=== PATIENT | female | born 1930 | race Caucasian/White ===

== ENCOUNTER 2017-11-05 11:20 | Inpatient (IN) | payer MEDICARE ==
[~2017-11-05] VITALS: Ht 160 cm; Wt 43.5 kg
[~2017-11-05 11:20] MED LIST: AMBIEN5 MG PO; AMOXICILLIN 50500 M1 PO; ANTIVERT25 MG PO; CEPHALEXIN500 MG PO; ETODOLAC 400 M400 MG; LEVAQUIN 500 M500 M4 PO; OMEPRAZOLE; PREDNISONE 10 M10 MG PO; PRILOSEC2.5 MG PO; SUDAFED30 MG PO; TOPROL XL25 MG PO; TRAMADOL 50 MG50 MG PO
[2017-11-05 11:46] VITALS: BP 142/80
[2017-11-05] MEDS ORDERED: HYDROCODONE-AP1 EAC6 PO (11:49)
[2017-11-05] MEDS ORDERED: XANAX 0.5 MG0.5 MG PO (11:49)
[2017-11-05 12:40] LABS: URINE BILIRUBIN NEGATIVE (Negative); URINE BLOOD NEGATIVE (Negative); URINE CLARITY CLEAR; URINE COLOR YELLOW; URINE GLUCOSE-RANDOM NEGATIVE (Negative); URINE KETONES NEGATIVE (Negative); URINE LEUKOCYTES-REFLEX 1+ (Negative); URINE NITRITE-REFLEX NEGATIVE (Negative); URINE PROTEIN NEGATIVE (Negative); URINE UROBILINOGEN 0.2 E.U./dl (0.2-1.0)
[2017-11-05 13:03] LABS: ABSOLUTE BASOPHILS 0.1 thou/uL (0.0-0.2); ABSOLUTE EOSINOPHILS 0.1 thou/uL (0.0-0.7); ABSOLUTE LYMPHOCYTES 1.7 thou/uL (0.8-5.3); ABSOLUTE MONOCYTES 0.7 thou/uL (0.0-1.2); ABSOLUTE NEUTROPHILS 6.2 thou/uL (1.6-8.1); BASOPHILS 0.6 %; EOSINOPHILS 0.8 %; HEMOGLOBIN 12.5 gm/dL (12.0-15.0); LYMPHOCYTES 19.4 %; MCH 30.4 pg (26.0-34.0); MCHC 32.8 g/dL (28.0-37.0); MCV 92.6 fL (80.0-100.0); MONOCYTES 8.4 %; MPV 7.2 fl. (7.2-11.1); NUCLEATED RBCS 0 /100WBC; PLATELET COUNT* 260 thou/uL (150-400); POLYS 70.8 %; RDW-CV 14.5 % (10.5-14.5); WBC 8.7 thou/uL (4.0-11.0)
[2017-11-05 13:19] LABS: ANION GAP 5 mmol/L (7-16); BUN 13 mg/dL (7-18); CHLORIDE 103 mmol/L (98-107); CO2 32 mmol/L (21-32); CREATININE 0.9 mg/dL (0.6-1.3); GLUCOSE 102 mg/dL (70-99); POTASSIUM 4.1 mmol/L (3.5-5.1); SODIUM 140 mmol/L (136-145)
[2017-11-05 13:24] LABS: ALBUMIN 3.3 g/dL (3.4-5.0); ALKALINE PHOSPHATASE 75 U/L (46-116); LIPASE 122 U/L (73-393); SGOT 18 U/L (15-37); SGPT 17 U/L (30-65); TOTAL BILIRUBIN 0.4 mg/dL (<0.1-1.0); TOTAL PROTEIN 7.2 g/dL (6.4-8.2); TROPONIN-I LEVEL <0.06 ng/mL (<0.06)
--- NOTE | 2017-11-05 15:06 | EKG ---
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: : 1930 Requested By: Sneha Menendez Order Number: [id number] MD: Dima Veras Measurements Intervals [place] Rate: 78 P: 32 IA: 198 QRS: 36 QRSD: 93 T: 47 QT: 401 QTc: 457 Interpretive Statements Sinus rhythm Consider left ventricular hypertrophy Compared to ECG 08/08/2017 10:30:29 No significant changes Electronically Signed On 11-05-2017 15:06:32 PAVER by Dima Veras [email or web address] <ELECTRONICALLY SIGNED> By: Dima Veras MD, [facility] 11/05/17 1506 1346 1346 Dima Veras MD, [facility] /EPI
[2017-11-05 15:24] VITALS: BP 180/64
[2017-11-05 15:30] VITALS: BP 176/62
[2017-11-05 20:00] VITALS: BP 166/72
[2017-11-06] VITALS: BP 124/70
[2017-11-06 04:45] LABS: HEMATOCRIT 33.8 % (37.0-47.0); HEMOGLOBIN 10.8 gm/dL (12.0-15.0); MCH 29.7 pg (26.0-34.0); MCHC 32.1 g/dL (28.0-37.0); MCV 92.5 fL (80.0-100.0); RBC 3.65 mil/uL (4.20-5.00); RDW-CV 14.4 % (10.5-14.5)
[2017-11-06 05:04] LABS: CALCIUM 8.3 mg/dL (8.5-10.1); CREATININE 0.7 mg/dL (0.6-1.3); MAGNESIUM 1.7 mg/dL (1.8-2.4); POTASSIUM 3.6 mmol/L (3.5-5.1)
[2017-11-06 08:00] VITALS: BP 151/75
--- NOTE | 2017-11-06 13:38 | 2DMMODE ---
[place] [address] 2 D/M-MODE ECHOCARDIOGRAM Name: MADIHA CAMERON Room: [address] IN [facility]#: [id number] Admission: 11/05/17 Attend Phys: Rey Andrews Discharge: Date of : 34 Date of Service: 11/06/17 1338 Report #: [id number] THIS REPORT FOR: //name// APPROVED REPORT Study performed: 11/06/2017 10:32:07 EXAM: Comprehensive 2D, Doppler, and color-flow Echocardiogram Patient Location: In-Patient Room #: [facility] Status: routine BSA: 1.41 HR: 67 bpm BP: 124/70 mmHg Rhythm: NSR Other Information Study Quality: Good Indications COPD ?e 2D Dimensions LVEF(%): 75.30 (>50%) IVSd: 13.02 (7-11mm) LVOT Diam: 19.60 (18-24mm) LVDd: 37.08 mm PWd: 10.12 (7-11mm) Ascending Ao: 33.75 (22-36mm) LVDs: 21.02 (25-40mm) Aortic Root: 28.96 mm Villarreal's LVEF: 75.30 % Volumes Left Atrial Volume (Systole) LA ESV Index: 43.00 mL/m2 Aortic Valve AoV Peak Foster.: 1.30 m/s AO Peak Gr.: 6.71 mmHg LVOT Max P.87 mmHg AO Mean Gr.: 3.39 mmHg LVOT Mean P.81 mmHg LVOT Max V: 1.31 m/s AO V2 VTI: 30.32 cm LVOT Mean V: 0.75 m/s LIZBETH (VTI): 2.89 cm2 LVOT V1 VTI: 29.02 cm AI Cecil: 2.21 m/s2 AI PHT: 467.56 [place] [address] 2 D/M-MODE ECHOCARDIOGRAM Name: MADIHA CAMERON Room: [address] IN M.R.#: [id number] Admission: 11/05/17 Attend Phys: Rey Andrews Discharge: Date of : 34 Date of Service: 11/06/17 1338 Report #: [id number] Mitral Valve E/A Ratio: 1.04 MV Decel. Time: 231.47 ms MV E Max Foster.: 0.89 m/s MV PHT: 67.13 ms MVA (PHT): 3.28 cm2 TDI E/Lateral E': 11.13 E/Medial E': 14.83 Medial E' Foster.: 0.06 m/s Lateral E' Foster.: 0.08 m/s Pulmonary Valve PV Peak Foster.: 0.78 m/s PV Peak Gr.: 2.45 mmHg Left Ventricle The left ventricle is normal size. There is normal LV segmental wall motion. There is normal left ventricular wall thickness. Left ventricular systolic function is normal. The left ventricular ejection fraction is within the normal range. LVEF is 55-60%. The left ventricular diastolic function is normal. Right Ventricle The right ventricle is normal size. The right ventricular systolic function is normal. Atria Left atrium is moderately dilated. The right atrium size is normal. Aortic Valve The aortic valve is normal in structure. Mild aortic regurgitation. There is no aortic valvular stenosis. Mitral Valve The mitral valve is normal in structure. Mild mitral regurgitation. No evidence of mitral valve stenosis. Tricuspid Valve The tricuspid valve is normal in structure. Unable to assess PA pressure. Trace tricuspid regurgitation. Pulmonic Valve The pulmonary valve is normal in structure. [place] [address] 2 D/M-MODE ECHOCARDIOGRAM Name: KRZYSZTOFZAYMADIHA Carter Room: [address] IN .R.#: [id number] Admission: 11/05/17 Attend Phys: Rey Andrews Discharge: Date of : 34 Date of Service: 11/06/17 1338 Report #: [id number] Great Vessels The aortic root is normal in size. IVC is normal in size and collapses with >50% inspiration Pericardium There is no pericardial effusion. <Conclusion> LVEF is 55-60%. Left atrium is moderately dilated. Mild aortic regurgitation. Mild mitral regurgitation. <ELECTRONICALLY SIGNED> By: Dima Veras MD, FACC 11/06/17 1338 1338 1338 Dima Veras MD, FACC /INF
[2017-11-06 16:02] VITALS: BP 144/80
[2017-11-06 21:00] VITALS: BP 134/50
[2017-11-07 03:56] LABS: CALCIUM 8.4 mg/dL (8.5-10.1); CREATININE 0.7 mg/dL (0.6-1.3); MAGNESIUM 1.7 mg/dL (1.8-2.4); POTASSIUM 3.6 mmol/L (3.5-5.1)
[2017-11-07 04:22] VITALS: BP 148/62
[2017-11-07 08:00] VITALS: BP 139/59
[2017-11-07 15:47] VITALS: BP 139/74
[2017-11-07 21:00] VITALS: BP 164/55
[2017-11-08 05:16] LABS: HEMATOCRIT 36.5 % (37.0-47.0); HEMOGLOBIN 11.9 gm/dL (12.0-15.0); MCH 30.1 pg (26.0-34.0); MCHC 32.6 g/dL (28.0-37.0); MCV 92.3 fL (80.0-100.0); MPV 7.9 fl. (7.2-11.1); RBC 3.95 mil/uL (4.20-5.00); RDW-CV 14.8 % (10.5-14.5); WBC 7.8 thou/uL (4.0-11.0)
[2017-11-08 05:37] LABS: ALBUMIN 3.3 g/dL (3.4-5.0); CALCIUM 9.1 mg/dL (8.5-10.1); CREATININE 0.7 mg/dL (0.6-1.3); MAGNESIUM 2.1 mg/dL (1.8-2.4); POTASSIUM 3.5 mmol/L (3.5-5.1); TOTAL BILIRUBIN 0.4 mg/dL (<0.1-1.0); TOTAL PROTEIN 6.5 g/dL (6.4-8.2)
[2017-11-08 08:25] VITALS: BP 160/78
[2017-11-08 08:27] VITALS: BP 160/78
[2017-11-08 16:16] VITALS: BP 153/72
[2017-11-09 04:00] VITALS: BP 136/68
[2017-11-09 04:44] LABS: HEMATOCRIT 35.9 % (37.0-47.0); HEMOGLOBIN 11.8 gm/dL (12.0-15.0); MCHC 32.9 g/dL (28.0-37.0); MCV 91.3 fL (80.0-100.0); MPV 7.7 fl. (7.2-11.1); RBC 3.93 mil/uL (4.20-5.00); RDW-CV 14.5 % (10.5-14.5); WBC 7.8 thou/uL (4.0-11.0)
[2017-11-09 05:20] LABS: ALBUMIN 3.2 g/dL (3.4-5.0); CALCIUM 8.9 mg/dL (8.5-10.1); CREATININE 0.7 mg/dL (0.6-1.3); MAGNESIUM 1.8 mg/dL (1.8-2.4); TOTAL BILIRUBIN 0.4 mg/dL (<0.1-1.0); TOTAL PROTEIN 6.8 g/dL (6.4-8.2)
[2017-11-09 07:52] VITALS: BP 157/79
[2017-11-09 09:08] VITALS: BP 157/79
[2017-11-09] MEDS ORDERED: NORVASC5 MG PO (14:01)
[2017-11-09] MEDS ORDERED: BACID CAPLET1 EACH PO (14:02)
[2017-11-09] MEDS ORDERED: METAMUCIL1 EAC1 PO (14:02)
[2018-03-29] MEDS ORDERED: TYLENOL325 MG PO (00:50)
[2018-03-29] MEDS ORDERED: AMLODIPINE BESYL5 M1 PO (09:18)
[2018-03-29] MEDS ORDERED: PROTONIX 20 MG20 M1 PO (09:18)
[2018-03-29] MEDS ORDERED: METOPROLOL SUCC25 M1 PO (09:18)
[2018-03-29] MEDS ORDERED: MIRALAX17 GM PO (10:54)
[2018-04-13] MEDS ORDERED: KEFLEX250 MG (19:12)
== END 2017-11-09 15:26 | disposition home or self-care (01) | DRG 389 ==
LOC: M.ERS 11:20 → M.ORTHSURG 14:46 → M.TBA-ER 14:46 → M.ORTHSURG 15:29
PROVIDERS: Family Medicine; Internal Medicine; Nurse Practitioner Family; ADMIT Internal Medicine
DX: K56.600 Partial intestinal obstruction, unspecified as to cause (principal); E44.0 Moderate protein-calorie malnutrition; Z68.1 Body mass index [BMI] 19.9 or less, adult; J98.11 Atelectasis; K59.00 Constipation, unspecified; Z96.642 Presence of left artificial hip joint; J44.9 Chronic obstructive pulmonary disease, unspecified; I11.9 Hypertensive heart disease without heart failure; F41.9 Anxiety disorder, unspecified; E87.8 Other disorders of electrolyte and fluid balance, not elsewhere classified

== ENCOUNTER 2018-02-05 01:24 | Inpatient (IN) | payer MEDICARE ==
[~2018-02-05] VITALS: Ht 160 cm; Wt 49.0 kg
[~2018-02-05 01:24] MED LIST changes: +BACID CAPLET1 EACH PO; +HYDROCODONE-AP1 EAC6 PO; +METAMUCIL1 EAC1 PO; +NORVASC5 MG PO; +XANAX 0.5 MG0.5 MG PO
[2018-02-05 01:25] VITALS: BP 228/69
[2018-02-05 02:04] LABS: HEMATOCRIT 39.1 % (37.0-47.0); HEMOGLOBIN 12.5 gm/dL (12.0-15.0); MCH 29.8 pg (26.0-34.0); MCHC 31.9 g/dL (28.0-37.0); MCV 93.5 fL (80.0-100.0); MPV 7.3 fl. (7.2-11.1); NUCLEATED RBCS 0 /100WBC; PLATELET COUNT* 320 thou/uL (150-400); RBC 4.19 mil/uL (4.20-5.00); WBC 12.9 thou/uL (4.0-11.0)
[2018-02-05 02:21] LABS: URINE CLARITY CLEAR; URINE COLOR YELLOW
[2018-02-05 02:22] LABS: URINE BILIRUBIN NEGATIVE (Negative); URINE BLOOD NEGATIVE (Negative); URINE GLUCOSE-RANDOM TRACE (Negative); URINE KETONES NEGATIVE (Negative); URINE LEUKOCYTES-REFLEX 1+ (Negative); URINE NITRITE-REFLEX NEGATIVE (Negative); URINE PROTEIN NEGATIVE (Negative); URINE UROBILINOGEN 0.2 E.U./dl (0.2-1.0)
[2018-02-05 02:37] LABS: SQUAMOUS 0-3 Few /LPF (0-3); WBC CLUMPS Few (None Seen)
[2018-02-05 02:38] LABS: BACTERIA-REFLEX >30 Many /HPF (None Seen); CASTS None Seen /LPF (None Seen); CRYSTALS None Seen /LPF (None Seen); MUCUS 0-3 Light strn/LPF (None Seen); URINE RBC 0-2 Rare /HPF (0-2)
[2018-02-05 02:51] LABS: ANION GAP 10 mmol/L (7-16); BUN 11 mg/dL (7-18); CALCIUM 8.8 mg/dL (8.5-10.1); CHLORIDE 101 mmol/L (98-107); CO2 30 mmol/L (21-32); CREATININE 0.9 mg/dL (0.6-1.3); GLUCOSE 112 mg/dL (70-99); POTASSIUM 3.4 mmol/L (3.5-5.1); SODIUM 141 mmol/L (136-145)
[2018-02-05 02:59] LABS: ALBUMIN 3.6 g/dL (3.4-5.0); ALKALINE PHOSPHATASE 69 U/L (46-116); LIPASE 123 U/L (73-393); MAGNESIUM 1.8 mg/dL (1.8-2.4); SGOT 19 U/L (15-37); SGPT 18 U/L (30-65); TOTAL BILIRUBIN 0.6 mg/dL (<0.1-1.0); TROPONIN-I LEVEL <0.06 ng/mL (<0.06)
[2018-02-05 03:00] LABS: NT-PRO BRAIN NAT PEPTIDE 755 pg/mL (<300)
[2018-02-05 03:55] VITALS: BP 138/72
[2018-02-05 05:07] LABS: ABSOLUTE LYMPHOCYTES 0.5 thou/uL (0.8-5.3); ABSOLUTE MONOCYTES 0.6 thou/uL (0.0-1.2); ABSOLUTE NEUTROPHILS 11.7 thou/uL (1.6-8.1); ANISOCYTOSIS Occasional
[2018-02-05 05:08] LABS: CLUMPED PLTS OCCASIONAL; PLATELET ESTIMATE ADEQUATE
[2018-02-05 08:39] VITALS: BP 133/51
--- NOTE | 2018-02-05 11:03 | EKG ---
[place] [address] ELECTROCARDIOGRAM REPORT Name: MADIHA CAMERON Room: [address] IN [facility]#: [id number] Admission: 02/05/18 Attend Phys: Mary Powell Discharge: Date of : 32 Report #: [id number] THIS REPORT FOR: //name// [facility] ED Test Date: 2018-02-05 Test Time: 01:38:39 Pat Name: MADIHA CAMERON Department: Room: Gender: Javascript Engineer: ARUNA Machado : 1930 Requested By: Paco Orantes Order Number: [id number] MD: Dima Veras Measurements Intervals [place] Rate: 98 P: 85 TN: 211 QRS: 35 QRSD: 85 T: 44 QT: 386 QTc: 493 Interpretive Statements Sinus rhythm Borderline prolonged TN interval Consider left ventricular hypertrophy ST elevation, consider early repolarization Borderline prolonged QT interval Compared to ECG 11/05/2017 13:46:46 no change Electronically Signed On 02-05-2018 11:02:44 CDT by Dima Veras [email or web address] <ELECTRONICALLY SIGNED> By: Dima Veras MD, [facility] 02/05/18 1102 0138 0138 Dima Veras MD, [facility] /EPI
[2018-02-05 13:02] VITALS: BP 126/42
[2018-02-05 16:08] VITALS: BP 128/62
[2018-02-05 19:40] VITALS: BP 136/72
[2018-02-06] VITALS: BP 140/58
[2018-02-06 04:00] VITALS: BP 123/56
[2018-02-06 04:37] LABS: HEMATOCRIT 37.1 % (37.0-47.0); HEMOGLOBIN 11.6 gm/dL (12.0-15.0); MCH 29.8 pg (26.0-34.0); MCHC 31.2 g/dL (28.0-37.0); MCV 95.5 fL (80.0-100.0); MPV 7.8 fl. (7.2-11.1); RBC 3.89 mil/uL (4.20-5.00); RDW-CV 15.3 % (10.5-14.5); WBC 22.7 thou/uL (4.0-11.0)
[2018-02-06 04:45] LABS: CALCIUM 8.5 mg/dL (8.5-10.1); CREATININE 0.7 mg/dL (0.6-1.3); MAGNESIUM 1.9 mg/dL (1.8-2.4); POTASSIUM 4.8 mmol/L (3.5-5.1)
[2018-02-06 07:35] VITALS: BP 147/69
[2018-02-06 12:00] VITALS: BP 127/61
[2018-02-06 16:00] VITALS: BP 137/62
[2018-02-06 20:00] VITALS: BP 143/67
[2018-02-07] VITALS (7 sets, daily range): BP systolic 131–152; BP diastolic 51–69
[2018-02-07 04:47] LABS: HEMATOCRIT 33.7 % (37.0-47.0); HEMOGLOBIN 10.9 gm/dL (12.0-15.0); MCH 29.9 pg (26.0-34.0); MCHC 32.4 g/dL (28.0-37.0); MCV 92.2 fL (80.0-100.0); MPV 8.1 fl. (7.2-11.1); RBC 3.66 mil/uL (4.20-5.00); WBC 17.1 thou/uL (4.0-11.0)
[2018-02-07 05:01] LABS: CALCIUM 8.8 mg/dL (8.5-10.1); CREATININE 0.8 mg/dL (0.6-1.3); MAGNESIUM 1.9 mg/dL (1.8-2.4)
[2018-02-07 05:10] LABS: POTASSIUM 3.7 mmol/L (3.5-5.1)
[2018-02-08 04:18] VITALS: BP 141/71
--- NOTE | 2018-02-08 07:49 | CON ---
[facility] [address] [place] [address] CONSULTATION Name: MADIHA CAMERON Room: [address] IN M.R.#: [id number] Admission: 02/05/18 Attend Phys: Mary Powell Discharge: Date of : 32 Report #: [id number] THIS REPORT FOR: //name// CC: Jameel Torres REQUESTING PHYSICIAN: Dr. Mckenzie Rodrigez. REASON FOR CONSULTATION: Chest pain and respiratory failure. DISCUSSION: The patient is an 87-year-old woman who has a history of underlying bronchiectasis and COPD. She is a lifelong nonsmoker. She has not been steroid or O2 dependent. She is followed in my office with her last visit in September of 2017. She presented to the Emergency Department this morning. Unfortunately, she is not a very good historian. Does tend to ramble at times. Complaints of right-sided chest pain is actually what triggered her visit. It is not clear exactly how long she has been having this. The timing tends to vary at different times we talked about it. Currently, is pain free at the time I am seeing her. Because of her bronchiectasis, she has typically had a chronic cough and sputum production. However, she notes overall she has been coughing less and having less sputum than normal, which she has been bringing up. It is just slightly discolored recently. Denies any hemoptysis. She has not checked her temperature, but has had spells where she has felt hot and cold and wondered if she was not running a fever. At home, she uses a nebulizer with albuterol, which she typically does 3 times a day. We have tried other medications and inhalers in the past or at least have recommended them though she has never been willing to follow through with that. She is not on any oxygen. Her O2 saturations have always been in the 90s when seen in the office. When seen in the Emergency Department today, it does not appear that she was in hot distress. Did have a temperature of 38 degrees. Her white blood cell count was 12,900 with a mild left shift. X-ray suggested a right lower lobe infiltrate. She was given azithromycin and Rocephin in the ED and has been admitted. At the time I am seeing her, she is feeling fairly comfortable. In fact, she is asking when she can go home. States she has a lot of yard work to do. She has had the Pneumovax and the Prevnar. I believe she had the flu vaccine for this Influenza season as well. She has the bronchiectasis as noted. She had a left lower lobectomy done in 1952 [place] [address] CONSULTATION Name: MADIHA CAMERON Room: [address] IN .R.#: [id number] Admission: 02/05/18 Attend Phys: Mary Powell Discharge: Date of : 32 Report #: [id number] PAST MEDICAL HISTORY: Remarkable for the COPD and bronchiectasis as noted. She has not been steroid or O2 dependent. She has had some arrhythmias in the past, type unknown. Has previously seen Dr. Rice, but no longer has to follow up with Cardiology. Prior echocardiograms done here at [place] have not shown a decrease in her ejection fraction. She has had issues with dysphagia. Had recent EGD and colonoscopy done (December 2017). Had a colon polyp removed. She also had a mild Schatzki's ring, which was dilated. Small hiatal hernia. Did have nonbleeding erosive gastropathy noted. Had recommended that she use Prilosec 40 mg daily and was to have followup within the GI office (Dr. Howard). She also has history of prior cholecystectomy, hysterectomy with BSO, hip replacement, left shoulder surgery, hypertension, GERD. HOME MEDICATIONS: Albuterol via nebulizer. Appears her other medications may be p.r.n. hydrocodone, , metoprolol, Prilosec, acidophilus, Norvasc and Metamucil. REVIEW OF SYSTEMS: ROS was done. Question reliability of some of her responses. She denies any recent problems with dysphagia since she was dilated. No nausea or vomiting. She does tend towards constipation. She has not noted any blood in her stools. She has chronic lower extremity edema. She does not believe that is changed. Denies recent falls. The falls have been an issue in the past. Appetite has been fair. She does not believe she has had any recent weight loss. FAMILY HISTORY: Positive for cancer, heart disease. PHYSICAL EXAMINATION: GENERAL APPEARANCE: A very thin woman. She is sitting up in her chair. She is alert, cooperative and is quite pleasant. HEENT: Head is normocephalic. Sclerae are nonicteric. Mucous membranes a little dry, but no thrush is seen. NECK: Negative for any adenopathy. Neck muscles are quite developed. No supraclavicular adenopathy. HEART: Regular. She has a grade 1/6 systolic murmur. LUNGS: She has a well-healed left thoracotomy scar. She has few crackles heard in the right base. Decreased breath sounds in the left base. Otherwise, no wheezing is heard. ABDOMEN: Soft, without appreciable hepatosplenomegaly. LOWER EXTREMITIES: She does have trace edema. Does have some venous stasis changes. SKIN: Warm and dry. NEUROLOGIC: Alert and oriented. LABORATORY AND X-RAY FINDINGS: BUN is 11, creatinine 0.9, potassium is 3.4. ProBNP 755. White blood cell count 12,900, hemoglobin 12.5, hematocrit of 39.1, platelets are normal. Prior alpha 1 antitrypsin [place] [address] CONSULTATION Name: MADIHA CAMERON Room: [address] IN [facility].#: [id number] Admission: 02/05/18 Attend Phys: Mary Powell Discharge: Date of : 32 Report #: [id number] cultures have been sent. Urine is pending. IMPRESSION: 1. Chest pain has resolved, exact etiology not clear. It is possible she may have had some pleuritic pain, perhaps related to pneumonia. She does have crackles heard in the right base. There are some changes on her x-ray. Given the amount of scarring that she has related to the bronchiectasis, it is difficult to know what is new versus what is old. 2. Recent EGD revealing nonbleeding erosive gastropathy. PLAN: 1. Check sputum if able. 2. CT scan of her chest. We will get a CTA of her chest, which will also allow us to rule out a PE as a cause of her pain. Can also visualize the lung santamaria. 3. I would continue with antibiotics. 4. Neb treatments with the DuoNeb every 4 hours. 5. O2 as needed and wean. 6. Discussed resuscitative status with her. She apparently does not have paperwork filled out. However, she does wish aggressive medical care, she would not want to go through cardiopulmonary resuscitation nor be intubated. <ELECTRONICALLY SIGNED> By: Amanda Carrasquillo MD 02/08/18 0749 1023 1932Amanda Carrasquillo MD /nt
[2018-02-08 08:00] VITALS: BP 168/60
[2018-02-08 11:30] VITALS: BP 173/53
[2018-02-08 16:00] VITALS: BP 137/60
[2018-02-08 20:00] VITALS: BP 114/55
[2018-02-09 04:38] VITALS: BP 142/62
[2018-02-09 08:00] VITALS: BP 158/82
[2018-02-09 15:28] VITALS: BP 137/71
[2018-02-09 22:00] VITALS: BP 151/63
[2018-02-10 08:00] VITALS: BP 172/88
[2018-02-10] MEDS ORDERED: HYDROCODONE-AP1 EAC6 PO (09:02)
[2018-02-10] MEDS ORDERED: XANAX 0.5 MG0.5 MG PO (09:02)
[2018-02-10] MEDS ORDERED: PREDNISONE 20 M20 MG PO (09:02)
[2018-02-10] MEDS ORDERED: TRAMADOL 50 MG50 MG PO (09:02)
[2018-02-10] MEDS ORDERED: DUONEB 2.5-0.5 M3 ML INH (09:02)
[2018-02-10] MEDS ORDERED: AMBIEN5 MG PO (09:02)
[2018-02-10] MEDS ORDERED: LEVAQUIN 500 M500 M2 PO (09:02)
[2018-02-10 11:18] VITALS: BP 172/88
[2018-03-29] MEDS ORDERED: TYLENOL325 MG PO (00:50)
[2018-03-29] MEDS ORDERED: PROTONIX 20 MG20 M1 PO (09:18)
[2018-03-29] MEDS ORDERED: METOPROLOL SUCC25 M1 PO (09:18)
[2018-03-29] MEDS ORDERED: AMLODIPINE BESYL5 M1 PO (09:18)
[2018-03-29] MEDS ORDERED: MIRALAX17 GM PO (10:54)
[2018-04-13] MEDS ORDERED: KEFLEX250 MG (19:12)
== END 2018-02-10 13:10 | DRG 871 ==
LOC: M.ERS 01:24 → M.TBA-ER 03:18 → M.2W 03:18 → M.3W 02-09 17:54
PROVIDERS: Emergency Medicine Emergency Medical Services; Internal Medicine; ADMIT Internal Medicine
PROC: 5A09357 Assistance with Respiratory Ventilation, Less than 24 Consecutive Hours, Continuous Positive Airway Pressure (ICD-10-PCS; principal; 2018-02-05)
DX: A41.9 Sepsis, unspecified organism (principal); J15.6 Pneumonia due to other Gram-negative bacteria; J15.4 Pneumonia due to other streptococci; J96.21 Acute and chronic respiratory failure with hypoxia; J44.0 Chronic obstructive pulmonary disease with (acute) lower respiratory infection; I10 Essential (primary) hypertension; K21.9 Gastro-esophageal reflux disease without esophagitis; Z96.642 Presence of left artificial hip joint; Z90.2 Acquired absence of lung [part of]; Z79.899 Other long term (current) drug therapy; Z90.49 Acquired absence of other specified parts of digestive tract; Z90.710 Acquired absence of both cervix and uterus; Z90.79 Acquired absence of other genital organ(s); Z90.722 Acquired absence of ovaries, bilateral; Z80.8 Family history of malignant neoplasm of other organs or systems; Z82.49 Family history of ischemic heart disease and other diseases of the circulatory system

== ENCOUNTER 2018-02-27 19:06 | Inpatient (IN) | payer MEDICARE ==
[~2018-02-27] VITALS: Ht 160 cm; Wt 38.6 kg
[~2018-02-27 19:06] MED LIST changes: +DUONEB 2.5-0.5 M3 ML INH; +LEVAQUIN 500 M500 M2 PO; +PREDNISONE 20 M20 MG PO
[2018-02-27 19:12] VITALS: BP 146/72
[2018-02-27 19:31] LABS: HEMATOCRIT 40.5 % (37.0-47.0); MCH 30.1 pg (26.0-34.0); MCHC 32.1 g/dL (28.0-37.0); MCV 93.8 fL (80.0-100.0); MPV 7.4 fl. (7.2-11.1); NUCLEATED RBCS 0 /100WBC; PLATELET COUNT* 223 thou/uL (150-400); RBC 4.32 mil/uL (4.20-5.00); RDW-CV 14.9 % (10.5-14.5); WBC 13.1 thou/uL (4.0-11.0)
[2018-02-27 19:40] LABS: CALCIUM 8.8 mg/dL (8.5-10.1); CREATININE 0.9 mg/dL (0.6-1.3); POTASSIUM 4.1 mmol/L (3.5-5.1); PROTIME 9.4 Seconds (9.20-11.50)
[2018-02-27 19:45] LABS: ALBUMIN 3.5 g/dL (3.4-5.0); TOTAL BILIRUBIN 0.6 mg/dL (<0.1-1.0); TOTAL PROTEIN 6.7 g/dL (6.4-8.2)
[2018-02-27 19:57] LABS: ABSOLUTE EOSINOPHILS 0.1 thou/uL (0.0-0.7); ABSOLUTE LYMPHOCYTES 2.4 thou/uL (0.8-5.3); ABSOLUTE MONOCYTES 0.5 thou/uL (0.0-1.2); ABSOLUTE NEUTROPHILS 10.1 thou/uL (1.6-8.1); ATYPICAL LYMPHS 4 %; PLATELET ESTIMATE ADEQUATE
[2018-02-27 23:51] VITALS: BP 164/72
[2018-02-28] VITALS: BP 165/69
[2018-02-28 02:14] LABS: URINE BILIRUBIN NEGATIVE (Negative); URINE BLOOD NEGATIVE (Negative); URINE CLARITY CLEAR; URINE COLOR YELLOW; URINE GLUCOSE-RANDOM NEGATIVE (Negative); URINE KETONES 2+ (Negative); URINE LEUKOCYTES-REFLEX NEGATIVE (Negative); URINE NITRITE-REFLEX NEGATIVE (Negative); URINE PROTEIN NEGATIVE (Negative); URINE SPECIFIC GRAVITY 1.025 (1.005-1.030); URINE UROBILINOGEN 0.2 E.U./dl (0.2-1.0)
[2018-02-28 03:05] VITALS: BP 128/55
[2018-02-28 03:57] LABS: HEMATOCRIT 36.4 % (37.0-47.0); HEMOGLOBIN 11.7 gm/dL (12.0-15.0); MCH 29.9 pg (26.0-34.0); MCHC 32.3 g/dL (28.0-37.0); MCV 92.7 fL (80.0-100.0); RBC 3.92 mil/uL (4.20-5.00); RDW-CV 15.1 % (10.5-14.5); WBC 12.4 thou/uL (4.0-11.0)
[2018-02-28 04:14] LABS: ALBUMIN 2.7 g/dL (3.4-5.0); CREATININE 0.7 mg/dL (0.6-1.3); POTASSIUM 4.5 mmol/L (3.5-5.1); TOTAL BILIRUBIN 0.7 mg/dL (<0.1-1.0); TOTAL PROTEIN 5.2 g/dL (6.4-8.2)
--- NOTE | 2018-02-28 05:35 | NUR ---
PT ADMITTED TO UNIT. PT ORIENTED TO ROOM, WENT OVER FALL AGREEMENT WENT OVER, CALL LIGHT SHOWN. PT STATED UNDERSTANDING. IV PATENT, FLUIDS INFUSING. NG TUBE PLACEMENT CONFIRMED BY X-RAY AND HOOKED UP TO SUCTION. CARLISLE THAT WAS PLACED IN ER HAD NOT DRAINED ANYTHING, PT BLADDER SCANNED, READ OVER 300ML. NEW CARLISLE PLACED AND DRAINED BLADDER, UA SENT TO LAB. PT REMAINED NPO. WILL CONTINUE WITH PLAN OF CARE.
--- NOTE | 2018-02-28 06:42 | NUR ---
PTS HOME MEDICATION LIST IS NOT UP TO DATE. PT STATES SHE DOES NOT REMEMBER HER HOME MEDICATIONS. PT INSTRUCTED TO HAVE SON BRING MED LIST UP TO HOSPITAL TODAY.
[2018-02-28 09:00] VITALS: BP 143/59
--- NOTE | 2018-02-28 13:35 | NUR ---
ASSUMED CARES OF PT AT 0700. PT IN BED, BED IN LOW LOCKED POSITION. FALL PRECAUTIONS IN PLACE. CALL BUTTON AND PERSONAL ITEMS IN PT REACH. PT A&O X4, VSS ON RA, HRRR PER AUSCULTATION, LUNGS CLEAR TO DIMINISHED BILATERALLY. ABD ACTIVE 4 QUAD. LAST BM YESTERDAY, THURSDAY, FEBRUARY 27, 2018. CARLISLE CATH PATENT WITH CLEAR YELLOW URINE, FOR URINE RETENTION. LEFT LOWER LOBE AUSCULTATED SOME COARSENESS EXPIRATORY. PT USES NEBULIZER AT HOME FOR BREATHING TREATMENTS, HX OF LEFT LUNG LOBE REMOVAL. SKIN INTACT, SCATTERED BRUISING AND SCARS. PT PLEASANT AND COOPERATIVE. NPO AT THIS TIME PER SURGERY R/T SBO. PT DENIES PAIN AND NAUSEA AT THIS TIME. HOURLY ROUNDING CONTINUES. WILL CONTINUE TO MONITOR PT STATUS AND PROGRESS. PT UP ONE ASSIST WITH WALKER/CANE.
--- NOTE | 2018-02-28 15:56 | EKG ---
[place] [address] ELECTROCARDIOGRAM REPORT Name: MADIHA CAMERON Room: [address] ADM IN M.R.#: [id number] Admission: 02/27/18 Attend Phys: Carroll Garnica, Discharge: Date of : 32 Report #: [id number] THIS REPORT FOR: //name// [facility] ED Test Date: 2018-02-27 Test Time: 19:32:21 Pat Name: MADIHA CAMERON Department: Room: [address] Gender: F Circus Performer: BD : 1930 Requested By: Naida Sanchez Order Number: [id number] Michele MD: Sudarshan Root Measurements Intervals [place] Rate: 85 P: 93 CT: 155 QRS: 37 QRSD: 82 T: 71 QT: 431 QTc: 513 Interpretive Statements Sinus rhythm Possible left atrial enlargement Abnormal R-wave progression, early transition Probable left ventricular hypertrophy Prolonged QT interval Compared to ECG 02/05/2018 01:38:39 ST (T wave) deviation still present Electronically Signed On 02-28-2018 15:56:37 CDT by Sudarshan Root [email or web address] <ELECTRONICALLY SIGNED> By: Sudarshan Root MD, FACC 02/28/18 1556 31 31 Sudarshan Root MD, FAC /EPI
--- NOTE | 2018-02-28 15:57 | EKG ---
[place] [address] ELECTROCARDIOGRAM REPORT Name: MADIHA CAMERON Room: [address] IN [facility].#: [id number] Admission: 02/27/18 Attend Phys: Carroll Garnica, Discharge: Date of : 32 Report #: [id number] THIS REPORT FOR: //name// [facility] ED Test Date: 2018-02-27 Test Time: 20:15:02 Pat Name: MADIHA CAMERON Department: Room: Gender: F Continuity Coordinator: RAJENDRA : 1930 Requested By: Naida Sanchez Order Number: [id number] MD: Sudarshan Root Measurements Intervals [place] Rate: 80 P: 67 KS: 153 QRS: 19 QRSD: 80 T: 40 QT: 419 QTc: 484 Interpretive Statements Sinus rhythm Atrial premature complex Abnormal R-wave progression, early transition Probable left ventricular hypertrophy Borderline prolonged QT interval Compared to ECG 02/05/2018 01:38:39 Atrial premature complex(es) now present ST (T wave) deviation no longer present Electronically Signed On 02-28-2018 15:57:30 CDT by Sudarshan Root [email or web address] <ELECTRONICALLY SIGNED> By: Sudarshan Root MD, FACC 02/28/18 1557 14 14 Sudarshan Root MD, FACC /EPI
[2018-02-28 17:03] VITALS: BP 173/63
[2018-02-28 20:10] VITALS: BP 175/69
--- NOTE | 2018-02-28 21:43 | NUR ---
REPORT TO FREIGHT FORWARDER FOR CONTINUED CARES. PT REMAINS STABLE. PT C/O STOMACH PAIN, DULL ACHE, PT STATES IT FEELS LIKE STOMACH IS BEING SUCKED INTO HER BACK. IV ZOFRAN AND FENTANYL ADMINISTERED, MINIMAL EFFECTIVENESS. PT HELPED TO REPOSITION WITH ALL OF TUBING. PT STATED LAYING FLAY OR LOW ON HER BACK HELPED WHILE SHE STRETCHED OUT. HOURLY ROUNDING COMPLETED.
[2018-02-28 23:43] VITALS: BP 136/64
[2018-03-01 04:03] VITALS: BP 158/59
[2018-03-01 04:45] LABS: ALBUMIN 2.5 g/dL (3.4-5.0); CALCIUM 7.8 mg/dL (8.5-10.1); CREATININE 0.6 mg/dL (0.6-1.3); TOTAL BILIRUBIN 0.5 mg/dL (<0.1-1.0); TOTAL PROTEIN 5.4 g/dL (6.4-8.2)
[2018-03-01 04:54] LABS: HEMATOCRIT 36.7 % (37.0-47.0); HEMOGLOBIN 12.1 gm/dL (12.0-15.0); MCH 30.3 pg (26.0-34.0); MCHC 32.9 g/dL (28.0-37.0); MPV 8.9 fl. (7.2-11.1); RBC 3.99 mil/uL (4.20-5.00); RDW-CV 14.6 % (10.5-14.5)
[2018-03-01 05:03] LABS: POTASSIUM 3.5 mmol/L (3.5-5.1)
--- NOTE | 2018-03-01 06:00 | NUR ---
PT SLEPT MOST OF SHIFT. ASSESSMENT DOCUMENTED. MEDS GIVEN PER E-MAR. IV PATENT, FLUIDS INFUSING. NG TUBE IN PLACE. CARLISLE DRAINING DEPENDENTLY. PAIN MEDS GIVEN PER E-MAR WITH RELEIF. WILL CONTINUE WITH PLAN OF CARE.
[2018-03-01 08:20] VITALS: BP 177/73
[2018-03-01 16:16] VITALS: BP 115/70
[2018-03-01 16:23] VITALS: BP 143/53
--- NOTE | 2018-03-01 18:56 | NUR ---
PATIENT RESTING IN BED. PATIENT DENIES ANY PAIN AT THIS TIME. PATIENT IS NPO WITH NG TUBE TO LOW INTERMITTENT SUCTION. OUTPUT IS GREEN. PATIENT HAS BEEN UP TO CHAIR X 1 TODAY. PATIENT HAS IVF'S INFUSING, MAGNESIUM AND POTASSIUM BEING REPLACED ORDERED. PATIENT DENIES ANY NEEDS AT THIS TIME. CALL LIGHT WITHIN REACH. WILL CONTINUE TO MONITOR.
[2018-03-01 22:00] VITALS: BP 134/54
[2018-03-02 04:15] LABS: HEMATOCRIT 37.2 % (37.0-47.0); MCHC 32.3 g/dL (28.0-37.0); MCV 92.9 fL (80.0-100.0); RBC 4.01 mil/uL (4.20-5.00); RDW-CV 14.7 % (10.5-14.5); WBC 11.5 thou/uL (4.0-11.0)
[2018-03-02 04:28] LABS: CREATININE 0.7 mg/dL (0.6-1.3); PHOSPHORUS* 2.2 mg/dL (2.5-4.9); POTASSIUM 3.4 mmol/L (3.5-5.1)
--- NOTE | 2018-03-02 05:24 | NUR ---
PT HAS SLEPT ON AND OFF OVERNIGHT. DENIES N/V OR NEED FOR PAIN MED. NGT TO LIS DRAINING GREEN LIQUID. CARLISLE PATENT YELLOW URINE. IVF INFUSING PER PUMP, MAG AND K GIVEN OVERNIGHT, AM LABS DRAWN. PT DENIES PASSING FLATUS, NO BM. PT TURNED AND ASSISTED TO REPOSITION Q2 HOURS AND PRN PT WOULD ALLOW. ABLE TO USE CALL LITE AND MAKE NEEDS KNOWN.
[2018-03-02 07:50] VITALS: BP 156/61
[2018-03-02 16:00] VITALS: BP 138/63
--- NOTE | 2018-03-02 16:24 | NUR ---
SW met with pt to complete initial assessment, introduce self, and SW role. Pt known to this SW from previous admission. Pt said that she had discharged home from [facility] and had HH services. Pt anticipates to be able to dc home alone with HH services and pt thinks she will remain here a couple of days. SW to continue to follow to assist with safe dc planning.
--- NOTE | 2018-03-02 16:39 | NUR ---
PATIENT A&OX4, ROOM AIR, IV LEFT AC FLUIDS INFUSSING. UP WITH ASSISTX1, STEADY GAIT. NG TO RIGHT NARE AT 60, CLAMPED AT 0800. ADVANCED TO CLEAR LIQUID DIET, TOLERATING WELL. CARLISLE CATH IN PLACE FOR RETENTION. NO C/O PAIN/N/V. NO OTHER CONCERNS AT THIS TIME. APPROPRAITE AND COOPORATIVE WITH CARE.
[2018-03-03 00:04] VITALS: BP 152/62
[2018-03-03 04:37] LABS: HEMATOCRIT 34.7 % (37.0-47.0); HEMOGLOBIN 11.5 gm/dL (12.0-15.0); MCH 30.5 pg (26.0-34.0); MCV 92.4 fL (80.0-100.0); MPV 8.2 fl. (7.2-11.1); RBC 3.76 mil/uL (4.20-5.00); RDW-CV 14.5 % (10.5-14.5); WBC 10.7 thou/uL (4.0-11.0)
[2018-03-03 05:00] LABS: CALCIUM 7.9 mg/dL (8.5-10.1); CREATININE 0.7 mg/dL (0.6-1.3); MAGNESIUM 2.2 mg/dL (1.8-2.4); PHOSPHORUS* 2.9 mg/dL (2.5-4.9); POTASSIUM 3.2 mmol/L (3.5-5.1)
--- NOTE | 2018-03-03 06:08 | NUR ---
ASSESSMENT COMPLETE. PT VOMITTING AND NAUSEOUS AT BEGINING OF SHIFT, ZOFRAN GIVEN WITHOUT RELIEF. NG STARTED TO LIS AT 2350 WITH 450ML OUTPUT. PT REPORTS RELIEF AND ABLE TO SLEEP ONCE NG HOOKED BACK UP. PT HAS IV FLUIDS INFUSING. PT DENIES PAIN. PT IS FALL RISK, BED ALARM ON. PT TURNS SELF IN BED. CARLISLE IN PLACE WITH ADEQAUE OUTPUT. SEE ASSESSMENT AND VITALS FOR OTHER DETAILS. CALL LIGHT WITHIN REACH, WILL CONTINUE PLAN OF CARE
[2018-03-03 08:00] VITALS: BP 134/59
[2018-03-03 16:19] VITALS: BP 131/58
--- NOTE | 2018-03-03 17:54 | NUR ---
PATIENT A&OX4, ROOM AIR, IV LEFT FOREARM, FLUIDS INFUSSING. UP WITH ASSISTX1, STEADY GAIT. NO C/O PAIN. EXPERIANCING N/V. NG TUBE CLAMPED AT 1000 FOR GI STUDY. STARTED LIS AT 1530 FOR 15MIN DUE TO NAUSEA AND VOMITING. RECIEVED 1500ML OUTPUT VIA NG TUBE. TUBE CLAMPED AT 1600, WAITING FOR FINIAL PICTURES OF GI STUDY AT 1800. AT 1745 PATIENT NG TUBE DISLODGED FROM NARE, PT STATES SHE WAS SNEEZING AND CAME OUT. NEW NG TUBE TO BE PLACED. FLUIDS CHANGED TO INCLUDE K+ DUE TO LOW LEVELS. NO OTHER CONCERNS AT THIS TIME. APPROPRAITE AND COOPORATIVE WITH CARE.
[2018-03-03 20:00] VITALS: BP 134/61
--- NOTE | 2018-03-04 05:33 | NUR ---
PT SLEPT ON AND OFF THIS SHIFT. ASSESSMENT DOCUMENTED. MEDS GIVEN PER E-DEC. IV PATENT, FLUIDS INFUSING. NO REPORTS OF PAIN, PT REPORTED FEELING UNCOMFORTABLE DUE TO DISTENDED ABDOMEN AND REPORTED NAUSEA. NG TUBE PLACEMENT WAS VERIFIED. RADIOLOGIST OKAYED FOR PATIENT TO BE HOOKED UP TO SUCTION FOR A LITTLE BIT, BUT THEN TO RECLAMP HER FOR ANOTHER X-RAY THIS MORNING. 1700ML WAS SUCTIONED THROUGH THE NG TUBE FOR THE 45 MINUTES SHE WAS HOOKED TO SUCTION. PT REPORTED FEELING BETTER. WILL CONTINUE WITH PLAN OF CARE.
[2018-03-04 08:00] VITALS: BP 138/64
--- NOTE | 2018-03-04 11:59 | NUR ---
SW continuing to follow. Pt not ready to dc; SW anticipating possibility of pt needing surgery? SW to continue to follow to assist with safe dc planning.
[2018-03-04 16:31] VITALS: BP 113/48
--- NOTE | 2018-03-04 18:49 | NUR ---
ASSUMED CARE THIS AM, A/O, DENIES PAIN, ASSESSMENT COMPLETE, SEE DOCUMENTATION FOR DETAILS. NG TO LEFT NARE, ALMOST 2 LITERS OF BILIOUS LIQUID SUCTIONED. NO BM THIS SHIFT, CARLISLE PATENT TO DARK YELLOW URINE. PATIENT SCHEDULED FOR EXP. LAP. TOMORROW AFTERNOON. VSS, CALL LIGHT IN REACH, CONT POC.
[2018-03-04 20:05] VITALS: BP 112/37
[2018-03-04 23:38] VITALS: BP 127/45
[2018-03-05 03:55] VITALS: BP 123/55
--- NOTE | 2018-03-05 05:57 | NUR ---
PT SLEPT MOST OF SHIFT. ASSESSMENT DOCUMENTED. MEDS GIVEN PER E-MAR. IV PATENT, FLUIDS INFUSING. PT HEARTRATE WAS VERY IRREGULAR AND TACHY, DR ZARCOFIED, PT PLACED ON TELE MONITOR. TELE MONITOR READING ST WITH PVC'S AND PAC'S. PT REQUESTED SOMETHING TO HELP HER SLEEP, NOTIFED, ORDERS RECIEVED. NO REPORTS OF PAIN OR NAUSEA. WILL CONTINUE WITH PLAN OF CARE.
[2018-03-05 08:00] VITALS: BP 123/55; BP 128/62
[2018-03-05 12:00] VITALS: BP 123/49
[2018-03-05 19:05] VITALS: BP 118/63
--- NOTE | 2018-03-05 19:06 | NUR ---
RESUMED CARE THIS AM. A/O, DENIES PAIN THIS SHIFT, 300 ML OUTPUT FROM NG TUBE, COMPLETE BATH GIVEN. RETURNED FROM OR AFTER EXP. LAPAROTOMY AND SB RESECTION, ALERT, FLAT AFFECT, VSS, MIDLINE ABD DSG IS C/D/I, ON CONT PULSE OX, 2L02NC, NG TO LIS, FAMILY AT BEDSIDE, REPORT GIVEN TO NIGHT NURSE.
[2018-03-05 20:30] VITALS: BP 107/49
[2018-03-06] VITALS: BP 131/74
[2018-03-06 03:50] VITALS: BP 124/45
--- NOTE | 2018-03-06 05:12 | NUR ---
PT SLEPT AT INTERVALS DURING THE NIGHT, IV FLUIDS INFUSED, REMAINS ON 02 AT 2L/NC, CARLISLE IN PLACE, MIDLINE INCISION DRSG C/D/I, PT REPOSITIONED PER REQUEST AND COMFORT, NG TO LIS, SCD'S IN PLACE, CALL LIGHT IN REACH, BED ALARM ON FOR SAFETY, WILL CONTINUE TO MONITOR
[2018-03-06 08:00] VITALS: BP 134/50
[2018-03-06 10:25] LABS: ABSOLUTE LYMPHOCYTES 0.7 thou/uL (0.8-5.3); ABSOLUTE MONOCYTES 0.8 thou/uL (0.0-1.2); ABSOLUTE NEUTROPHILS 7.6 thou/uL (1.6-8.1); BASOPHILS 0.2 %; EOSINOPHILS 0.1 %; HEMATOCRIT 36.8 % (37.0-47.0); HEMOGLOBIN 11.8 gm/dL (12.0-15.0); LYMPHOCYTES 8.1 %; MCH 29.7 pg (26.0-34.0); MCHC 31.9 g/dL (28.0-37.0); MCV 93.2 fL (80.0-100.0); MONOCYTES 8.6 %; MPV 7.7 fl. (7.2-11.1); NUCLEATED RBCS 0 /100WBC; PLATELET COUNT* 271 thou/uL (150-400); RBC 3.95 mil/uL (4.20-5.00); RDW-CV 14.5 % (10.5-14.5); WBC 9.2 thou/uL (4.0-11.0)
[2018-03-06 10:37] LABS: CALCIUM 8.6 mg/dL (8.5-10.1); CREATININE 0.8 mg/dL (0.6-1.3); MAGNESIUM 1.8 mg/dL (1.8-2.4); POTASSIUM 4.4 mmol/L (3.5-5.1)
[2018-03-06 12:16] VITALS: BP 138/38
[2018-03-06 16:01] VITALS: BP 128/55
--- NOTE | 2018-03-06 16:44 | NUR ---
PT UP TO CHAIR MOST OF AFTERNOON. PT STATES WELL CONTROLLED WITH FENTANYL. NG CLAMPED THIS AFTERNOON. NO N/V OR INCREASED PAIN. NO BM OR FLATUS TODAY. PT TOLERATING SMALL SIPS OF CLEAR LIQUIDS. PT GIVEN IS AND INSTRUCTED ON USE. CARLISLE CATH DRAINING CLEAR YELLOW URINE. FAMILY AT BS AND UPDATED ON POC
[2018-03-06 20:05] VITALS: BP 119/71
[2018-03-07] VITALS (7 sets, daily range): BP systolic 122–138; BP diastolic 47–68
[2018-03-07 04:35] LABS: ABSOLUTE EOSINOPHILS 0.1 thou/uL (0.0-0.7); ABSOLUTE LYMPHOCYTES 1.1 thou/uL (0.8-5.3); ABSOLUTE MONOCYTES 1.2 thou/uL (0.0-1.2); ABSOLUTE NEUTROPHILS 7.1 thou/uL (1.6-8.1); BASOPHILS 0.1 %; EOSINOPHILS 1.3 %; HEMATOCRIT 35.5 % (37.0-47.0); HEMOGLOBIN 11.5 gm/dL (12.0-15.0); LYMPHOCYTES 11.7 %; MCH 29.8 pg (26.0-34.0); MCHC 32.3 g/dL (28.0-37.0); MCV 92.2 fL (80.0-100.0); MONOCYTES 12.7 %; MPV 8.1 fl. (7.2-11.1); NUCLEATED RBCS 0 /100WBC; PLATELET COUNT* 272 thou/uL (150-400); POLYS 74.2 %; RBC 3.84 mil/uL (4.20-5.00); RDW-CV 14.3 % (10.5-14.5); WBC 9.5 thou/uL (4.0-11.0)
[2018-03-07 05:05] LABS: CALCIUM 8.4 mg/dL (8.5-10.1); CREATININE 0.6 mg/dL (0.6-1.3); MAGNESIUM 1.8 mg/dL (1.8-2.4); PHOSPHORUS* 2.5 mg/dL (2.5-4.9); POTASSIUM 4.1 mmol/L (3.5-5.1)
--- NOTE | 2018-03-07 05:09 | NUR ---
PT SLEPT AT INTERVALS DURING THE NIGHT, PLEASANT, UP IN CHAIR AT HS FOR AWHILE, THEN ASSISTED BACK IN BED, PT TOLERATED TRANSFER WELL NEEDING LITTLE ASSIST FROM STAFF, SCD'S ON WHILE IN BED, IV FLUIDS INFUSED, PRN PAIN MED ONE TIME, DRSG C/D/I TO MIDLINE INCISION, NG CLAMPED, DENIED NAUSEA TONIGHT, CALL LIGHT IN REACH, BED ALARM ON FOR SAFETY, WILL CONTINUE TO MONITOR
--- NOTE | 2018-03-07 17:08 | NUR ---
PATIENT A&OX4, ROOM AIR, NEW IV RIGHT WRIST 18G FLUIDS INFUSSING. UP WITH ASSISTX1 STAND BY, STEADY GIAT. NG TUBE TO RIGHT NARE DISCONTINUED, PT TOLERATED FINE. CARLISLE CATHETER DISCONTINUED, ADEQUATE OUTPUT. ABLE TO CALL FOR ASSISTANCE AND AMBULATE. C/O ABD DISCOMFORT, DENEIS N/V. MIDLINE ABD INCISION C/D/I. PILLOW AT BEDSIDE FOR SPLINTING. ENCOURAGED TO CONT TO TAKE DEEP BREATHES. STARTED MIRALAX, NO RESULTS AT THIS TIME. ACTIVE BOWEL SOUNDS. NO OTHER CONCERNS AT THIS TIME. APPROPRIATE AND COOPORATIVE WITH CARE.
[2018-03-08 04:00] LABS: HEMATOCRIT 34.9 % (37.0-47.0); HEMOGLOBIN 11.3 gm/dL (12.0-15.0); MCH 29.8 pg (26.0-34.0); MCHC 32.3 g/dL (28.0-37.0); MCV 92.3 fL (80.0-100.0); MPV 7.8 fl. (7.2-11.1); RBC 3.79 mil/uL (4.20-5.00); RDW-CV 14.1 % (10.5-14.5); WBC 9.6 thou/uL (4.0-11.0)
[2018-03-08 04:25] LABS: CALCIUM 8.7 mg/dL (8.5-10.1); CREATININE 0.7 mg/dL (0.6-1.3)
[2018-03-08 05:52] VITALS: BP 134/65
--- NOTE | 2018-03-08 06:03 | NUR ---
PT SLEPT ON AND OFF THIS SHIFT. ASSESSMENT DOCUMENTED. MEDS GIVEN PER E-DEC. PT REPORTED DISCOMFORT, BUT NO PAIN, PT DID NOT WANT ANYTHING FOR PAIN STATING SHE WOULD INFORM NURSE IF SHE CHANGED HER MIND. DRESSING ON ABD C/D/I. TELE MONITOR IN PLACE. WILL CONTINUE WITH PLAN OF CARE.
[2018-03-08 08:00] VITALS: BP 129/65
--- NOTE | 2018-03-08 11:34 | NUR ---
SW called and spoke with Siena at [facility] re: possibility of SNF for pt at dc if needed. Siena explained that pt only used 6 days at SNF and then left AMA. Siena said that they would consider pt but that Pham would visit with pt prior to accepting to SNF to make sure of pt and V expectations. SW to continue to follow to assist with safe dc planning.
[2018-03-08 12:00] VITALS: BP 134/62
[2018-03-08 16:00] VITALS: BP 132/72
--- NOTE | 2018-03-08 18:53 | NUR ---
RESUMED CARE THIS AM. A/O, REPORTS DROWSINESS FROM XANAX, NOW SCHEDULED. SMALL BOWEL MOVEMENT THIS AM, CONT WITH MIRALAX AND DOCUSATE. KEVEN MEDS AND CARES PER CARE PLAN, SLOWLY PROGRESSING TOWARD DISCHARGE GOALS. ABD DSG C/D/I, BED/CHAIR ALARMS ON, CALL LIGHT IN REACH, CONT POC.
[2018-03-08 20:00] VITALS: BP 116/50
[2018-03-09 00:15] VITALS: BP 121/59
[2018-03-09 03:49] VITALS: BP 135/57
[2018-03-09 05:49] LABS: HEMATOCRIT 37.9 % (37.0-47.0); HEMOGLOBIN 12.3 gm/dL (12.0-15.0); MCH 29.7 pg (26.0-34.0); MCHC 32.4 g/dL (28.0-37.0); MCV 91.5 fL (80.0-100.0); MPV 7.6 fl. (7.2-11.1); RBC 4.14 mil/uL (4.20-5.00); RDW-CV 14.1 % (10.5-14.5); WBC 8.6 thou/uL (4.0-11.0)
[2018-03-09 06:12] LABS: CALCIUM 8.5 mg/dL (8.5-10.1); CREATININE 0.8 mg/dL (0.6-1.3); POTASSIUM 4.1 mmol/L (3.5-5.1)
--- NOTE | 2018-03-09 06:15 | NUR ---
PT SLEPT ON AND OFF THIS SHIFT. ASSESSMENT DOCUMENTED. MEDS GIVEN PER E-DEC. NO REPORTS OF PAIN OR NAUSEA. PT HAD SMALL BM THIS SHIFT AND HAS BEEN PASSING FLATULENCE. PT REQUSTING TO WALK AROUND IN [place] TODAY. NEW IV STARTED. WILL CONTINUE WITH PLAN OF CARE.
[2018-03-09 09:36] VITALS: BP 119/58
--- NOTE | 2018-03-09 15:24 | NUR ---
SW faxed referral and dc orders and med list to attn: admissions at [facility]. Pt agreeable to SNF at dc. SW to continue to follow to assist with finalizing safe dc plan.
[2018-03-09 16:00] VITALS: BP 120/62
--- NOTE | 2018-03-09 17:52 | NUR ---
PATIENT HAS BEEN ALERT AND ORIENTED TODAY, VERY PLEASANT. NO COMPLAINTS OF ANY PAIN TODAY. UP WITH STAND BY TO THE BATHROOM OR BEDSIDE COMMODE. VITAL SIGNS HAVE BEEN STABLE ON ROOM AIR. CALL LIGHT IS IN REACH, WILL CONTINUE TO MONITOR.
[2018-03-09 21:12] VITALS: BP 115/71
--- NOTE | 2018-03-09 21:25 | NUR ---
THIS NURSE ASSUMES CARE OF PT AT 1930, ASSESSMENT COMPLETE, PT DENIES PAIN/DISCOMFORT, ASSISTED TO REPOSITION IN BED, PT TAKES HS MEDS WITHOUT DIFFICULTY, REQUEST SLEEP AID TO BE GIVEN LATER IN SHIFT, MIDLINE INCISION DRESSING DRY AND INTACT
[2018-03-10 00:42] VITALS: BP 101/33
[2018-03-10 04:01] VITALS: BP 115/58
[2018-03-10 08:25] VITALS: BP 123/78
[2018-03-10] MEDS ORDERED: DUONEB 2.5-0.5 M3 ML INH (12:28)
[2018-03-10] MEDS ORDERED: BISACODYL SUPP10 MG RECTAL (12:34)
[2018-03-10] MEDS ORDERED: COLACE100 MG PO (12:35)
[2018-03-10] MEDS ORDERED: MIRALAX17 GM PO (12:35)
[2018-03-10 12:45] VITALS: BP 123/78
--- NOTE | 2018-03-10 12:50 | NUR ---
JOSH followed up with Siena in admissions at [facility] who approved for pt to go to [facility] SNF today and scheduled transportation for 1:00 pm. [facility] received final orders and med list by fax from JOSH yesterday. No other dc needs.
--- NOTE | 2018-03-10 13:05 | NUR ---
PATIENT DISCHARGED TO [facility]. REPORT ATTEMPTED X 2 WITH NO ANSWER. COPY OF DISCHARGE PAPERS AND CHART GIVEN TO TRANSPORTER. SON PACKED BELONGINGS. NO IV. PATIENT DENIES ANY NEEDS AT THIS TIME. PATIENT TAKEN BY WHEELCHAIR VAN AT THIS TIME.
--- NOTE | 2018-03-10 13:51 | NUR ---
PT. DISCHARGE TO [facility] PRIOR TO O.T. EVAL. PLEASE ORDER FURTHER O.T. SERVICES IF NEEDED.
--- NOTE | 2018-03-10 17:15 | PATH ---
[address] [address] PATHOLOGY RPT PROCEDURE Name: MADIHA SANDOVAL Room: [address] IN M.R.#: [id number] Admission: 02/27/18 Date of : 34 Discharge: 03/10/18 Report #: [id number] Path Case #: [id number] L[facility] Accession Number: [id number] . 01 Material submitted: . SMALL BOWEL . 01 Clinical history: . Pre-op diagnosis: Small bowel obstruction Post-op diagnosis: Strangulated femoral hernia . 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 (SAHARA:ashley; 03/09/2018) LBQ/03/10/2018 . 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 (SAHARA:pit; 03/10/2018) . 02 Electronically signed: . Geovanny Ramirez MD, Pathologist NPI- [id number] . 01 Gross description: . The specimen is received in formalin, labeled "Madiha Sandoval, small bowel". Received is an unoriented segment of small bowel measuring 7.1 cm in length and ranging in diameter from 1.0 to 2.8 cm. Both margins are stapled closed. The serosal surface is dusky hilario-rivera in appearance. There is a minimal amount of attached mesenteric fat. The specimen is opened along the antimesenteric line to reveal light rivera mucosa with normal mucosal folds. No distinct nodules or lesions are noted grossly. The specimen is submitted representatively as follows: . A1 both margins A2-A3 maintenance representative cross-sections of mucosa. (CAA; 03/08/2018) QAC/QAC . 02 CPT . 380655 Performed at: [address] [id number] [place] [address] PATHOLOGY RPT PROCEDURE Name: MADIHA SANDOVAL Room: [address] IN M.R.#: [id number] Admission: 02/27/18 Date of : 32 Discharge: 03/10/18 Report #: [id number] Path Case #: [id number] MD Mauro Lebron MD Phone: [phone] Performed at: 02 [facility] [address] YAJAIRA Madrigal [id number] MD Geovanny Ramirez MD Phone: [phone]
--- NOTE | 2018-03-20 21:30 | OP ---
[address] [address] OPERATIVE REPORT Name: MADIHA CAMERON Room: [address] IN M.R.#: [id number] Admission: 02/27/18 Attend Phys: Carroll Garnica, Discharge: 03/10/18 Date of : 32 Report #: [id number] THIS REPORT FOR: //name// CC: Jameel Garnica DATE OF SERVICE: 03/05/2018 PREOPERATIVE DIAGNOSIS: Small-bowel obstruction. POSTOPERATIVE DIAGNOSES: 1. Small-bowel obstruction. 2. Strangulated femoral hernia. PROCEDURES: 1. Exploratory laparotomy. 2. Release of strangulated femoral hernia with primary repair of femoral hernia on the right. 3. Small bowel resection with anastomosis. SURGEON: Joseline Mujica MD. SENIOR PENSIONS ADMINISTRATOR: 1. Terrell Jenkins DO. 2. Marco Green DO. ESTIMATED BLOOD LOSS: 10 mL. COMPLICATIONS: None. FINDINGS: Strangulated small bowel within a femoral hernia on the right. ANESTHESIA: GET. DESCRIPTION OF PROCEDURE: Fully informed consent obtained preoperatively after full discussion of risks, benefits, alternatives with family, the patient understood risk of bleeding, infection, reoperation, anastomotic leak, temporary or permanent stoma, injury to surrounding structures, catastrophic events up to and including cardiopulmonary failure and . The patient and her family, son and daughter understood and wished to proceed. The patient was taken to the operating room, prepped and draped in standard sterile fashion. Timeout was performed with all in agreement. We began with midline laparotomy, ran the small bowel from the ligament of Treitz all the way to the cecum. In the distal small bowel, there was noted to be a clear transition point going into an incarcerated femoral hernia. I was unable to reduce from [place] [address] OPERATIVE REPORT Name: MADIHA CAMERON Room: [address] IN [facility].#: [id number] Admission: 02/27/18 Attend Phys: Carroll Garnica, Discharge: 03/10/18 Date of : 32 Report #: [id number] an incision above the mass in the right groin, dissected down, identified inferior to the inguinal ligament through the femoral canal, a femoral hernia and a piece of small bowel. I then pulled skin up and made an incision for the external oblique aponeurosis with very slight partial division of the inguinal ligament. I was able to reduce the small bowel into the abdomen. Small bowel itself appeared strangulated at this point, approximately 4 or 5 cm portion of small bowel. Therefore, I chose to proceed with primary repair of the inguinal hernia. Maxwell repair performed. I used 0 Ethibond to suture the inguinal ligament down to the Terrence's ligament with multiple interrupted stitches. This comfortably coapted that space. External oblique aponeurosis was brought together with 0 Ethibond. A counter incision was made on the rectus to take tension off this area. A 3-0 Vicryl used to close Jacinta's and deep dermis, 4-0 Monocryl to close the skin. Dermabond applied. Next, we turned our attention to the small bowel. Mesentery was taken with clamps and 0 silk ties. I fired blue load RUSSELL staplers across to transect the bowel. Small bowel was sent to pathology. It was lined up with 0 3-0 silk at either end. A small enterotomy was made between both sides, mild spillage immediately suctioned. I fired a blue load RUSSELL stapler to create a common channel. A 3-0 Vicryl was used to close the common channel and 3-0 silk used to oversew this. Prior to placing 3-0 silk, I milked contents past the anastomosis from proximal to distal with excellent distention at the anastomosis and no evidence of any spillage. Color appeared good and viable at this time, clearly different from the devascularized bowel that was removed. It was replaced in the abdomen. We irrigated copiously with saline. Fascia closed with #1 PDS. Finger sweep was performed to make sure there were no entrapped contents. I irrigated the wound more and placed murphy and then dressing. Sponge, needle, instrument counts were correct. The patient tolerated it well. <ELECTRONICALLY SIGNED> By: Joseline Mujica MD 03/20/18 2130 1717 1744Dclement Mujica MD /nt
[2018-03-29] MEDS ORDERED: TYLENOL325 MG PO (00:50)
[2018-03-29] MEDS ORDERED: AMLODIPINE BESYL5 M1 PO (09:18)
[2018-03-29] MEDS ORDERED: PROTONIX 20 MG20 M1 PO (09:18)
[2018-03-29] MEDS ORDERED: METOPROLOL SUCC25 M1 PO (09:18)
[2018-03-29] MEDS ORDERED: MIRALAX17 GM PO (10:54)
[2018-04-13] MEDS ORDERED: KEFLEX250 MG (19:12)
== END 2018-03-10 13:05 | DRG 329 ==
LOC: M.ERS 19:06 → M.3W 23:19 → M.TBA-ER 23:19 → M.3W 23:57
PROVIDERS: Emergency Medicine; Surgery; ADMIT Family Medicine
PROC: 0DT80ZZ Resection of Small Intestine, Open Approach (ICD-10-PCS; principal; 2018-03-05)
PROC: 0YQ70ZZ Repair Right Femoral Region, Open Approach (ICD-10-PCS; principal; 2018-03-05)
DX: K56.600 Partial intestinal obstruction, unspecified as to cause (principal); K41.40 Unilateral femoral hernia, with gangrene, not specified as recurrent; E43 Unspecified severe protein-calorie malnutrition; Z68.1 Body mass index [BMI] 19.9 or less, adult; R65.10 Systemic inflammatory response syndrome (SIRS) of non-infectious origin without acute organ dysfunction; I10 Essential (primary) hypertension; J44.9 Chronic obstructive pulmonary disease, unspecified; K21.9 Gastro-esophageal reflux disease without esophagitis; F41.9 Anxiety disorder, unspecified; M19.90 Unspecified osteoarthritis, unspecified site; E86.0 Dehydration; Z96.643 Presence of artificial hip joint, bilateral; Z90.710 Acquired absence of both cervix and uterus; Z98.890 Other specified postprocedural states; Z79.2 Long term (current) use of antibiotics; Z79.899 Other long term (current) drug therapy

== ENCOUNTER 2018-03-13 10:40 | Inpatient (IN) | payer MEDICARE ==
[~2018-03-13] VITALS: Ht 160 cm; Wt 44.9 kg
[~2018-03-13 10:40] MED LIST changes: +BISACODYL SUPP10 MG RECTAL; +COLACE100 MG PO; +MIRALAX17 GM PO
[2018-03-13 10:41] VITALS: BP 114/50
[2018-03-13] MEDS ORDERED: DUONEB 2.5-0.5 M3 ML INH (10:48)
[2018-03-13] MEDS ORDERED: XANAX 0.5 MG0.5 M1 PO (10:49)
[2018-03-13 11:00] LABS: NUCLEATED RBCS 0 /100WBC
[2018-03-13 11:02] LABS: HEMATOCRIT 35.4 % (37.0-47.0); HEMOGLOBIN 11.3 gm/dL (12.0-15.0); MCH 29.6 pg (26.0-34.0); MCV 92.4 fL (80.0-100.0); MPV 7.4 fl. (7.2-11.1); PLATELET COUNT* 523 thou/uL (150-400); RBC 3.83 mil/uL (4.20-5.00); RDW-CV 14.6 % (10.5-14.5); WBC 28.9 thou/uL (4.0-11.0)
[2018-03-13 11:09] LABS: ANION GAP 7 mmol/L (7-16); BUN 47 mg/dL (7-18); CALCIUM 8.5 mg/dL (8.5-10.1); CHLORIDE 101 mmol/L (98-107); CO2 28 mmol/L (21-32); CREATININE 0.9 mg/dL (0.6-1.3); GLUCOSE 131 mg/dL (70-99); POTASSIUM 4.7 mmol/L (3.5-5.1); SODIUM 136 mmol/L (136-145)
[2018-03-13 11:16] LABS: ALBUMIN 2.3 g/dL (3.4-5.0); ALKALINE PHOSPHATASE 63 U/L (46-116); LIPASE 71 U/L (73-393); SGOT 20 U/L (15-37); SGPT 16 U/L (30-65); TOTAL BILIRUBIN 0.4 mg/dL (<0.1-1.0); TROPONIN-I LEVEL <0.06 ng/mL (<0.06)
[2018-03-13 11:37] LABS: URINE BLOOD NEGATIVE (Negative); URINE CLARITY CLEAR; URINE COLOR YELLOW; URINE GLUCOSE-RANDOM NEGATIVE (Negative); URINE KETONES TRACE (Negative); URINE LEUKOCYTES-REFLEX NEGATIVE (Negative); URINE NITRITE-REFLEX NEGATIVE (Negative); URINE PROTEIN TRACE (Negative); URINE SPECIFIC GRAVITY >= 1.030 (1.005-1.030); URINE UROBILINOGEN 0.2 E.U./dl (0.2-1.0)
[2018-03-13 11:38] LABS: ABSOLUTE MONOCYTES 0.6 thou/uL (0.0-1.2); ABSOLUTE NEUTROPHILS 26.3 thou/uL (1.6-8.1)
[2018-03-13 11:39] LABS: PLATELET ESTIMATE INCREASED
[2018-03-13 11:45] LABS: ICTOTEST (BILI CONFIRMATORY) Negative (Negative); URINE BILIRUBIN 2+ (Negative)
[2018-03-13 11:48] LABS: HYALINE CASTS 0-3 Few /LPF (None Seen); MUCUS 0-3 Light strn/LPF (None Seen); SQUAMOUS 0-3 Few /LPF (0-3)
[2018-03-13 11:49] LABS: AMORPHOUS URATES Few /LPF (None Seen); BACTERIA-REFLEX None Seen /HPF (None Seen); URINE RBC 0-2 Rare /HPF (0-2); URINE WBC-REFLEX 0-5 Rare /HPF (0-5)
[2018-03-13 14:00] VITALS: BP 141/48
[2018-03-13 15:27] VITALS: BP 134/55
[2018-03-13 20:00] VITALS: BP 113/44
[2018-03-14] VITALS: BP 100/46
[2018-03-14 04:00] VITALS: BP 101/54
[2018-03-14 05:04] LABS: ABSOLUTE EOSINOPHILS 0.1 thou/uL (0.0-0.7); ABSOLUTE LYMPHOCYTES 1.2 thou/uL (0.8-5.3); ABSOLUTE MONOCYTES 1.2 thou/uL (0.0-1.2); ABSOLUTE NEUTROPHILS 18.2 thou/uL (1.6-8.1); BASOPHILS 0.1 %; EOSINOPHILS 0.5 %; HEMATOCRIT 30.9 % (37.0-47.0); HEMOGLOBIN 9.8 gm/dL (12.0-15.0); MCH 29.9 pg (26.0-34.0); MCHC 31.8 g/dL (28.0-37.0); MCV 93.8 fL (80.0-100.0); MONOCYTES 5.6 %; MPV 7.6 fl. (7.2-11.1); NUCLEATED RBCS 0 /100WBC; POLYS 87.8 %; RBC 3.29 mil/uL (4.20-5.00); RDW-CV 14.6 % (10.5-14.5); WBC 20.7 thou/uL (4.0-11.0)
[2018-03-14 05:13] LABS: PLATELET COUNT* 444 thou/uL (150-400)
[2018-03-14 05:21] LABS: CALCIUM 7.7 mg/dL (8.5-10.1); CREATININE 0.6 mg/dL (0.6-1.3); MAGNESIUM 1.9 mg/dL (1.8-2.4); PHOSPHORUS* 2.3 mg/dL (2.5-4.9); POTASSIUM 3.9 mmol/L (3.5-5.1)
[2018-03-14 08:00] VITALS: BP 121/48
[2018-03-14 12:45] VITALS: BP 122/50
--- NOTE | 2018-03-14 14:29 | EKG ---
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: Carter DENNEY : 1930 Requested By: Xochilt James Order Number: [id number] MD: Sudarshan Root Measurements Intervals [place] Rate: 94 P: 48 [place]: 143 QRS: 27 QRSD: 86 T: 78 QT: 367 QTc: 459 Interpretive Statements Sinus rhythm Atrial premature complexes Left atrial enlargement Nonspecific T abnormalities, lateral leads Compared to ECG 02/27/2018 20:15:02 T-wave abnormality now present Electronically Signed On 03-14-2018 14:28:48 CDT by Sudarshan Root [email or web address] <ELECTRONICALLY SIGNED> By: Sudarshan Root MD, FAC 03/14/18 1428 1102 1102 Sudarshan Root MD, [facility] /EPI
--- NOTE | 2018-03-14 14:33 | EKG ---
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 <ELECTRONICALLY SIGNED> By: Sudarshan Root MD, FACC 03/14/18 1433 0837 0837 Sudarshan Root MD, FAC /EPI
[2018-03-14 16:00] VITALS: BP 106/44
[2018-03-15 00:21] VITALS: BP 129/45
[2018-03-15 04:43] VITALS: BP 141/56
[2018-03-15 05:26] LABS: ABSOLUTE EOSINOPHILS 0.1 thou/uL (0.0-0.7); BASOPHILS 0.2 %; EOSINOPHILS 0.7 %; HEMOGLOBIN 9.9 gm/dL (12.0-15.0); LYMPHOCYTES 6.4 %; MCH 30.1 pg (26.0-34.0); MCHC 31.9 g/dL (28.0-37.0); MCV 94.3 fL (80.0-100.0); MONOCYTES 6.2 %; MPV 7.4 fl. (7.2-11.1); NUCLEATED RBCS 0 /100WBC; PLATELET COUNT* 427 thou/uL (150-400); POLYS 86.5 %; RBC 3.29 mil/uL (4.20-5.00); RDW-CV 14.7 % (10.5-14.5); WBC 16.1 thou/uL (4.0-11.0)
[2018-03-15 05:30] LABS: CALCIUM 8.1 mg/dL (8.5-10.1); CREATININE 0.5 mg/dL (0.6-1.3); PHOSPHORUS* 2.2 mg/dL (2.5-4.9); POTASSIUM 3.7 mmol/L (3.5-5.1)
[2018-03-15 08:30] VITALS: BP 139/61
[2018-03-15 12:34] VITALS: BP 121/46
[2018-03-15 15:56] VITALS: BP 135/47
[2018-03-15 20:00] VITALS: BP 128/59
[2018-03-16] VITALS: BP 143/58
[2018-03-16 04:38] VITALS: BP 156/57
[2018-03-16 08:00] VITALS: BP 133/52
[2018-03-16 12:20] VITALS: BP 138/48
[2018-03-16 15:48] VITALS: BP 143/67
[2018-03-16 20:00] VITALS: BP 136/62
[2018-03-17] VITALS: BP 136/65
[2018-03-17 03:57] VITALS: BP 127/63
[2018-03-17 05:11] LABS: HEMOGLOBIN 10.8 gm/dL (12.0-15.0); MCH 29.7 pg (26.0-34.0); MCHC 31.8 g/dL (28.0-37.0); MCV 93.5 fL (80.0-100.0); MPV 7.5 fl. (7.2-11.1); RBC 3.63 mil/uL (4.20-5.00); RDW-CV 14.3 % (10.5-14.5); WBC 14.4 thou/uL (4.0-11.0)
[2018-03-17 05:35] LABS: CALCIUM 8.2 mg/dL (8.5-10.1); CREATININE 0.4 mg/dL (0.6-1.3); POTASSIUM 3.1 mmol/L (3.5-5.1)
[2018-03-17 07:30] VITALS: BP 131/54
--- NOTE | 2018-03-17 10:39 | EKG ---
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: ELDA : 1930 Requested By: Francisco Torres Order Number: [id number] Michele MD: Dima Veras Measurements Intervals [place] Rate: 125 P: 66 [place]: 134 QRS: 41 QRSD: 87 T: 71 QT: 341 QTc: 492 Interpretive Statements Sinus tachycardia frequent and consecutive pac's Abnormal R-wave progression, early transition Compared to ECG 03/14/2018 08:37:42 frequent and consecutive pac's now present Prolonged QT interval no longer present Electronically Signed On 03-17-2018 10:39:16 CDT by Dima Veras [email or web address] <ELECTRONICALLY SIGNED> By: Dima Veras MD, [facility] 03/17/18 1039 2213 2213 Dima Veras MD, [facility] /EPI
[2018-03-17 12:00] VITALS: BP 124/74
--- NOTE | 2018-03-17 12:51 | CON ---
[address] [address] CONSULTATION Name: MADIHA CAMERON Room: [address] IN M.R.#: [id number] Admission: 03/13/18 Attend Phys: Carroll Garnica, Discharge: Date of : 32 Report #: [id number] THIS REPORT FOR: //name// CC: Jameel Garnica DATE OF SERVICE: 03/17/2018 TYPE OF REPORT: Cardiology consultation. HISTORY OF PRESENT ILLNESS: The patient is an 88-year-old single white female who I was asked to see in the hospital today after she was noted to have an irregular heartbeat. The history is obtained from the patient as well as some old records. There are no family members available. She has had several hospitalizations here at [facility] in the past. She was actually here in November with partial small-bowel obstruction, treated conservatively. However, she presented to the Emergency Room last week with abdominal discomfort. She was found to have evidence of a small-bowel obstruction. She was found to have a strangulated hernia. She was taken to the Operating Room and underwent surgery. She tolerated the procedure well. She is now recovering. Last night on the monitor, she was noted to have frequent PACs. The nurse felt it was consistent with atrial fibrillation. She called the attending physician who recommended Cardiology consultation. Without seeing the patient, the patient was actually started on IV diltiazem. I was asked to see her today for further evaluation and treatment. She states that several years ago, she was having flutter in her chest and was given metoprolol by her mathematical engineering technician over at [facility]. She has never required cardioversion or been anticoagulated. She does have occasional skipped heartbeat but no prolonged palpitations, lightheadedness or syncope. She denies a history of chest pain or shortness of breath. She does have occasional edema. PAST MEDICAL HISTORY: Significant for partial lobectomy of her lung when she was in her 20s. She has had a previous tonsillectomy, hysterectomy, 2 hip surgeries, cholecystectomy and hypertension. No history of diabetes or hyperlipidemia. MEDICATIONS: Include Xanax, amlodipine, nebulizer, metoprolol and omeprazole. ALLERGIES: She has no known drug allergies. MEDICATIONS: Currently, not on any oral medications. FAMILY HISTORY: Negative for heart disease. SOCIAL HISTORY: She has been twice, [place] [address] CONSULTATION Name: MADIHA CAMERON Room: [address]#: [id number] Admission: 03/13/18 Attend Phys: Carroll Garnica, Discharge: Date of : 32 Report #: [id number] She stays active working in the yard. No smoking or alcohol abuse. REVIEW OF SYSTEMS: She has had no history of stroke. She has asthma. No history of peptic ulcer disease, liver disease, kidney disease, cancer, psychiatric illness or chronic skin condition. PHYSICAL EXAMINATION: GENERAL: Revealed elderly, frail-appearing female who appeared in no distress. VITAL SIGNS: Showed a blood pressure of 130/60 and pulse is 100. She was afebrile. HEENT: She was anicteric. Conjunctivae are dry. NECK: Veins do not appear distended. CHEST: Revealed crackles in the bases. CARDIOVASCULAR: Regular rate and rhythm. Occasional prematurity, grade 2 systolic ejection murmur. ABDOMEN: Had a dressing. It is soft. EXTREMITIES: Had no pitting edema. Dorsalis pedis pulse 1+ bilaterally. SKIN: Cool and dry. NEUROLOGICAL: Nonfocal. RADIOLOGICAL DATA: ECG on admission last week showed a sinus rhythm, frequent PACs. There are nonspecific T-wave changes. On the monitor, she appears to have frequent PACs and occasional PVC. She did have short runs of atrial tachycardia, lasting up to 4 beats. Some were aberrantly conducted. She has an early transition noted on her EKG. Her workup, she actually had an echocardiogram done in November this year that showed ejection fraction 60%, left atrial enlargement, mild aortic and mitral regurgitation. Her x-rays include a portable chest x-ray that was done February 27 that showed her NG tube, elevated left hemidiaphragm and left lower lobe atelectasis. LABORATORY DATA: Her lab work, sodium 142, potassium 3.1, creatinine 0.4. Remaining liver function studies appeared normal. Albumin 2.3. Troponin 0.06. BNP 755. White blood cell count 14.4 and hematocrit 34.0. IMPRESSION AND RECOMMENDATIONS: 1. Frequent premature atrial contractions. Normal ejection fraction. I would check thyroid function studies. At this time, I would resume her beta micheline. 2. Hypertension. At this time, I would resume her calcium micheline. 3. Status post laparotomy for small bowel obstruction. 4. Previous lobectomy for lung disease when she was in her 20s. <ELECTRONICALLY SIGNED> By: Dima Veras MD, [facility] 03/17/18 1251 0907 1156Daeulalia Veras MD, FACC /nt
[2018-03-17 15:38] LABS: CALCIUM 8.1 mg/dL (8.5-10.1); CREATININE 0.5 mg/dL (0.6-1.3); MAGNESIUM 1.7 mg/dL (1.8-2.4); POTASSIUM 3.2 mmol/L (3.5-5.1)
[2018-03-17 16:00] VITALS: BP 134/59
[2018-03-17 20:00] VITALS: BP 131/83
[2018-03-18] VITALS: BP 123/55
[2018-03-18 04:00] VITALS: BP 126/59
[2018-03-18 07:30] VITALS: BP 135/40
[2018-03-18 11:00] VITALS: BP 106/59
--- NOTE | 2018-03-18 14:05 | EKG ---
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: : 1930 Requested By: Dima Veras Order Number: [id number] Reading MD: Sudarshan Root Measurements Intervals [place] Rate: 92 P: 43 [place]: 142 QRS: 37 QRSD: 93 T: 52 QT: 371 QTc: 459 Interpretive Statements Sinus tachycardia Atrial premature complexes Abnormal R-wave progression, early transition Consider left ventricular hypertrophy Compared to ECG 03/16/2018 22:13:57 Atrial premature complex(es) now present Electronically Signed On 03-18-2018 14:04:59 CDT by Sudarshan Root [email or web address] <ELECTRONICALLY SIGNED> By: Sudarshan Root MD, FACC 03/18/18 1404 0844 0844 Sudarshan Root MD, [facility] /EPI
[2018-03-18 15:49] VITALS: BP 121/50
[2018-03-18 20:00] VITALS: BP 113/51
[2018-03-19] VITALS: BP 146/74
[2018-03-19 04:00] VITALS: BP 127/67
[2018-03-19 08:05] VITALS: BP 128/52
[2018-03-19] MEDS ORDERED: AUGMENTIN 875-1 EACH PO (11:10)
[2018-03-19] MEDS ORDERED: HYDROCODONE-AP1 EAC6 PO (11:12)
[2018-03-19] MEDS ORDERED: PROTONIX 20 MG20 M1 PO (11:14)
[2018-03-19 11:18] VITALS: BP 128/52
[2018-03-19 11:51] VITALS: BP 107/48
[2018-03-29] MEDS ORDERED: TYLENOL325 MG PO (00:50)
[2018-03-29] MEDS ORDERED: AMLODIPINE BESYL5 M1 PO (09:18)
[2018-03-29] MEDS ORDERED: METOPROLOL SUCC25 M1 PO (09:18)
[2018-03-29] MEDS ORDERED: PROTONIX 20 MG20 M1 PO (09:18)
[2018-03-29] MEDS ORDERED: MIRALAX17 GM PO (10:54)
[2018-04-13] MEDS ORDERED: KEFLEX250 MG (19:12)
== END 2018-03-19 16:00 | DRG 862 ==
LOC: M.ERS 10:40 → M.2W 12:42 → M.TBA-ER 12:42 → M.2W 14:32
PROVIDERS: Internal Medicine; Physician Assistant; Surgery; ADMIT Family Medicine
DX: T81.4XXA Infection following a procedure, initial encounter (principal); A41.9 Sepsis, unspecified organism; N17.0 Acute kidney failure with tubular necrosis; E43 Unspecified severe protein-calorie malnutrition; N39.0 Urinary tract infection, site not specified; K56.7 Ileus, unspecified; J98.11 Atelectasis; Z68.1 Body mass index [BMI] 19.9 or less, adult; I10 Essential (primary) hypertension; E86.0 Dehydration; D64.9 Anemia, unspecified; E87.6 Hypokalemia; K21.9 Gastro-esophageal reflux disease without esophagitis; F41.9 Anxiety disorder, unspecified; M19.90 Unspecified osteoarthritis, unspecified site; E83.42 Hypomagnesemia; T81.89XA Other complications of procedures, not elsewhere classified, initial encounter; Z96.643 Presence of artificial hip joint, bilateral; Y83.8 Other surgical procedures as the cause of abnormal reaction of the patient, or of later complication, without mention of misadventure at the time of the procedure; Z90.710 Acquired absence of both cervix and uterus; Z98.890 Other specified postprocedural states; Z90.49 Acquired absence of other specified parts of digestive tract; Y92.89 Other specified places as the place of occurrence of the external cause

== ENCOUNTER 2018-04-13 18:43 | Inpatient (IN) | payer MEDICARE ==
[~2018-04-13] VITALS: Ht 160 cm; Wt 44.0 kg
[~2018-04-13 18:43] MED LIST changes: +AMLODIPINE BESYL5 M1 PO; +AUGMENTIN 875-1 EACH PO; +METOPROLOL SUCC25 M1 PO; +PROTONIX 20 MG20 M1 PO; +TYLENOL325 MG PO; +XANAX 0.5 MG0.5 M1 PO
[2018-04-13 19:07] VITALS: BP 131/59
[2018-04-13] MEDS ORDERED: KEFLEX250 MG ×2 (19:12)
[2018-04-13 19:46] LABS: ABSOLUTE EOSINOPHILS 0.2 thou/uL (0.0-0.7); ABSOLUTE MONOCYTES 0.9 thou/uL (0.0-1.2); ABSOLUTE NEUTROPHILS 3.9 thou/uL (1.6-8.1); BASOPHILS 0.6 %; EOSINOPHILS 3.1 %; HEMATOCRIT 33.6 % (37.0-47.0); HEMOGLOBIN 10.8 gm/dL (12.0-15.0); MCH 29.8 pg (26.0-34.0); MCHC 32.3 g/dL (28.0-37.0); MCV 92.5 fL (80.0-100.0); MONOCYTES 12.8 %; MPV 7.6 fl. (7.2-11.1); NUCLEATED RBCS 0 /100WBC; PLATELET COUNT* 332 thou/uL (150-400); POLYS 55.5 %; RBC 3.63 mil/uL (4.20-5.00); RDW-CV 15.3 % (10.5-14.5)
[2018-04-13 19:55] LABS: CALCIUM 9.4 mg/dL (8.5-10.1); CREATININE 0.9 mg/dL (0.6-1.3); POTASSIUM 4.1 mmol/L (3.5-5.1)
[2018-04-13 19:59] LABS: ALBUMIN 3.2 g/dL (3.4-5.0); TOTAL BILIRUBIN 0.3 mg/dL (<0.1-1.0); TOTAL PROTEIN 7.5 g/dL (6.4-8.2)
[2018-04-13 21:00] VITALS: BP 154/73
[2018-04-13 21:17] VITALS: BP 119/53
[2018-04-14 06:16] LABS: HEMATOCRIT 32.9 % (37.0-47.0); HEMOGLOBIN 10.6 gm/dL (12.0-15.0); MCH 29.9 pg (26.0-34.0); MCHC 32.1 g/dL (28.0-37.0); MCV 93.1 fL (80.0-100.0); MPV 7.5 fl. (7.2-11.1); RBC 3.54 mil/uL (4.20-5.00); RDW-CV 15.3 % (10.5-14.5); WBC 6.3 thou/uL (4.0-11.0)
[2018-04-14 06:36] LABS: ALBUMIN 2.8 g/dL (3.4-5.0); CALCIUM 9.2 mg/dL (8.5-10.1); CREATININE 0.8 mg/dL (0.6-1.3); POTASSIUM 4.3 mmol/L (3.5-5.1); TOTAL BILIRUBIN 0.3 mg/dL (<0.1-1.0); TOTAL PROTEIN 6.1 g/dL (6.4-8.2)
[2018-04-14 08:25] VITALS: BP 146/47
--- NOTE | 2018-04-14 15:11 | NUR ---
PT.RESTING QUIETLY IN BED. IS ALERT AND ORIENTED. SHE SAID SHE LIVES ALONE. DAUGHTER IS SUPPORTIVE BUT WORKS.SON,, HELPS HER THE MOST. SHE SAID SHE WAS DISCHARED FROM OUR REHAB UNIT LAST PART OF MARCH. SHE IS CURRENTLY ON SERVICE WITH [facility]. CM SPOKE WITH [facility] [phone]. SHE SAID THEY WOULD RESUME HH WHEN PT.DISCHARGED FROM HOSPITAL. PT.USES A CANE AT TIMES. SHE IS INEPENDENT. SHE STILL DRIVES SHORT DISTANCES. COOKS, BATHES,ETC. [facility] WILL FOLLOW FOR DISCHARGE.
[2018-04-14] MEDS ORDERED: ALBUTEROL2.5 MG/31 INH (16:25)
[2018-04-14 17:41] VITALS: BP 140/77
--- NOTE | 2018-04-14 17:44 | NUR ---
PATIENT RESTING IN BED. PATIEN TIS UP AD LORENZO IN ROOM. PATIENT WAS UP IN CHAIR THIS AFTERNOON WITH LEGS ELEVATED. PATIENT HAS COMPLAINTS OF PAIN WITH TOUCH TO LLE, TYLENOL GIVEN WITH ADEQUATE RELIEF. PATIENT REQUESTING BREATHIN G TREATMENTS, DR NOTIFIED AND ORDERS RECEIVED. TUBIGRIP TO LLE PER DR SKELTON. PATIENT HAS EXCELLENT APPETITE. PATIENT DENIES ANY NEEDS AT THIS TIME. CALL LIGHT WITHIN REACH. WILL CONTINUE TO MONITOR.
[2018-04-15] VITALS: BP 126/50
[2018-04-15 03:58] LABS: ABSOLUTE EOSINOPHILS 0.2 thou/uL (0.0-0.7); ABSOLUTE LYMPHOCYTES 2.3 thou/uL (0.8-5.3); ABSOLUTE MONOCYTES 0.7 thou/uL (0.0-1.2); ABSOLUTE NEUTROPHILS 3.5 thou/uL (1.6-8.1); BASOPHILS 0.6 %; EOSINOPHILS 3.1 %; HEMATOCRIT 31.2 % (37.0-47.0); HEMOGLOBIN 10.1 gm/dL (12.0-15.0); MCH 29.8 pg (26.0-34.0); MCHC 32.2 g/dL (28.0-37.0); MCV 92.6 fL (80.0-100.0); MONOCYTES 10.1 %; MPV 7.1 fl. (7.2-11.1); NUCLEATED RBCS 0 /100WBC; PLATELET COUNT* 311 thou/uL (150-400); POLYS 52.2 %; RBC 3.37 mil/uL (4.20-5.00); RDW-CV 15.3 % (10.5-14.5); WBC 6.8 thou/uL (4.0-11.0)
[2018-04-15 04:25] LABS: CALCIUM 8.7 mg/dL (8.5-10.1); CREATININE 0.8 mg/dL (0.6-1.3); POTASSIUM 3.8 mmol/L (3.5-5.1)
--- NOTE | 2018-04-15 06:17 | NUR ---
PATIENT SLEPT WELL DURING THIS SHIFT. PT UP AD LORENZO IN ROOM. PT WITH ANTIBIOTICS INFUSING PER DR ORDER THEN SALINE LOCKED. PT DENIES PAIN. PT WITH TUBIGRIP ON RT LOWER EXTREMITY. EDEMA IN RLE AT 1+, NO PITTING NOTED NOTED ON ADMISSION. FREQUENTLY USED ITEMS AND CALL LIGHT WITHIN REACH. WILL CONTINUE TO MONITOR.
[2018-04-15 08:20] VITALS: BP 113/41
[2018-04-15 11:19] VITALS: BP 113/41
--- NOTE | 2018-04-15 12:29 | CON ---
[address] [address] CONSULTATION Name: MADIHA CAMERON Room: [address] IN .R.#: [id number] Admission: 04/13/18 Attend Phys: Mary Powell Discharge: Date of : 32 Report #: [id number] THIS REPORT FOR: //name// CC: Jameel Torres DATE OF SERVICE: 04/14/2018 INFECTIOUS DISEASE CONSULTATION ATTENDING PHYSICIAN: Jerzy Romero M.D. REASON FOR EVALUATION: Right lower extremity inflammatory eruption, likely a component of cellulitis. HISTORY OF PRESENT ILLNESS: Chart reviewed, the patient examined. This is an 88-year-old who has actually had extended hospitalization recently secondary to a complicated infection. She had been discharged home a couple of weeks. She sustained injury as a result of striking her right prado on a paving stone outside in her yard. This happened roughly 6 days prior to admission, did develop laceration; however, did not bleed. It is notable she has underlying venous stasis insufficiency due to increasing inflammation. She was reevaluated and subsequently admitted. Plain films did not show any bony abnormalities. Blood cultures are sterile thus far. She is empirically dosed with vancomycin and ceftriaxone. ALLERGIES: None known. MEDICATIONS: Include enoxaparin, ipratropium and albuterol inhaler, vancomycin, amlodipine, metoprolol, pantoprazole, ondansetron. PAST MEDICAL HISTORY: Previous left lung lobectomy, previous history of bowel obstruction, hysterectomy, left hip replacement and right hip replacement. SOCIAL HISTORY: Nonsmoker, no ethanol. FAMILY HISTORY: Noncontributory. REVIEW OF SYSTEMS: Denies any significant pulmonary or gastrointestinal related complaints. She has not had fevers. PHYSICAL EXAMINATION: GENERAL: She appears chronically ill, undernourished. She is pleasant, cooperative. She is not overtly toxic. She is in mild distress. VITAL SIGNS: Temperature 97.6, pulse 70, respirations 16, blood pressure 146/47. [place] [address] CONSULTATION Name: MATYELADIOMADIHA J Room: [address]#: [id number] Admission: 04/13/18 Attend Phys: Mary Powell Discharge: Date of : 32 Report #: [id number] SKIN: Warm, dry. HEENT: Unremarkable. NECK: Supple. LUNGS: Generally clear. HEART: Regular. I do not appreciate a murmur. ABDOMEN: Soft, nontender, nondistended. EXTREMITIES: On the right lower extremity mid pretibial site, there is an area of skin necrosis. She has generalized dermopathy consistent with chronic venous stasis insufficiency. She does have decent peripheral pulses. GENITOURINARY: Deferred. RECTAL: Deferred. LABORATORY DATA: Blood cultures sterile thus far. Electrolytes: Sodium 143, potassium 4.3, chloride 110, bicarbonate is 33, anion gap of 0, BUN and creatinine 17 and 0.8. LFTs unremarkable. Albumin of 2.8. Total protein 6.1, estimated GFR of 68. CBC: White count of 6.3, H and H 10.6 and 32.9 and platelets of 299. Sed rate 42, CRP of 19.4. Lactic acid 0.9. ASSESSMENT: Right lower extremity skin and soft tissue infection. Component of infection, I think she has underlying venous stasis insufficiency as well. We will continue the vancomycin presuming a Staph or Strep etiology. We will encourage elevation, add single layer Tubigrip as well. We will see how she does over the next 24-48 hours, suspect we can get her out of the hospital in a reasonable period of time. <ELECTRONICALLY SIGNED> By: Feroz Loja MD 04/15/18 1229 1738 2218Joyoli Loja MD /nt
[2018-04-15] MEDS ORDERED: MINOCIN100 MG PO (14:19)
--- NOTE | 2018-04-15 14:28 | NUR ---
PT.TO DISCHARGE TODAY. NOTIFIED [facility]. FAXED OVER H&P,ORDERS AND MED LIST TO HER AT [phone]. INFORMATION PUT ON DISCHARGE INSTRUCTIONS.
--- NOTE | 2018-04-15 14:40 | NUR ---
PATIENT DISCHARGED TO HOME WITH HOME HEALTH. DISCHARGE PAPERS REVIEWED AND SIGNED. PRESCRIPTION AND INFORMATION SHEETS GIVEN. IV REMOVED. WOUND DRESSED AND PICTURE IN CHART. PATIENT DENIES ANY FURTHER NEEDS. PATIENT TAKEN BY WHEELCHAIR TO EXIT. LEFT WITH SON.
== END 2018-04-15 14:40 | disposition home health service (06) | DRG 603 ==
LOC: M.ERS 18:43 → M.ORTHSURG 20:23 → M.TBA-ER 20:23 → M.ORTHSURG 21:26
PROVIDERS: Emergency Medicine; Internal Medicine; ADMIT Internal Medicine
DX: L03.115 Cellulitis of right lower limb (principal); E44.1 Mild protein-calorie malnutrition; Z96.643 Presence of artificial hip joint, bilateral; E86.0 Dehydration; D64.9 Anemia, unspecified; Z79.899 Other long term (current) drug therapy; Z90.710 Acquired absence of both cervix and uterus

== ENCOUNTER → 2018-04-26 | Outpatient (CLI) | payer MEDICARE ==
[~2018-04-26] MED LIST changes: +ALBUTEROL2.5 MG/31 INH; +AMBIEN 5 MG TABL5 M1 PO; +CEFDINIR300 MG PO; +KEFLEX250 MG; +KEFLEX500 M1 PO; +LIDOCAINE PAIN1 EACH TOP; +LIDOPATCH1 EACH TOP; +METAMUCIL PACK3.4 GM PO; +MINOCIN100 MG PO; +NORCO 5-325 TA1 EAC1 PO; +REGLAN 10 MG TA10 MG PO
== END ==
LOC: M.RAD 13:30
DX: S32.9XXD Fracture of unspecified parts of lumbosacral spine and pelvis, subsequent encounter for fracture with routine healing (principal); M85.80 Other specified disorders of bone density and structure, unspecified site; X58.XXXD Exposure to other specified factors, subsequent encounter

== ENCOUNTER 2018-05-10 12:18 | Emergency (ER) | payer MEDICARE ==
[~2018-05-10] VITALS: Ht 157.5 cm; Wt 41.7 kg
[~2018-05-10 12:18] MED LIST changes: -AMBIEN 5 MG TABL5 M1 PO; -CEFDINIR300 MG PO; -KEFLEX500 M1 PO; -LIDOCAINE PAIN1 EACH TOP; -LIDOPATCH1 EACH TOP; -METAMUCIL PACK3.4 GM PO; -NORCO 5-325 TA1 EAC1 PO; -REGLAN 10 MG TA10 MG PO
[2018-05-10] MEDS ORDERED: NORCO 5-325 TA1 EAC1 PO (14:23)
[2018-05-10 14:35] VITALS: BP 152/70
== END 2018-05-10 14:36 | disposition home or self-care (01) ==
LOC: M.ERS 12:18
DX: S32.008A Other fracture of unspecified lumbar vertebra, initial encounter for closed fracture (principal); S32.89XA Fracture of other parts of pelvis, initial encounter for closed fracture; Z96.642 Presence of left artificial hip joint; Z96.641 Presence of right artificial hip joint; Z90.710 Acquired absence of both cervix and uterus; W18.39XA Other fall on same level, initial encounter; Y93.89 Activity, other specified; Y92.89 Other specified places as the place of occurrence of the external cause; Y99.8 Other external cause status

== ENCOUNTER 2018-05-12 08:40 | Inpatient (IN) | payer MEDICARE ==
[~2018-05-12] VITALS: Ht 160 cm; Wt 41.7 kg
[~2018-05-12 08:40] MED LIST changes: +NORCO 5-325 TA1 EAC1 PO
[2018-05-12 08:47] VITALS: BP 146/59
[2018-05-12 09:05] LABS: ABSOLUTE EOSINOPHILS 0.2 thou/uL (0.0-0.7); ABSOLUTE LYMPHOCYTES 1.7 thou/uL (0.8-5.3); ABSOLUTE MONOCYTES 0.7 thou/uL (0.0-1.2); ABSOLUTE NEUTROPHILS 8.1 thou/uL (1.6-8.1); BASOPHILS 0.4 %; EOSINOPHILS 2.3 %; HEMATOCRIT 36.1 % (37.0-47.0); HEMOGLOBIN 11.4 gm/dL (12.0-15.0); LYMPHOCYTES 15.6 %; MCH 28.7 pg (26.0-34.0); MCHC 31.5 g/dL (28.0-37.0); MCV 91.2 fL (80.0-100.0); MONOCYTES 6.2 %; MPV 6.9 fl. (7.2-11.1); NUCLEATED RBCS 0 /100WBC; PLATELET COUNT* 444 thou/uL (150-400); POLYS 75.5 %; RBC 3.96 mil/uL (4.20-5.00); RDW-CV 16.2 % (10.5-14.5); WBC 10.8 thou/uL (4.0-11.0)
[2018-05-12 09:15] LABS: APTT 24.7 Seconds (25.0-31.3); PROTIME 9.6 Seconds (9.20-11.50)
[2018-05-12 09:25] LABS: ANION GAP 1 mmol/L (7-16); BUN 20 mg/dL (7-18); CALCIUM 8.9 mg/dL (8.5-10.1); CHLORIDE 104 mmol/L (98-107); CO2 34 mmol/L (21-32); CREATININE 0.8 mg/dL (0.6-1.3); GLUCOSE 109 mg/dL (70-99); POTASSIUM 4.1 mmol/L (3.5-5.1); SODIUM 139 mmol/L (136-145)
[2018-05-12 09:33] LABS: ALBUMIN 3.2 g/dL (3.4-5.0); ALKALINE PHOSPHATASE 179 U/L (46-116); NT-PRO BRAIN NAT PEPTIDE 654 pg/mL (<300); SGOT 18 U/L (15-37); SGPT 16 U/L (30-65); TOTAL BILIRUBIN 0.3 mg/dL (<0.1-1.0); TOTAL PROTEIN 7.2 g/dL (6.4-8.2); TROPONIN-I LEVEL <0.06 ng/mL (<0.06)
[2018-05-12 10:22] VITALS: BP 138/55
[2018-05-12 10:37] VITALS: BP 151/56
--- NOTE | 2018-05-12 10:59 | NUR ---
PATIENT ADMITTED FROM ER TO ROOM 111. ALERT AND ORIENTED. DENIES PAIN AT REST. ADMISSION HISTORY AND ASSESSMENT CHARTED. VSS. SON AT BEDSIDE. PATIENT EDUCATED ON FALL PREVENTION. IVF INFUSING ORDERED. BED ALARM SET. CALL LIGHT WITHIN REACH. WILL CONTINUE TO MONITOR.
[2018-05-12] MEDS ORDERED: METAMUCIL1 EAC1 PO (11:49)
[2018-05-12] MEDS ORDERED: MIRALAX17 GM PO (11:49)
[2018-05-12] MEDS ORDERED: TOPROL XL25 MG PO (11:49)
[2018-05-12] MEDS ORDERED: ALBUTEROL2.5 MG/31 INH (12:28)
[2018-05-12 15:55] VITALS: BP 132/53
--- NOTE | 2018-05-12 16:13 | NUR ---
PATIENT REMAINS ALERT AND ORIENTED. RIGHT HIP PAIN CONTROLLED WITH HYDROCODONE. IVF INFUSING ORDERED. AMBULATES WITH WALKER AND STANDBY ASSIST. MIRILAX FOR BOWELS. TOLERATING MEALS. WAFFLE CUSHION ORDERED PER PATIENT REQUEST TO MAKE CHAIR MORE COMFORTABLE. BED ALARM SET. CALL LIGHT WITHIN REACH. WILL CONTINUE TO MONITOR.
--- NOTE | 2018-05-12 17:36 | EKG ---
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 : 1930 Requested By: Red Castorena Order Number: [id number] MD: Lamont Murdock Measurements Intervals [place] Rate: 71 P: 67 [place]: 156 QRS: 33 QRSD: 85 T: 64 QT: 411 QTc: 447 Interpretive Statements Sinus rhythm Atrial premature complex Probable left atrial enlargement Abnormal R-wave progression, early transition Probable left ventricular hypertrophy Compared to ECG 03/18/2018 08:44:40 Sinus tachycardia no longer present Electronically Signed On 05-12-2018 17:36:45 CDT by Lamont Murdock [email or web address] <ELECTRONICALLY SIGNED> By: Lamont Murdock MD, [facility] 05/12/18 1736 [id number] [id number] Lamont Murdock MD, [facility] /EPI
[2018-05-12 20:00] VITALS: BP 146/70
[2018-05-13 03:59] LABS: HEMOGLOBIN 10.5 gm/dL (12.0-15.0); MCH 28.8 pg (26.0-34.0); MCHC 31.8 g/dL (28.0-37.0); MCV 90.6 fL (80.0-100.0); MPV 7.1 fl. (7.2-11.1); RBC 3.64 mil/uL (4.20-5.00); RDW-CV 15.9 % (10.5-14.5); WBC 14.6 thou/uL (4.0-11.0)
[2018-05-13 04:09] LABS: ALBUMIN 2.8 g/dL (3.4-5.0); CALCIUM 8.5 mg/dL (8.5-10.1); CREATININE 0.6 mg/dL (0.6-1.3); POTASSIUM 4.2 mmol/L (3.5-5.1); TOTAL BILIRUBIN 0.4 mg/dL (<0.1-1.0)
--- NOTE | 2018-05-13 04:44 | NUR ---
PATIENT IS ALERT AND ORIENTED X4 BUT FORGETFUL AT TIMES. UP WITH STAND BY ASSIST, VOIDING ADEQUATELY. DENIES PAIN OR NAUSEA. IVF INFUSING ORDERED. VITALS STABLE. CONTINUE TO MONITOR.
[2018-05-13 08:10] VITALS: BP 136/72
--- NOTE | 2018-05-13 09:56 | NUR ---
Nutrition: RD familiar with pt. Pt usually weighs 90-100#, chronic underweight. H/o leg cellulitis, Lt lower lung lobe removal. Pt is forgetful. Tolerating meals. Ate 75% of BKFST this morning. Regular diet. No nausea. Current wt: 92#. No nutrition interventions at this time. Pt has had Ensure HP in the past - it is available if meal intake decreases to <50%. Underweight R/T body frame AEB usual wt of 90-100#, advanced age. Consider Mild risk.
--- NOTE | 2018-05-13 12:17 | NUR ---
PATIENT HAS USEED [facility] IN THE PAST FOR HH AND WOULD LIKE THEM AGAIN UPON DISCHARGE.
[2018-05-13 15:44] VITALS: BP 162/65
--- NOTE | 2018-05-13 16:06 | NUR ---
PT.UP IN RECLINER. SHE SAID SHE LIVES BY HERSELF. SHE IS FEELING MUCH BETTER THAN WHEN SHE CAME IN. SHE SAID HER SON,, HELPS HER ALOT. HE IS IN AND OUT ALL DAY. SHE CAN COOK. SHE SAID THEY EAT OUT ALOT. HER DAUGHTER AND SON HELP HER CLEAN,LAUNDRY,ETC. SHE IS CURRENTLY ON SERVICE WITH [facility]. LEDY CAME TO SEE HER THIS AM. SPOKE WITH CM AND WILL ACCEPT HER BACK AT DISCHARGE FOR . PT.HAS REHAB CONSULT. SHE IS REFUSING SNF. CM WILL FOLLOW.
--- NOTE | 2018-05-13 16:15 | NUR ---
PATIENT REMAINS ALERT AND ORIENTED. DENIES NEED FOR HYDROCODONE. LIDODERM PATCH PLACED OVER RIGHT HIP THIS AM. REPORTS MINIMAL PAIN. AMBULATING WITH STANDBY ASSIST AND WALKER. PARTICIPATED WITH PT/OT. UP TO CHAIR. TOLERATING MEALS. WANTS TO DISCHARGE WITH HOME HEALTH. DRESSING OVER SKIN TEAR TO LEFT LEG C/D/I. BED ALARM SET DUE TO RECENT FALL. CALL LIGHT WITHIN REACH. WILL CONTINUE TO MONITOR.
[2018-05-13 16:52] LABS: URINE BILIRUBIN NEGATIVE (Negative); URINE BLOOD NEGATIVE (Negative); URINE CLARITY CLEAR; URINE COLOR YELLOW; URINE GLUCOSE-RANDOM 1+ (Negative); URINE KETONES NEGATIVE (Negative); URINE LEUKOCYTES-REFLEX NEGATIVE (Negative); URINE NITRITE-REFLEX NEGATIVE (Negative); URINE PROTEIN NEGATIVE (Negative); URINE UROBILINOGEN 0.2 E.U./dl (0.2-1.0)
--- NOTE | 2018-05-13 17:33 | NUR ---
RECEIVED CONSULT FOR POSSIBLE REHAB ADMISSION. CONSULT HAS BEEN ACKNOWLEDGED BY MUSEUM OR ZOO DIRECTOR AND DR. HERNDON. PATIENT KNOWN TO THIS REHAB FROM RECENT STAY AFTER SBO AND EXTENSIVE SX. PATIENT NOW ADMITTED AFTER A FALL WITH PUBIC FX. PATIENT WAS EVALUATED BY PT/OT TODAY. SHE IS DEBILITATED AND WITH IMPAIRED MOBILITY AND SELF CARES DUE TO PAIN FROM FX AND FALL. WILL FOLLOW ALONG AND SEE HOW PATIENT PROGRESSES WITH THERAPIES TO DETERMINE IF PATIENT QUALIFIES FOR ACUTE REHAB. WOULD BENEFIT FROM SKILLED VS REHAB DEPENDING ON NEEDS AND DISCHARGE PLAN HOME PATIENT DOES LIVE ALONE BUT HAS SUPPORTIVE SON. THANK YOU FOR THIS REFERRAL.
[2018-05-13 20:00] VITALS: BP 155/67
--- NOTE | 2018-05-14 04:30 | NUR ---
PATIENT RESTING QUIETLY ON HOURLY ROUNDS. VITALS STABLE ON ROOM AIR. DENIES PAIN. UP WITH ASSIST X1 TO BSC, VOIDING ADEQUATELY. TOLERATING DIET. WILL CONTINUE TO MONITOR.
[2018-05-14 04:32] LABS: HEMATOCRIT 33.5 % (37.0-47.0); HEMOGLOBIN 10.6 gm/dL (12.0-15.0); MCH 28.6 pg (26.0-34.0); MCHC 31.5 g/dL (28.0-37.0); MCV 90.7 fL (80.0-100.0); MPV 7.5 fl. (7.2-11.1); RBC 3.7 mil/uL (4.20-5.00); RDW-CV 15.8 % (10.5-14.5); WBC 13.3 thou/uL (4.0-11.0)
[2018-05-14 04:47] LABS: CALCIUM 8.4 mg/dL (8.5-10.1); CREATININE 0.6 mg/dL (0.6-1.3); MAGNESIUM 1.9 mg/dL (1.8-2.4); POTASSIUM 3.8 mmol/L (3.5-5.1)
[2018-05-14] MEDS ORDERED: LIDOPATCH1 EACH TOP (07:58)
[2018-05-14] MEDS ORDERED: TRAMADOL 50 MG50 MG PO (07:58)
[2018-05-14 08:00] VITALS: BP 133/34
--- NOTE | 2018-05-14 14:00 | NUR ---
[facility] CALLED AND SAID THEY CAN ACCEPT PT.TO INPT.REHAB TODAY. NOTIFIED VIN PYLE AND PT. PT.AGREEABLE. SON CAME AND INFORMED HIM,ALSO. LATISHA/EDENILSON WILL DISCUSS TIME OF TRANSFER.
[2018-05-14 15:37] VITALS: BP 123/42
[2018-05-14 15:44] VITALS: BP 116/55
--- NOTE | 2018-05-14 16:40 | NUR ---
REPORT TO MYCHAL ON REHAB UNIT. PT AND SON INFORMED SHE IS GOING TO ROOM 324. PT AND BELONGINGS TO ROOM 324 VIA BED
== END 2018-05-14 16:53 | DRG 542 ==
LOC: M.ERS 08:40 → M.ORTHSURG 09:41 → M.TBA-ER 09:41 → M.ORTHSURG 10:06
PROVIDERS: Family Medicine; ADMIT Internal Medicine
DX: M80.052A Age-related osteoporosis with current pathological fracture, left femur, initial encounter for fracture (principal); J96.00 Acute respiratory failure, unspecified whether with hypoxia or hypercapnia; E44.1 Mild protein-calorie malnutrition; E86.0 Dehydration; J44.9 Chronic obstructive pulmonary disease, unspecified; Z96.643 Presence of artificial hip joint, bilateral; Z90.710 Acquired absence of both cervix and uterus; Z90.49 Acquired absence of other specified parts of digestive tract; W31.89XA Contact with other specified machinery, initial encounter; Y93.89 Activity, other specified; Y92.810 Car as the place of occurrence of the external cause; Y99.8 Other external cause status; Z79.899 Other long term (current) drug therapy

== ENCOUNTER 2018-05-14 14:20 | Inpatient (IN) | payer MEDICARE ==
[~2018-05-14] VITALS: Ht 160 cm; Wt 41.7 kg
[~2018-05-14 14:20] MED LIST changes: +LIDOPATCH1 EACH TOP
[2018-05-14 17:00] VITALS: BP 137/57
--- NOTE | 2018-05-14 18:42 | NUR ---
PT. ARRIVED PER W/C AT 1640 FROM [facility] TO ROOM 324 W ALERT ORIENTED PLEASANT COOPERATIVE. HX OF PELVIC FX WBAT, C/O MORE PAIN DOWN RT.LEG. APPETITE GOOD AT SUPPER FEEDS SELF. TRANSFERS WITH SBA G BELT WALKER FROM RECLINER AND W/C. ORIENTED TO ROOM REHAB ROUTINE. PT. HAS 2 ABRASION TYPE AREAS ON MID BUTTOCKS INTACT, SKIN TEAR LEFT LEG. ORDERS VERIFIED BY DR. CASEY DR. HERNDON WILL RETURN THURSDAY. ORIENTED TO USE CALL LIGHT FOR ASSISTANCE.
[2018-05-15 04:47] LABS: HEMATOCRIT 30.2 % (37.0-47.0); HEMOGLOBIN 9.8 gm/dL (12.0-15.0); MCH 28.8 pg (26.0-34.0); MCHC 32.3 g/dL (28.0-37.0); MPV 7.5 fl. (7.2-11.1); RBC 3.4 mil/uL (4.20-5.00); RDW-CV 16.1 % (10.5-14.5); WBC 12.9 thou/uL (4.0-11.0)
[2018-05-15 05:24] LABS: CREATININE 0.6 mg/dL (0.6-1.3); POTASSIUM 4.2 mmol/L (3.5-5.1)
--- NOTE | 2018-05-15 05:26 | NUR ---
ASSUMED CARE AT 1920. ALERT AND ORIENTED. PLEASANT. PELVIC FRACTURE. WBAT BLE. DENIED ANY NEED FOR PAIN MED. SAYS THAT FEELS CONSTIPATED. WAS FINALLY ABLE TO HAVE SMALL BM. MIN ASSIST WITH GAIT BELT AND WALKER. UP TO BATHROOM. DOES OWN CARES. COCCYX HAS SMALL ABRASION. BARRIER CREAM APPLIED. SKIN TEAR TO LEFT LEG WITH MEPILEX WAS CHANGED. SCABBED AREA TO RLE. PICTURES TAKEN. TAKES PILLS WHOLE WITHOUT ISSUES. SAYS HAS DIFFICULTY WITH SLEEP. REFUSED TO TAKE AMBIEN DUE TO SIDE EFFECT. SLEPT LITTLE. CALL LIGHT IN REACH. BED ALARM ON.
[2018-05-15 07:58] VITALS: BP 139/57
--- NOTE | 2018-05-15 17:45 | NUR ---
ASSUMED CARE AT 0730 PATIENT ALERT/ORIENTED, UP WITH ASSIST OF ONE WITH WALKER AND GAIT BELT, PAIN MEDS GIVEN X2 WITH GOOD RELIEF, HOURLY ROUNDING COMPLETED, BED/CHAIR ALARMS IN PLACE, CALL LIGHT IN REACH, PARTICIPATED IN ALL THERAPIES TODAY. TO DINING ROOM FOR MEALS.
[2018-05-15 19:30] VITALS: BP 127/70
--- NOTE | 2018-05-15 20:30 | NUR ---
SITTING UP IN RECLINER WITH LEGS ELEVATED. DENIES NEED FOR PAIN MEDICATION. AMBULATED TO THE BATHROOM WITH SBA, GAITBELT, WALKER. TOOK MEDICATIONS WHOLE WITH WATER.
--- NOTE | 2018-05-16 05:53 | NUR ---
UP TO THE BATHROOM X 3 THIS SHIFT TO VOID ONCE AT BEDTIME AND TWICE DURING THE NIGHT. VICODIN GIVEN AT 2227 WITH GOOD RELIEF. PATIENT STATES FEELS RESTED THIS MORNING. AMBULATES WITH SBA, GAITBELT, WALKER. HOURLY ROUNDING IN PROGRESS.
[2018-05-16 08:10] VITALS: BP 137/54
--- NOTE | 2018-05-16 18:23 | NUR ---
ASSUMED CARE AT 0730 PATIENT ALERT/ORIENTED, PAIN REPORTED BUT REFUSED PAIN MEDICAITON. DID PLACE LIDODERM PATCH TO RIGHT HIP. UP WITH STANDBY ASSIST AND WALKER/GAIT BELT, TO DINING ROOM FOR MEALS. HOURLY ROUNDING COMPLETED, BED/CHAIR ALARMS IN PLACE, CALL LIGHT IN REACH.
[2018-05-16 19:30] VITALS: BP 137/47
--- NOTE | 2018-05-16 21:25 | NUR ---
SITTING UP IN BED WATCHING TV. UPSET ABOUT HER BOWELS. STATES HASN'T HAD A BOWEL MOVEMENT IN 3 DAYS. REMINDED PATIENT THAT SHE HAS 2 BM'S TODAY AND A BM TODAY. PATIENT STATES THAT THIS IS NOT TRUE. PATIENT RECEIVED MOM AND A SUPPOSITORY ON DAY SHIFT. ACCORDING TO THE DAY RN PATIENT TOLD HER SHE HAD A BM BUT FLUSHED IT BEFORE IT COULD BE VIEWED. BOWEL SOUNDS ARE PRESENT AND ABDOMEN IS SOFT. PATIENT WAS HESITANT TO TAKE PRUNE JUICE BUT DID AGREE TO GIVE IT A TRY. PATIENT HAS A HISTORY OF TWO BOWEL OBSTRUCTIONS SO IS VERY CONCERNED ABOUT REGULAR BOWEL MOVEMENTS. GAVE PAIN MEDICATION FOR COMPLAINT OF PELVIC PAIN. PATIENT HAS A PELVIC FX. AMBULATES TO THE BATHROOM WITH SBA, GAITBELT, WALKER. DOES OWN HYGIENE AND CLOTHING ADJUSTMENTS. TOOK MEDICATIONS WHOLE WITH WATER.
--- NOTE | 2018-05-17 05:23 | NUR ---
UP X 3 DURING THE NIGHT TO THE BATHROOM. AMBULATES WITH SBA, GAITBELT, WALKER. HAS A MODERATE BM AT 0151. NO FURTHER COMPLAINT OF PAIN. HOURLY ROUNDING IN PROGRESS.
[2018-05-17 07:29] VITALS: BP 123/47
--- NOTE | 2018-05-17 11:07 | NUR ---
Nutrition: Albumin 2.8, prealb 12. Pt admitted to Rehab with pelvic FXs. Pt stated she has lost some wt when she fell. Per [employer], she has weighed 90-100# She is eating 100% of Regular diet. Wt: 93#. RD will order Ensure Enlive b.i.d. for added nutrition. Mild risk. Will follow weekly.
--- NOTE | 2018-05-17 14:00 | NUR ---
ASSUMED CARE AT 0730. ALERT ORIENTED PLEASANT COOPERATIVE. HX OF PELVIC FX WBAT. TRANSFERS WITH SBA G BELT WALKER AND AMBULATES TO BR TO VOID HAD A LARGE BM THIS A.M. ABLE TO DO HYGEINE AND CLOTHING ADJUSTMENTS. USES CALL LIGHT APPROPRIATELY FOR ASSIST. MEDICATED X 2 WITH HYDROCODONE FOR RT. LEG PAIN. UP IN RECLINER AT BEDSIDE WITH BLES ELEVATED. INSTRUCTED TO DO WEIGHT SHIFTS WHILE IN CHAIR HAS SMALL ABRASIONS ON BUTTOCKS. SON HERE VISITING AT LUNCH.
[2018-05-17 20:00] VITALS: BP 155/62
--- NOTE | 2018-05-18 05:27 | NUR ---
ASSUMED CARES AT 1920. ALERT AND ORIENTED. PLEASANT. NORCO GIVEN FOR RIGHT LEG PAIN. TAKES PILLS WHOLE WITHOUT ISSUES. SBA WITH GAIT BELT AND WALKER. UP TO BATHROOM. DOES OWN CARES. NO ISSUES OVERNIGHT. CALL LIGHT IN REACH. BED ALARM ON.
[2018-05-18 07:48] VITALS: BP 146/53
--- NOTE | 2018-05-18 15:07 | NUR ---
ASSUMED CARE AT 0730. ALERT ORIENTED PLEASANT COOPERATIVE. HX OF PELVIC FX WBAT. TRANSFERS WITH SBA G BELT WALKER AND AMBULATES TO TOILET ABLE TO DO HYGIENE AND CLOTHING ADJUSTMENTS. FEEDS SELF APPETITE GOOD TAKES MEDS WITHOUT DIFFICULTY. MEDICATED X 2 WITH PRN MED FOR RT. LEG AND THIGH PAIN WITH SOME RELIEF STATED. PARTICIPATING IN THERAPIES. PTS. SON HERE VISITING AT LUNCH TIME. PT. WANTING TO GO HOME TOMORROW. USING CALL LIGHT APPROPRIATELY FOR ASSIST. SITTING IN RECLINER WHEN NOT IN THERAPIES WITH BLES ELEVATED.
[2018-05-18 20:00] VITALS: BP 131/55
--- NOTE | 2018-05-19 05:20 | NUR ---
ASSUMED CARES AT 1920. ALERT AND ORIENTED. PLEASANT AND COOPERATIVE. C/O PAIN TO RIGHT LEG. PAIN MEDS GIVEN. SBA WITH GAIT BELT AND WALKER. UP TO BATHROOM FEW TIMES DURING THE NIGHT. DOES OWN CARES. SLEPT MOST OF THE NIGHT. NO ISSUES. CALL LIGHT IN REACH AND BED ALARM ON.
[2018-05-19 07:53] VITALS: BP 124/56
--- NOTE | 2018-05-19 15:20 | NUR ---
JOSH and Dr Torres met with the pt to review team conference summary and plan for pt to dc home on Thursday. Pt was reluctant and wanted to be able to dc home today but agreed to remain in therapies and try to progress to mod I prior to pt dc home alone. JOSH mentioned SW to order rolling walker and arranged HH services at time of dc. JOSH called pt son Nikita who did not answer and team discussed Nikita is out of town. JOSH called and spoke with pt dtr Myla and reviewed team conference summary and team's recommendations. Pt dtr in agreement with plan. SW to continue to follow to assist with safe dc planning.
--- NOTE | 2018-05-19 18:35 | NUR ---
ASSUMED CARE AT 0730 PATIENT ALERT/ORIENTED, UP WITH STANDBY ASSIST WITH GAIT BELT AND WALKER, PAIN MED GIVEN X1 TODAY FOR RIGHT HIP, LOW BACK PAIN, HOURLY ROUNDING COMPLETED, BED/CHAIR ALARMS IN PLACE, CALL LIGHT IN REACH, PARTICIPATED IN ALL THERAPIES TODAY, TO DINING ROOM FOR MEALS
[2018-05-19 19:30] VITALS: BP 140/52
--- NOTE | 2018-05-20 04:38 | NUR ---
ASSUMED CARE OF PT AT 1900 PT ALERT AND ORIENTED X4 VS AND ASSESSMENT AT BASELINE. PT AMBULTATED TO BR WITH WALKER AND GB WITH STANDY ASSIST AND WAS ABLE TO TOILIET WITHOUT ASSISTANCE. PT HAD PAIN MEDS ONCE THEN SLEPT THROUGH THE NIGHT. WILL CONTINUE PLAN OF CARE.
[2018-05-20 08:00] VITALS: BP 118/54
--- NOTE | 2018-05-20 19:22 | NUR ---
I ASSUMED CARE OF THE PATIENT AT 0700. SHE IS ALERT AND ORIENTED X4 AND IS UP WITH STAND BY ASSIST, WALKER, GAITBELT. BED IS IN THE LOW LOCKED POSITION AND CALL LIGHT IS IN REACH. SHE IS WEIGHT BEARING TOLERATED. SHE WAS MOVED TO THE APARTMENT TODAY. SHE HAD A FEW BOWEL MOVEMENTS WELL. HOURLY ROUNDING WAS COMPLETED AND PATIENT NEEDS ARE MET. PAIN IS MANAGED WITH PRN MEDS. SHE IS NOT MOD I BUT DOES ATTEMPT TO MOVE AROUND ON HER OWN. WILL CONTINUE TO MONITOR.
[2018-05-20 20:00] VITALS: BP 135/44
--- NOTE | 2018-05-21 05:33 | NUR ---
ASSUMED PT CARE AT 1930. PT ALERT AND ORIENTED X4, POLITE AND COOPERATIVE WITH CARES. UP TO BATHROOM WITH SBA, GAIT BELT AND WALKER TO VOID X3 OVERNIGHT. NO STOOL THIS SHIFT. PAIN MEDICATION AT HS. PT USING CALL LIGHT APPROPRIATELY. PT IS NOT MOD I. CALL LIGHT AND FREQUENTLY USED ITEMS WITHIN REACH. HOURLY ROUNDING IN PROGRESS, WILL CONTINUE TO MONITOR.
[2018-05-21 08:00] VITALS: BP 125/55
--- NOTE | 2018-05-21 16:23 | NUR ---
SW spoke with pt about safe dc planning. SW ordered RW for pt home use at dc through pt preference [facility]. Planning for pt to dc home on Thursday. SW to continue to follow to assist with safe dc plan.
--- NOTE | 2018-05-21 16:25 | NUR ---
ASSUMMED CARE OF PT AT 0730, PT ALERT AND ORIENTED, PT TRANSFERS WITH SBA, GB AND WALKER, AMBULATES TO DININGROOM FOR MEALS, MEPILEX TO LEFT ZELAYA INTACT, SCAB ON RIGHT ZELAYA, BM X 1 THIS SHIFT, LIDOCAINE PATCH TO LOW BACK, TAKING FOOD AND FLUIDS, VOIDS PER TOILET, HOURLY ROUNDING COMPLETED, PARTICIPATED IN ALL THERAPIES, ASSESSMENT COMPLETE, WILL CONTINUE TO MONITOR.
[2018-05-21 20:26] VITALS: BP 124/59
--- NOTE | 2018-05-22 04:55 | NUR ---
PATIENT SLEPT WELL DURING THIS SHIFT. PT USES CALL LIGHT APPROPRIATELY FOR ASSISTANCE TO BATHROOM. PT UP WITH GAIT BELT AND WALKER. PT AMBULATES WELL. PT WITH SKIN TEAR ON LT LEG; MEPILEX DSG INTACT. PT DENIES NEEDS AT THIS TIME. FREQUENTLY USED ITEMS AND CALL LIGHT WITHIN REACH. SIDERAILS UPX3 AND BED ALARM ON. WILL CONTINUE TO MONITOR.
[2018-05-22 07:58] VITALS: BP 118/45
--- NOTE | 2018-05-22 17:58 | NUR ---
ASSUMMED CARE OF PT AT 0730, PT ALERT AND ORIENTED, FORGETFUL AT TIMES, TRANSFERS WITH SBA, GB WALKER, PT MOVED FROM RECLINER TO STRAIGHT CHAIR WITHOUT CALLING FOR ASSIST, PT RE EDUCATED ON NEED TO CALL NURSE, PT STATED SHE WAS TRYING TO BE SNEAKY AND DID NOT THINK WE SAW HER MOVE, TURNS OFF CHAIR ALARM, MEPILEX DRESSING TO LEFT ZELAYA, SCAB LOOSE ON RIGHT ZELAYA, BUTTOCKS AREA REDDENED, BARRIER OINTMENT APPLIED, LIDODERM PATCH APPLIED TO LOWER BACK, PT STATES DOES HELP DISCOMFORT IN BACK, PT TAKING FOOD AND FLUIDS WELL, BM X 1, VOIDS PER TOILET, PARTICIPATED IN ALL THERAPIES, AMBULATED TO DININGROOM FOR MEALS, HOURLY ROUNDING COMPLETED, ASSESSMENT COMPLETE WILL CONTINUE TO MONITOR.
[2018-05-22 22:22] VITALS: BP 140/69
--- NOTE | 2018-05-23 05:15 | NUR ---
ASSUMED CARES AT 1920. ALERT AND ORIENTED. PLEASANT. C/O BLE PAIN. NORCO GIVEN FOR PAIN. SBA WITH GAIT BELT AND WALKER. UP TO BATHROOM. DOES OWN CARES. USED CALL LIGHT APPROPRIATELY. SLEPT OFF AND ON. BED ALARM ON.
[2018-05-23 09:26] VITALS: BP 138/69
--- NOTE | 2018-05-23 18:42 | NUR ---
ASSUMMED CARE OF PT AT 0730, PT ALERT AND ORIENTED, PT TRANSFERS WITH SBA GB AND WALKER, PT COMPLAINED OF PAIN IN BILATERAL LEGS THIS AFTERNOON, MEDICATED PER ORDER, PT UP IN CHAIR ALL SHIFT, PT ENCOURAGED TO SHIFT WEIGHT FREQUENTLY, PT AMBULATES TO DININGROOM FOR MEALS, TAKING FOOD AND FLUIDS WELL, BUTTOCKS REMAIN SLIGHTLY REDDENED, BARRIER OINTMENT APPLIED, MEPILEX CHANGED TO SKIN TEAR ON LEFT ZELAYA, AREA ON RIGHT ZELAYA INTACT, USING CALL LIGHT APPROPRIATELY THIS SHIFT, BM X 1 THIS SHIFT, VOIDS PER TOILET, HOURLY ROUNDING COMPLETED, ASSESSMENT COMPLETE, WILL CONTINUE TO MONITOR.
[2018-05-23 20:45] VITALS: BP 124/55
[2018-05-24 05:01] LABS: HEMATOCRIT 32.8 % (37.0-47.0); HEMOGLOBIN 10.4 gm/dL (12.0-15.0); MCH 28.4 pg (26.0-34.0); MCHC 31.5 g/dL (28.0-37.0); MPV 7.3 fl. (7.2-11.1); RBC 3.65 mil/uL (4.20-5.00); RDW-CV 15.4 % (10.5-14.5); WBC 8.7 thou/uL (4.0-11.0)
[2018-05-24 05:16] LABS: ALBUMIN 2.7 g/dL (3.4-5.0); CALCIUM 8.1 mg/dL (8.5-10.1); CREATININE 0.9 mg/dL (0.6-1.3); MAGNESIUM 2.2 mg/dL (1.8-2.4); POTASSIUM 4.3 mmol/L (3.5-5.1); TOTAL BILIRUBIN 0.1 mg/dL (<0.1-1.0); TOTAL PROTEIN 6.9 g/dL (6.4-8.2)
--- NOTE | 2018-05-24 06:07 | NUR ---
ASSUMED CARE AT 1920. ALERT AND ORIENTED, PLEASANT. C/O RADIATING PAIN TO RIGHT LEG. OVERNIGHT PAIN HAS BEEN MORE PRNOUNCED THAN BEFORE. NORCO AND TRAMADOL GIVEN WITH SOME RELIEF. PT IS CONCERNED THAT THIS WILL AFFECT HER D/C TOMORROW. SBA WITH GAIT BELT AND WALKER. UP TO BATHROOM. DOES OWN CARES. DID NOT SLEEP WELL DUE TO PAIN. CALL LIGHT IN REACH AND BED ALARM ON.
[2018-05-24 08:00] VITALS: BP 137/55
--- NOTE | 2018-05-24 15:14 | NUR ---
SW called [facility] and spoke with Yaritza and discussed that pt son may be trying to find a different walker because he wants to find a walker that will accommodate the tray he purchased for his mother. Issuing the walker is on hold until confirmation that pt son will be able to find particular walker is received. Pt to dc home alone tomorrow with family support and services to follow. SW to continue to follow to assist with safe dc planning.
--- NOTE | 2018-05-24 18:31 | NUR ---
PT CARE ASSUMED AT 0730, AM ASSESSMENT AND VITAL SIGNS COMPLETED DOCUMENTED. PT HAS COMPLETED ALL THERAPY SESSIONS SCHEDULED AND IS ON SCHEDULE FOR DISCHARGE 05/25/18 DISCUSSED. ACTIVITY LEVEL HAS BEEN ADVANCED TO MODIFIED INDEPENDENCE IN HER ROOM. HOURLY ROUNDING CONTINUES, NO ACUTE DISTRESS THIS SHIFT.
[2018-05-24 20:09] VITALS: BP 106/57
--- NOTE | 2018-05-24 22:00 | NUR ---
RESTING QUIETLY IN BED. MODIFIED INDEPENDENT IN ROOM WITH A WALKER. VICODIN GIVEN FOR COMPLAINT OF RIGHT LEG PAIN. TOOK MEDICATIONS WHOLE WITH WATER.
[2018-05-25] MEDS ORDERED: LIDOCAINE PAIN1 EACH TOP (00:18)
[2018-05-25 00:19] VITALS: BP 106/57
--- NOTE | 2018-05-25 05:45 | NUR ---
RESTED QUIETLY. VICODIN GIVEN X ONE DURING THE NIGHT FOR COMPLAINT OF RIGHT LEG PAIN WITH RELIEF. HOURLY ROUNDING IN PROGRESS.
[2018-05-25 09:20] VITALS: BP 114/51
[2018-05-25 10:51] VITALS: BP 106/57
[2018-05-25] MEDS ORDERED: MIRALAX17 GM PO (12:25)
[2018-05-25] MEDS ORDERED: METAMUCIL PACK3.4 GM PO (12:28)
--- NOTE | 2018-05-25 12:37 | NUR ---
Pt to dc home alone today with family support. SW faxed HH referral and orders to [facility], pt preference. Pt walker order ultimately voided due to pt/family choice to purchase a walker that fit previously purchased tray and pt son plans to try to receive reimbursement through pt insurance. Pt son to provide pt ride home.
--- NOTE | 2018-05-25 13:10 | NUR ---
PT CARE ASSUMED AT 0730, AM ASSESSMENT AND VITAL SIGNS COMPLETED DOCUMENTED. PT COMPLETED AM THERAPY SESSIONS AND HAS MET DISCHARGE GOALS. DISCHARGE INSTRUCTIONS DISCUSSED WITH PATIENT AND HER SON, PRINTED COPY OF INSTRUCTIONS PROVIDED FOR HOME REFERENCE. PATIENT AND HER BELONGINGS TRANSPORTED TO EXIT, DISCHARGED HOME IN STABLE CONDITION.
--- NOTE | 2018-07-19 10:19 | D ---
[facility] [address] [place] [address] DISCHARGE SUMMARY Name: MADIHA CAMERON Room: [address] IN M.R.#: [id number] Admission: 05/14/18 Attend Phys: Bela Simms DO Discharge: 05/25/18 Date of : 34 Report #: [id number] THIS REPORT FOR: //name// CC: Jameel Simms DATE OF SERVICE: 05/25/2018 DISCHARGE DIAGNOSIS: Significant debility with recent small-bowel obstruction and sepsis. DISCHARGE DISPOSITION: To the home setting. She will follow with primary care physician within 1 week and GI within 2-4 weeks. Notifications for physician were given. MEDICATIONS: Reviewed and reconciled by myself and are available in the MAR. She will monitor weight gain, maintain a cardiac diet and maintain fall precautions. PHYSICAL EXAMINATION: GENERAL: Alert, oriented, no apparent distress. VITAL SIGNS: Reviewed and are stable. HEENT: Atraumatic, normocephalic. Pupils equal, round, reactive. ABDOMEN: Soft, nontender, nondistended. NEUROLOGIC: Cranial nerves 2-12 are grossly intact with no focal neuro deficits, 5/5 strength in bilateral upper and lower extremities. SKIN: Warm and dry. No rashes or lesions noted. <ELECTRONICALLY SIGNED> By: Bela Simms DO 07/19/18 1019 1616 1947KelDO nile Ho
== END 2018-05-25 13:21 | disposition home health service (06) | DRG 536 ==
LOC: M.REH 14:20
PROVIDERS: Family Medicine; Internal Medicine; ADMIT Physical Medicine & Rehabilitation
DX: S32.509A Unspecified fracture of unspecified pubis, initial encounter for closed fracture (principal); S32.10XA Unspecified fracture of sacrum, initial encounter for closed fracture; S32.049A Unspecified fracture of fourth lumbar vertebra, initial encounter for closed fracture; J44.9 Chronic obstructive pulmonary disease, unspecified; Z96.643 Presence of artificial hip joint, bilateral; G58.8 Other specified mononeuropathies; W18.39XA Other fall on same level, initial encounter; Y93.89 Activity, other specified; Y92.89 Other specified places as the place of occurrence of the external cause; Y99.8 Other external cause status; Z90.710 Acquired absence of both cervix and uterus; Z79.899 Other long term (current) drug therapy

== ENCOUNTER → 2018-06-04 | Outpatient (CLI) | payer MEDICARE ==
[~2018-06-04] MED LIST changes: +AMBIEN 5 MG TABL5 M1 PO; +CEFDINIR300 MG PO; +KEFLEX500 M1 PO; +LIDOCAINE PAIN1 EACH TOP; +METAMUCIL PACK3.4 GM PO; +REGLAN 10 MG TA10 MG PO
== END ==
LOC: M.MRI 06:48
DX: M47.26 Other spondylosis with radiculopathy, lumbar region (principal); M51.16 Intervertebral disc disorders with radiculopathy, lumbar region; M41.86 Other forms of scoliosis, lumbar region

== ENCOUNTER 2018-06-29 15:07 | Emergency (ER) | payer MEDICARE ==
[~2018-06-29] VITALS: Ht 160 cm; Wt 41.7 kg
[~2018-06-29 15:07] MED LIST changes: -AMBIEN 5 MG TABL5 M1 PO; -CEFDINIR300 MG PO; -KEFLEX500 M1 PO; -REGLAN 10 MG TA10 MG PO
[2018-06-29] MEDS ORDERED: AMBIEN 5 MG TABL5 M1 PO (15:15)
[2018-06-29] MEDS ORDERED: KEFLEX500 M1 PO (16:21)
[2018-06-29 16:41] VITALS: BP 170/72
== END 2018-06-29 16:42 | disposition home or self-care (01) ==
LOC: M.ERS 15:07
DX: S81.812A Laceration without foreign body, left lower leg, initial encounter (principal); S81.811A Laceration without foreign body, right lower leg, initial encounter; J44.9 Chronic obstructive pulmonary disease, unspecified; Z90.710 Acquired absence of both cervix and uterus; Z96.643 Presence of artificial hip joint, bilateral; W01.0XXA Fall on same level from slipping, tripping and stumbling without subsequent striking against object, initial encounter; Y93.89 Activity, other specified; Y92.89 Other specified places as the place of occurrence of the external cause; Y99.8 Other external cause status

== ENCOUNTER → 2018-07-01 | Outpatient (CLI) | payer MEDICARE ==
[~2018-07-01] MED LIST changes: +AMBIEN 5 MG TABL5 M1 PO; +CEFDINIR300 MG PO; +KEFLEX500 M1 PO; +REGLAN 10 MG TA10 MG PO
== END ==
LOC: M.WC 07:48
DX: I87.313 Chronic venous hypertension (idiopathic) with ulcer of bilateral lower extremity (principal); L97.812 Non-pressure chronic ulcer of other part of right lower leg with fat layer exposed; L97.822 Non-pressure chronic ulcer of other part of left lower leg with fat layer exposed; J44.9 Chronic obstructive pulmonary disease, unspecified; G47.33 Obstructive sleep apnea (adult) (pediatric); K59.04 Chronic idiopathic constipation; Z90.710 Acquired absence of both cervix and uterus; Z96.643 Presence of artificial hip joint, bilateral

== ENCOUNTER → 2018-07-08 | Outpatient (CLI) | payer MEDICARE ==
[~2018-07-08] MED LIST changes: -CEFDINIR300 MG PO; -REGLAN 10 MG TA10 MG PO
== END ==
LOC: M.WC 04:58
DX: S81.812D Laceration without foreign body, left lower leg, subsequent encounter (principal); S81.811D Laceration without foreign body, right lower leg, subsequent encounter; G47.33 Obstructive sleep apnea (adult) (pediatric); I10 Essential (primary) hypertension; J44.9 Chronic obstructive pulmonary disease, unspecified; K59.04 Chronic idiopathic constipation; Z96.643 Presence of artificial hip joint, bilateral; Z90.710 Acquired absence of both cervix and uterus; W19.XXXD Unspecified fall, subsequent encounter

== ENCOUNTER → 2018-07-15 | Outpatient (CLI) | payer MEDICARE | LOC: M.WC 05:12 | DX: I87.313 Chronic venous hypertension (idiopathic) with ulcer of bilateral lower extremity (principal); L97.811 Non-pressure chronic ulcer of other part of right lower leg limited to breakdown of skin; L97.822 Non-pressure chronic ulcer of other part of left lower leg with fat layer exposed; G47.33 Obstructive sleep apnea (adult) (pediatric); I10 Essential (primary) hypertension; J44.9 Chronic obstructive pulmonary disease, unspecified; K59.04 Chronic idiopathic constipation; Z96.643 Presence of artificial hip joint, bilateral ==

== ENCOUNTER → 2018-07-22 | Outpatient (CLI) | payer MEDICARE | LOC: M.WC 05:57 | DX: S81.811D Laceration without foreign body, right lower leg, subsequent encounter (principal); S81.812D Laceration without foreign body, left lower leg, subsequent encounter; G47.33 Obstructive sleep apnea (adult) (pediatric); I10 Essential (primary) hypertension; J44.9 Chronic obstructive pulmonary disease, unspecified; K59.04 Chronic idiopathic constipation; Z96.643 Presence of artificial hip joint, bilateral; X58.XXXD Exposure to other specified factors, subsequent encounter ==

== ENCOUNTER → 2018-07-29 | Outpatient (CLI) | payer MEDICARE | LOC: M.WC 04:40 | DX: S81.812D Laceration without foreign body, left lower leg, subsequent encounter (principal); S81.811D Laceration without foreign body, right lower leg, subsequent encounter; I10 Essential (primary) hypertension; K59.04 Chronic idiopathic constipation; G47.33 Obstructive sleep apnea (adult) (pediatric); J44.9 Chronic obstructive pulmonary disease, unspecified; Z96.643 Presence of artificial hip joint, bilateral; X58.XXXD Exposure to other specified factors, subsequent encounter ==

== ENCOUNTER → 2018-08-05 | Outpatient (CLI) | payer MEDICARE ==
[~2018-08-05] MED LIST changes: +CEFDINIR300 MG PO; +REGLAN 10 MG TA10 MG PO
== END ==
LOC: M.WC 02:47
DX: I87.312 Chronic venous hypertension (idiopathic) with ulcer of left lower extremity (principal); L97.828 Non-pressure chronic ulcer of other part of left lower leg with other specified severity; G47.33 Obstructive sleep apnea (adult) (pediatric); I10 Essential (primary) hypertension; J44.9 Chronic obstructive pulmonary disease, unspecified; K59.04 Chronic idiopathic constipation; Z96.643 Presence of artificial hip joint, bilateral

== ENCOUNTER 2018-08-20 18:52 | Inpatient (IN) | payer MEDICARE ==
[~2018-08-20] VITALS: Ht 160 cm; Wt 47.3 kg
[~2018-08-20 18:52] MED LIST changes: -CEFDINIR300 MG PO; -REGLAN 10 MG TA10 MG PO
[2018-08-20 18:59] VITALS: BP 166/74
[2018-08-20 19:22] LABS: ABSOLUTE BASOPHILS 0.2 thou/uL (0.0-0.2); ABSOLUTE LYMPHOCYTES 1.7 thou/uL (0.8-5.3); ABSOLUTE MONOCYTES 0.9 thou/uL (0.0-1.2); ABSOLUTE NEUTROPHILS 9.1 thou/uL (1.6-8.1); ANION GAP 10 mmol/L (7-16); BASOPHILS 1.3 %; BUN 27 mg/dL (7-18); CALCIUM 9.2 mg/dL (8.5-10.1); CHLORIDE 101 mmol/L (98-107); CO2 28 mmol/L (21-32); CREATININE 0.8 mg/dL (0.6-1.3); EOSINOPHILS 0.3 %; GLUCOSE 101 mg/dL (70-99); HEMATOCRIT 35.9 % (37.0-47.0); HEMOGLOBIN 11.2 gm/dL (12.0-15.0); LYMPHOCYTES 14.5 %; MCH 27.6 pg (26.0-34.0); MCHC 31.3 g/dL (28.0-37.0); MCV 88.4 fL (80.0-100.0); MONOCYTES 7.7 %; MPV 7.6 fl. (7.2-11.1); NUCLEATED RBCS 0 /100WBC; PLATELET COUNT* 270 thou/uL (150-400); POLYS 76.2 %; POTASSIUM 3.7 mmol/L (3.5-5.1); RBC 4.06 mil/uL (4.20-5.00); RDW-CV 17.3 % (10.5-14.5); SODIUM 139 mmol/L (136-145)
[2018-08-20 19:34] LABS: ALBUMIN 3.5 g/dL (3.4-5.0); ALKALINE PHOSPHATASE 75 U/L (46-116); LIPASE 112 U/L (73-393); SGOT 19 U/L (15-37); SGPT 17 U/L (30-65); TOTAL BILIRUBIN 0.4 mg/dL (<0.1-1.0); TOTAL PROTEIN 7.2 g/dL (6.4-8.2); TROPONIN-I LEVEL <0.06 ng/mL (<0.06)
[2018-08-20 21:40] LABS: URINE BILIRUBIN NEGATIVE (Negative); URINE BLOOD NEGATIVE (Negative); URINE CLARITY CLEAR; URINE COLOR YELLOW; URINE GLUCOSE-RANDOM NEGATIVE (Negative); URINE KETONES TRACE (Negative); URINE LEUKOCYTES-REFLEX NEGATIVE (Negative); URINE NITRITE-REFLEX NEGATIVE (Negative); URINE PROTEIN NEGATIVE (Negative); URINE SPECIFIC GRAVITY <= 1.005 (1.005-1.030); URINE UROBILINOGEN 0.2 E.U./dl (0.2-1.0)
[2018-08-20 23:15] VITALS: BP 175/95
[2018-08-20 23:20] VITALS: BP 179/78
[2018-08-21] VITALS (8 sets, daily range): BP systolic 127–193; BP diastolic 57–101
--- NOTE | 2018-08-21 10:14 | EKG ---
[place] [address] ELECTROCARDIOGRAM REPORT Name: MADIHA CAMERON Room: [address] ADM IN .R.#: [id number] Admission: 08/20/18 Attend Phys: Mckenzie Rodrigez MD Discharge: Date of : 34 Report #: [id number] THIS REPORT FOR: //name// [facility] ED Test Date: 2018-08-20 Test Time: 19:21:02 Pat Name: MADIHA CAMERON Department: Room: [facility] Gender: F Math Coach: Michael SOLIS : 1930 Requested By: Xochilt James Order Number: [id number] MD: Dima Veras Measurements Intervals [place] Rate: 78 P: 73 NV: 165 QRS: 7 QRSD: 81 T: 40 QT: 412 QTc: 470 Interpretive Statements Sinus rhythm Atrial premature complex Probable left atrial enlargement Abnormal R-wave progression, early transition Probable LVH with secondary repol abnrm Compared to ECG 05/12/2018 08:57:25 No significant changes Electronically Signed On 08-21-2018 10:14:42 MOUNTING MACHINE OPERATOR by Dima Veras [email or web address] <ELECTRONICALLY SIGNED> By: Dima Veras MD, FAC 08/21/18 1014 20 20 Dima Veras MD, FAC /EPI
[2018-08-22] VITALS: BP 151/47
[2018-08-22 04:00] VITALS: BP 130/66
[2018-08-22 04:34] LABS: ABSOLUTE BASOPHILS 0.1 thou/uL (0.0-0.2); ABSOLUTE EOSINOPHILS 0.1 thou/uL (0.0-0.7); ABSOLUTE LYMPHOCYTES 1.6 thou/uL (0.8-5.3); ABSOLUTE MONOCYTES 0.9 thou/uL (0.0-1.2); ABSOLUTE NEUTROPHILS 5.3 thou/uL (1.6-8.1); BASOPHILS 0.7 %; EOSINOPHILS 1.4 %; HEMATOCRIT 33.6 % (37.0-47.0); HEMOGLOBIN 10.7 gm/dL (12.0-15.0); LYMPHOCYTES 20.6 %; MCH 28.3 pg (26.0-34.0); MCHC 31.9 g/dL (28.0-37.0); MCV 88.6 fL (80.0-100.0); MONOCYTES 11.2 %; MPV 7.6 fl. (7.2-11.1); NUCLEATED RBCS 0 /100WBC; PLATELET COUNT* 218 thou/uL (150-400); POLYS 66.1 %; RDW-CV 17.2 % (10.5-14.5)
[2018-08-22 07:46] VITALS: BP 147/61
[2018-08-22 11:58] VITALS: BP 162/65
[2018-08-22 15:52] VITALS: BP 158/70
[2018-08-22 20:00] VITALS: BP 120/55
[2018-08-23] VITALS: BP 147/62
[2018-08-23 04:00] VITALS: BP 141/61
[2018-08-23 04:51] LABS: HEMATOCRIT 32.1 % (37.0-47.0); HEMOGLOBIN 10.3 gm/dL (12.0-15.0); MCH 28.5 pg (26.0-34.0); MCHC 32.1 g/dL (28.0-37.0); MCV 88.8 fL (80.0-100.0); MPV 7.3 fl. (7.2-11.1); RBC 3.61 mil/uL (4.20-5.00); RDW-CV 17.1 % (10.5-14.5); WBC 7.6 thou/uL (4.0-11.0)
[2018-08-23 05:17] LABS: CALCIUM 8.6 mg/dL (8.5-10.1); CREATININE 0.7 mg/dL (0.6-1.3); MAGNESIUM 1.9 mg/dL (1.8-2.4); POTASSIUM 3.1 mmol/L (3.5-5.1)
[2018-08-23 08:00] VITALS: BP 162/64
[2018-08-23 11:51] VITALS: BP 133/65
[2018-08-23 16:00] VITALS: BP 164/66
[2018-08-23 20:00] VITALS: BP 145/67
[2018-08-24] VITALS: BP 165/66
[2018-08-24 04:00] VITALS: BP 128/72; BP 143/59
[2018-08-24 08:00] VITALS: BP 144/71
[2018-08-24] MEDS ORDERED: REGLAN 10 MG TA10 MG PO (11:03)
[2018-08-24] MEDS ORDERED: CEFDINIR300 MG PO (11:04)
[2018-08-24 11:21] LABS: CALCIUM 9.2 mg/dL (8.5-10.1); CREATININE 0.8 mg/dL (0.6-1.3); MAGNESIUM 1.8 mg/dL (1.8-2.4); POTASSIUM 4.1 mmol/L (3.5-5.1)
[2018-08-24 12:00] VITALS: BP 130/53
[2018-08-24 12:21] VITALS: BP 144/71
== END 2018-08-24 13:15 | disposition home or self-care (01) | DRG 388 ==
LOC: M.ERS 18:52 → M.2W 21:18 → M.TBA-ER 21:18 → M.2W 22:18
PROVIDERS: Internal Medicine; Physician Assistant; ADMIT Internal Medicine
PROC: 0D9670Z Drainage of Stomach with Drainage Device, Via Natural or Artificial Opening (ICD-10-PCS; principal; 2018-08-20)
DX: K56.609 Unspecified intestinal obstruction, unspecified as to partial versus complete obstruction (principal); J15.6 Pneumonia due to other Gram-negative bacteria; J96.01 Acute respiratory failure with hypoxia; I10 Essential (primary) hypertension; K44.9 Diaphragmatic hernia without obstruction or gangrene; Z96.642 Presence of left artificial hip joint; Z90.710 Acquired absence of both cervix and uterus; Z79.2 Long term (current) use of antibiotics; Z79.899 Other long term (current) drug therapy

== ENCOUNTER → 2018-09-20 | Outpatient (CLI) | payer MEDICARE ==
[~2018-09-20] MED LIST changes: +CEFDINIR300 MG PO; +REGLAN 10 MG TA10 MG PO
== END ==
LOC: M.RAD 14:08
DX: M81.0 Age-related osteoporosis without current pathological fracture (principal); M85.89 Other specified disorders of bone density and structure, multiple sites; Z78.0 Asymptomatic menopausal state

== ENCOUNTER → 2018-10-21 | Outpatient (CLI) | payer MEDICARE | LOC: M.RAD 16:29 | DX: Z96.643 Presence of artificial hip joint, bilateral (principal); M25.551 Pain in right hip ==

== ENCOUNTER 2018-12-27 09:22 | Inpatient (IN) | payer MEDICARE ==
[~2018-12-27] VITALS: Ht 160 cm; Wt 50.3 kg
[2018-12-27 09:28] VITALS: BP 104/48
[2018-12-27] MEDS ORDERED: TOPROL XL25 MG PO (09:38)
[2018-12-27] MEDS ORDERED: ALENDRONATE SOD70 MG PO (09:38)
[2018-12-27] MEDS ORDERED: XANAX 0.5 MG0.5 MG PO (09:39)
[2018-12-27] MEDS ORDERED: NORVASC5 MG PO (09:39)
[2018-12-27] MEDS ORDERED: TYLENOL EXTRA500 MG PO (09:40)
[2018-12-27 10:06] LABS: ABSOLUTE EOSINOPHILS 0.1 thou/uL (0.0-0.7); ABSOLUTE LYMPHOCYTES 1.2 thou/uL (0.8-5.3); ABSOLUTE MONOCYTES 1.2 thou/uL (0.0-1.2); ABSOLUTE NEUTROPHILS 6.7 thou/uL (1.6-8.1); BASOPHILS 0.5 %; EOSINOPHILS 1.5 %; HEMATOCRIT 38.3 % (37.0-47.0); HEMOGLOBIN 12.6 gm/dL (12.0-15.0); LYMPHOCYTES 13.1 %; MCH 30.3 pg (26.0-34.0); MCHC 32.8 g/dL (28.0-37.0); MCV 92.2 fL (80.0-100.0); MONOCYTES 12.5 %; MPV 7.8 fl. (7.2-11.1); NUCLEATED RBCS 0 /100WBC; PLATELET COUNT* 260 thou/uL (150-400); POLYS 72.4 %; RBC 4.15 mil/uL (4.20-5.00); RDW-CV 14.9 % (10.5-14.5); WBC 9.3 thou/uL (4.0-11.0)
[2018-12-27 10:20] LABS: ANION GAP 9 mmol/L (7-16); BUN 14 mg/dL (7-18); CALCIUM 8.8 mg/dL (8.5-10.1); CHLORIDE 101 mmol/L (98-107); CO2 31 mmol/L (21-32); CREATININE 0.9 mg/dL (0.6-1.3); GLUCOSE 104 mg/dL (70-99); POTASSIUM 3.7 mmol/L (3.5-5.1); SODIUM 141 mmol/L (136-145); TROPONIN-I LEVEL <0.06 ng/mL (<0.06)
[2018-12-27 10:21] LABS: ALBUMIN 3.1 g/dL (3.4-5.0); ALKALINE PHOSPHATASE 87 U/L (46-116); NT-PRO BRAIN NAT PEPTIDE 622 pg/mL (<300); SGOT 19 U/L (15-37); SGPT 23 U/L (30-65); TOTAL BILIRUBIN 0.5 mg/dL (<0.1-1.0); TOTAL PROTEIN 7.3 g/dL (6.4-8.2)
[2018-12-27 17:39] VITALS: BP 114/39
--- NOTE | 2018-12-27 17:59 | EKG ---
[place] [address] ELECTROCARDIOGRAM REPORT Name: MADIHA CAMERON Room: [place] [address] ADM IN .R.#: [id number] Admission: 12/27/18 Attend Phys: Mary Powell Discharge: Date of : 34 Report #: [id number] THIS REPORT FOR: //name// [facility] ED Test Date: 2018-12-27 Test Time: 09:56:37 Pat Name: MADIHA CAMERON Department: Room: [facility] Gender: F Store Sales Consultant: MEKHI : 1930 Requested By: Paco Orantes Order Number: [id number] MD: Dima Veras Measurements Intervals [place] Rate: 88 P: 47 RI: 157 QRS: 25 QRSD: 92 T: 70 QT: 369 QTc: 447 Interpretive Statements Sinus rhythm Probable left atrial enlargement Abnormal R-wave progression, early transition LVH with secondary repolarization abnormality Compared to ECG 08/20/2018 19:21:02 Atrial premature complex(es) no longer present Electronically Signed On 12-27-2018 17:59:09 CDT by Dima Veras [email or web address] <ELECTRONICALLY SIGNED> By: Dima Veras MD, FAC 12/27/18 1759 0956 0956 Dima Veras MD, [facility] /EPI
[2018-12-27 18:00] VITALS: BP 112/51
[2018-12-27 19:10] VITALS: BP 115/54
[2018-12-28] VITALS: BP 127/58
[2018-12-28 03:42] VITALS: BP 131/64
--- NOTE | 2018-12-28 03:53 | NUR ---
INITIAL ASSESSMENT COPLETED CHARTED AT START OF SHIFT. TRACING SR ON MONITOR. VSS. PT DENIES PAIN, SOA, N/V/D. PT UP WITH SBA TO BR, STEADY GAIT. HOURLY ROUNDING AND FALL PRECAUTIONS IN PLACE. CLWR.
[2018-12-28 08:00] VITALS: BP 126/59
[2018-12-28 12:26] VITALS: BP 123/50
--- NOTE | 2018-12-28 12:29 | NUR ---
Pt is A&O. Resides at home alone. Independent and active, continues to cook, clean and drive short distances. Supportive family that is involved and available to assist as needed. Pt has a home neb, no other DME, Pt anticipates that she will need home o2 at some point. Hx of [facility]. No hx of SNF. Goal is home at dc, no needs anticipated.
[2018-12-28 17:09] VITALS: BP 128/54
[2018-12-28 20:59] VITALS: BP 132/64
[2018-12-29] VITALS: BP 135/66
[2018-12-29 04:00] VITALS: BP 151/63
--- NOTE | 2018-12-29 05:35 | NUR ---
PT IS ABLE TO COMMUNICATE HER NEEDS TO STAFF EFFECTIVELY. SHE HAS DENIED THE NEED FOR PAIN MEDICATION UP TO THIS TIME. POSSIBLE DISCHARGE LATER TODAY.
[2018-12-29 08:08] VITALS: BP 130/53
--- NOTE | 2018-12-29 10:36 | NUR ---
PT A/O. TELE TRACKING NSR WITH OCCASIONAL PAC'S. VSS ON 2L. DENIES CP, SOA. PT LOOKING FORWARD TO DISCHARGE HOME. EDUCATED ON SAFETY AND PLAN OF CARE. PLEASE SEE ASSESSMENT FOR ADDITIONAL INFORMATION. WILL CONTINUE TO MONITOR
[2018-12-29] MEDS ORDERED: PREDNISONE 10 M10 MG PO (11:35)
[2018-12-29] MEDS ORDERED: SINGULAIR 10 MG10 M1 PO (11:45)
[2018-12-29 12:00] VITALS: BP 126/60
[2018-12-29] MEDS ORDERED: LEVAQUIN 750 M750 MG PO (13:02)
[2018-12-29 13:11] VITALS: BP 126/60
== END 2018-12-29 14:00 | disposition home or self-care (01) | DRG 177 ==
LOC: M.ERS 09:22 → M.2W 11:50 → M.TBA-ER 11:50 → M.2W 18:18
PROVIDERS: Emergency Medicine Emergency Medical Services; ADMIT Internal Medicine
DX: J15.6 Pneumonia due to other Gram-negative bacteria (principal); J80 Acute respiratory distress syndrome; J44.0 Chronic obstructive pulmonary disease with (acute) lower respiratory infection; J44.1 Chronic obstructive pulmonary disease with (acute) exacerbation; Z96.643 Presence of artificial hip joint, bilateral; I27.20 Pulmonary hypertension, unspecified; Z90.710 Acquired absence of both cervix and uterus; Z79.899 Other long term (current) drug therapy

== ENCOUNTER 2019-01-23 11:47 | Observation (INO) | payer MEDICARE ==
[~2019-01-23] VITALS: Ht 152.4 cm; Wt 45.4 kg
[~2019-01-23 11:47] MED LIST changes: +ALENDRONATE SOD70 MG PO; +IPRATROPIU0.2 MG/1 M INH; +LEVAQUIN 750 M750 MG PO; +SINGULAIR 10 MG10 M1 PO; +TYLENOL EXTRA500 MG PO
[2019-01-23 11:53] VITALS: BP 160/65
--- NOTE | 2019-01-23 13:46 | NUR ---
THIS NURSE ASSUMED PT CARE AT THIS TIME. REPORT GIVEN TO THIS NURSE BY VIN VU.
[2019-01-23 14:02] LABS: WBC 15.5 thou/uL (4.0-11.0)
[2019-01-23 14:03] LABS: ABSOLUTE EOSINOPHILS 0.1 thou/uL (0.0-0.7); ABSOLUTE LYMPHOCYTES 2.5 thou/uL (0.8-5.3); ABSOLUTE MONOCYTES 1.1 thou/uL (0.0-1.2); ABSOLUTE NEUTROPHILS 11.7 thou/uL (1.6-8.1); BASOPHILS 0.2 %; EOSINOPHILS 0.7 %; HEMATOCRIT 36.9 % (37.0-47.0); LYMPHOCYTES 15.9 %; MCH 29.8 pg (26.0-34.0); MCHC 32.6 g/dL (28.0-37.0); MCV 91.3 fL (80.0-100.0); MONOCYTES 7.4 %; MPV 6.9 fl. (7.2-11.1); NUCLEATED RBCS 0 /100WBC; PLATELET COUNT* 261 thou/uL (150-400); POLYS 75.8 %; RBC 4.04 mil/uL (4.20-5.00); RDW-CV 15.8 % (10.5-14.5)
[2019-01-23 14:15] LABS: ALBUMIN 3.1 g/dL (3.4-5.0); CALCIUM 8.8 mg/dL (8.5-10.1); CREATININE 1.1 mg/dL (0.6-1.3); POTASSIUM 3.7 mmol/L (3.5-5.1); TOTAL BILIRUBIN 0.3 mg/dL (<0.1-1.0); TOTAL PROTEIN 6.1 g/dL (6.4-8.2)
[2019-01-23 14:29] VITALS: BP 131/47
[2019-01-23 15:55] VITALS: BP 136/49
--- NOTE | 2019-01-23 17:02 | NUR ---
PT ARRIVED FROM ED AROUND 1445. VITALS STABLE. A&Ox4. MINIMAL PAIN, DENIED PAIN MEDICATIONS. DENIED NAUSEA. ON 2LO2. IV IN R FA PATENT, SL. PT GAIT IS STEADY. EDUCATED ON FALL RISKS. ADMIT COMPLETE. TOLERATING REGULAR DIET. WILL BE NPO AFTER MIDNIGHT. CALL LIGHT WITHIN REACH. WILL CONTINUE TO MONITOR.
[2019-01-23 19:15] VITALS: BP 123/57
--- NOTE | 2019-01-24 06:38 | NUR ---
PT NPO AFTER MIDNIGHT PER ORDERS FOR POSSIBLE VERTIBRALPLASTY. NO PAIN MEDS GIVEN DURING NIGHT. PT UP WITH STANDBY ASSIST TO RESTROOM. PT USING WALKER TO AMBULATE. DISCUSSED POSSIBLE PROCEEDURE TODAY WITH PT. NURSING HIGH SCHOOL PROFESSIONAL NOTIFIED REGARDING IR CONSULT. HIGH SCHOOL PROFESSIONAL LE BARLOW MAKING ARRANGEMENTS WITH IR.
[2019-01-24 08:00] VITALS: BP 143/56
[2019-01-24 08:59] LABS: APTT 23.7 Seconds (25.0-31.3); PROTIME 9.8 Seconds (9.20-11.50)
--- NOTE | 2019-01-24 09:19 | NUR ---
INITIAL ASSESSMENT: Pt evaluated for d/c planning needs. Reviewed chart and spoke with nurse and pt's son. Pt is alert and oriented and lives alone in house. Pt was independent with ADL's and was still driving. Pt's son said that he tries to visit pt daily and drive her where she wants to go so that she does not drive. Pt has walker, cane and nebulizer at home, but does not use walker or cane on a regular basis. Pt has had [facility] in the past. Pt is hopeful she will be able to return home on d/c from hospital. Will remain available to assist as needed.
--- NOTE | 2019-01-24 13:08 | EKG ---
[place] [address] ELECTROCARDIOGRAM REPORT Name: MADIHA CAMERON Room: [address] ADM IN M.R.#: [id number] Admission: 01/23/19 Attend Phys: Marita Alexander Discharge: Date of : 34 Report #: [id number] THIS REPORT FOR: //name// [facility] ED Test Date: 2019-01-23 Test Time: 13:37:36 Pat Name: MADIHA CAMERON Department: Room: [facility] Gender: F Information Technology Security Analyst: Carter MARSHALL : 1930 Requested By: Xochilt James Order Number: [id number] MD: Dima Veras Measurements Intervals [place] Rate: 60 P: 55 MA: 156 QRS: 30 QRSD: 90 T: 73 QT: 453 QTc: 453 Interpretive Statements Sinus rhythm Abnormal R-wave progression, early transition Probable LVH with secondary repol abnrm Compared to ECG 12/27/2018 09:56:37 No significant changes Electronically Signed On 01-24-2019 13:07:51 CDT by Dima Veras [email or web address] <ELECTRONICALLY SIGNED> By: Dima Veras MD, [facility] 01/24/19 1307 1337 1337 Dima Veras MD, [facility] /EPI
[2019-01-24 13:50] VITALS: BP 143/56
[2019-01-24 13:50] LABS: URINE BILIRUBIN NEGATIVE (Negative); URINE BLOOD NEGATIVE (Negative); URINE CLARITY CLEAR; URINE COLOR YELLOW; URINE GLUCOSE-RANDOM NEGATIVE (Negative); URINE KETONES NEGATIVE (Negative); URINE LEUKOCYTES-REFLEX 1+ (Negative); URINE NITRITE-REFLEX NEGATIVE (Negative); URINE PROTEIN NEGATIVE (Negative); URINE SPECIFIC GRAVITY 1.015 (1.005-1.030); URINE UROBILINOGEN 0.2 E.U./dl (0.2-1.0)
[2019-01-24 14:01] LABS: SQUAMOUS 0-3 Few /LPF (0-3); URINE RBC 0-2 Rare /HPF (0-2); URINE WBC-REFLEX 6-15 Few /HPF (0-5)
[2019-01-24 14:02] LABS: BACTERIA-REFLEX 1-9 Few /HPF (None Seen); CASTS None Seen /LPF (None Seen); CRYSTALS None Seen /LPF (None Seen)
[2019-01-24] MEDS ORDERED: REGLAN 10 MG TA10 MG PO (15:50)
[2019-01-24] MEDS ORDERED: MIRALAX17 GM PO (15:51)
[2019-01-24] MEDS ORDERED: BACTRIM DS TAB1 EACH PO (15:52)
[2019-01-24 15:58] VITALS: BP 143/56
--- NOTE | 2019-01-24 17:38 | NUR ---
PT DISCHARGED TO HOME WITH SON, WALKED OUT BY NURSING STAFF TO PERSONAL VEHICLE. PERSONAL BELONGINGS WITH PT. PT AND OT CLEARED PT FOR DISCHARGE. IV OUT. PAPER PRESCRIPTIONS AND CARE NOTES GIVEN. PT STABLE AND DENIED PAIN UPON DISCHARGE.
== END 2019-01-24 17:15 | disposition home or self-care (01) ==
LOC: M.ERS 11:47 → M.TBA-ER 13:25 → M.ORTHSURG 13:25
PROVIDERS: Physician Assistant; Radiology Diagnostic Radiology; ADMIT Internal Medicine
DX: S32.038A Other fracture of third lumbar vertebra, initial encounter for closed fracture (principal); J96.11 Chronic respiratory failure with hypoxia; E44.0 Moderate protein-calorie malnutrition; N39.0 Urinary tract infection, site not specified; K31.84 Gastroparesis; J44.9 Chronic obstructive pulmonary disease, unspecified; Z79.899 Other long term (current) drug therapy; Z96.643 Presence of artificial hip joint, bilateral; Z98.890 Other specified postprocedural states; Z90.710 Acquired absence of both cervix and uterus; Z90.49 Acquired absence of other specified parts of digestive tract; Z90.89 Acquired absence of other organs; X50.1XXA Overexertion from prolonged static or awkward postures, initial encounter; Y93.H2 Activity, gardening and landscaping; Y92.89 Other specified places as the place of occurrence of the external cause

== ENCOUNTER 2019-09-04 12:28 | Observation (INO) | payer MEDICARE ==
[~2019-09-04] VITALS: Ht 160 cm; Wt 50.3 kg
[~2019-09-04 12:28] MED LIST changes: +BACTRIM DS TAB1 EACH PO
[2019-09-04 12:33] VITALS: BP 163/80
[2019-09-04 13:09] LABS: ABSOLUTE BASOPHILS 0.1 thou/uL (0.0-0.2); ABSOLUTE EOSINOPHILS 0.1 thou/uL (0.0-0.7); ABSOLUTE LYMPHOCYTES 1.6 thou/uL (0.8-5.3); ABSOLUTE MONOCYTES 0.7 thou/uL (0.0-1.2); ABSOLUTE NEUTROPHILS 3.6 thou/uL (1.6-8.1); EOSINOPHILS 1.4 %; HEMATOCRIT 38.4 % (37.0-47.0); HEMOGLOBIN 12.8 gm/dL (12.0-15.0); LYMPHOCYTES 26.6 %; MCH 31.1 pg (26.0-34.0); MCHC 33.3 g/dL (28.0-37.0); MCV 93.4 fL (80.0-100.0); MONOCYTES 11.4 %; MPV 7.3 fl. (7.2-11.1); NUCLEATED RBCS 0 /100WBC; PLATELET COUNT* 238 thou/uL (150-400); POLYS 59.6 %; RBC 4.11 mil/uL (4.20-5.00); RDW-CV 14.3 % (10.5-14.5)
[2019-09-04 13:23] LABS: CALCIUM 8.5 mg/dL (8.5-10.1); CREATININE 0.8 mg/dL (0.6-1.3); POTASSIUM 4.3 mmol/L (3.5-5.1)
[2019-09-04 13:28] LABS: ALBUMIN 3.3 g/dL (3.4-5.0); MAGNESIUM 1.9 mg/dL (1.8-2.4); TOTAL BILIRUBIN 0.4 mg/dL (<0.1-1.0); TOTAL PROTEIN 6.7 g/dL (6.4-8.2)
[2019-09-04 15:20] VITALS: BP 111/78
--- NOTE | 2019-09-04 19:53 | NUR ---
PT ARRIVED FROM ER AROUND 1630. ASSESSMENT COMPLETED CHARTED. ABLE TO MAKE NEEDS KNOWN. UP SBA TO BATHROOM. C/O SLIGHT CHEST PRESSURE. PUT O2 ON PT, RESTING IN RECLINER MOST OF THE NIGHT. PAPERWORK SIGNED. VSS. WILL CONTINUE TO MONITOR.
[2019-09-04 20:00] VITALS: BP 106/45
[2019-09-05] VITALS: BP 119/61
[2019-09-05 04:00] VITALS: BP 125/45
[2019-09-05 04:46] LABS: HEMATOCRIT 37.6 % (37.0-47.0); HEMOGLOBIN 12.4 gm/dL (12.0-15.0); MCH 30.8 pg (26.0-34.0); MCHC 32.9 g/dL (28.0-37.0); MCV 93.8 fL (80.0-100.0); MPV 7.3 fl. (7.2-11.1); RBC 4.01 mil/uL (4.20-5.00); RDW-CV 14.2 % (10.5-14.5); WBC 6.6 thou/uL (4.0-11.0)
--- NOTE | 2019-09-05 04:52 | NUR ---
ASSUMED PT CARE AT APPROX 1930. PT IS AWAKE AND ORIENTED X4. VSS ON 2L OF O2/NC. 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 PT DENIES CHEST PAIN/DISCOMFORT. ASSESSMENT DONE AND CHARTED. CALL LIGHT WITHIN REACH. HIGH FALL PRECAUTIONS IN PLACE. HOURLY ROUNDING DONE FOR PT SAFETY.
[2019-09-05 05:02] LABS: CALCIUM 8.3 mg/dL (8.5-10.1); CREATININE 0.9 mg/dL (0.6-1.3); POTASSIUM 3.6 mmol/L (3.5-5.1)
[2019-09-05 08:00] VITALS: BP 116/55
--- NOTE | 2019-09-05 09:26 | NUR ---
Pt is A&O. Resides at home alone. Independent, continues to cook and clean, family provides transportation. Pt has a walker, cane and wc at home, but does not currently use any DME. Has home neb. Hx of [facility]. No hx of SNF. Pt states that she anticipates that she will dc to home later today, being some testing. No needs. Son will transport.
[2019-09-05 11:30] VITALS: BP 105/52
[2019-09-05 13:23] VITALS: BP 105/52
--- NOTE | 2019-09-05 14:11 | 2DMMODE ---
[place] [address] 2 D/M-MODE ECHOCARDIOGRAM Name: MATYELADIOMADIHA ORESTES Room: [address] Mely Kessler#: [id number] Admission: 09/04/19 Attend Phys: Duc wilder Sa Discharge: Date of : 34 Date of Service: 09/05/19 1410 Report #: [id number] THIS REPORT FOR: //name// APPROVED REPORT Study performed: 09/05/2019 10:28:19 EXAM: Comprehensive 2D, Doppler, and color-flow Echocardiogram Patient Location: In-Patient Room #: 222 Status: routine BSA: 1.50 HR: 88 bpm BP: 116/55 mmHg Rhythm: NSR Other Information Study Quality: Good Indications Dyspnea 2D Dimensions IVSd: 14.03 (7-11mm) LVOT Diam: 20.54 (18-24mm) LVDd: 30.73 mm PWd: 10.25 (7-11mm) Ascending Ao: 32.41 (22-36mm) LVDs: 19.46 (25-40mm) Aortic Root: 29.69 mm Volumes Left Atrial Volume (Systole) LA ESV Index: 37.20 mL/m2 Aortic Valve AoV Peak Foster.: 1.38 m/s AO Peak Gr.: 7.56 mmHg LVOT Max P.91 mmHg AO Mean Gr.: 3.78 mmHg LVOT Mean P.40 mmHg LVOT Max V: 1.31 m/s AO V2 VTI: 26.57 cm LVOT Mean V: 0.85 m/s LIZBETH (VTI): 3.02 cm2 LVOT V1 VTI: 24.26 cm AI Yolo: 2.86 m/s2 AI PHT: 391.51 ms Mitral Valve E/A Ratio: 0.83 [place] [address] 2 D/M-MODE ECHOCARDIOGRAM Name: MADIHA CAMERON Room: [address] [place]#: [id number] Admission: 09/04/19 Attend Phys: Duc wilder Sa Discharge: Date of : 34 Date of Service: 09/05/19 1410 Report #: [id number] MV Decel. Time: 283.86 ms MV E Max Foster.: 0.79 m/s MV PHT: 82.32 ms MVA (PHT): 2.67 cm2 TDI E/Lateral E': 11.29 E/Medial E': 13.17 Medial E' Foster.: 0.06 m/s Lateral E' Foster.: 0.07 m/s Pulmonary Valve PV Peak Foster.: 1.20 m/s PV Peak Gr.: 5.80 mmHg Tricuspid Valve RAP Estimate: 5.00 mmHg TR Peak Gr.: 33.70 mmHg RVSP: 38.00 mmHg PA Pressure: 38.00 mmHg Left Ventricle The left ventricle is normal size. There is normal LV segmental wall motion. There is normal left ventricular wall thickness. Left ventricular systolic function is normal. The left ventricular ejection fraction is within the normal range. LVEF is 65%. Grade I - abnormal relaxation pattern. Right Ventricle The right ventricle is normal size. The right ventricular systolic function is normal. Atria Left atrium is mildly dilated. The right atrium size is normal. Aortic Valve Aortic valve leaflets are mildly thickened. Mild to moderate aortic regurgitation. There is no aortic valvular stenosis. Mitral Valve The mitral valve is normal in structure. There is no mitral valve regurgitation noted. No evidence of mitral valve stenosis. Tricuspid Valve The tricuspid valve is normal in structure. Trace tricuspid regurgitation. Mild pulmonary hypertension[place] [address] 2 D/M-MODE ECHOCARDIOGRAM Name: MADIHA CAMERON Room: [address] M.R.#: [id number] Admission: 09/04/19 Attend Phys: Duc wilder Sa Discharge: Date of : 34 Date of Service: 09/05/19 1410 Report #: [id number] The pulmonary valve is normal in structure. There is no pulmonic valvular regurgitation. Great Vessels The aortic root is normal in size. IVC is normal in size and collapses >50% with inspiration. Pericardium There is no pericardial effusion. <Conclusion> There is normal left ventricular wall thickness. Left ventricular systolic function is normal. The left ventricular ejection fraction is within the normal range. LVEF is 65%. Grade I - abnormal relaxation pattern. The right ventricle is normal size. Left atrium is mildly dilated. Aortic valve leaflets are mildly thickened. Mild to moderate aortic regurgitation. There is no aortic valvular stenosis. The mitral valve is normal in structure. The tricuspid valve is normal in structure. IVC is normal in size and collapses >50% with inspiration. There is no pericardial effusion. There is normal LV segmental wall motion. <ELECTRONICALLY SIGNED> By: Lamont Murdock MD, FACC 09/05/19 1410 141 09 Lamont Murdock MD, FACC /INF
[2019-09-05 14:12] VITALS: BP 105/52
--- NOTE | 2019-09-05 15:47 | NUR ---
ASSUMED PT CARE AT 0730. ASSESSMENT COMPLETED CHARTED. ABLE TO MAKE NEEDS KNOWN. DISCHARGE APPROVED. IV AND HEART MONITOR REMOVED. UP AD LORENZO. NO C/O PAIN OR DISCOMFORT. SON AT BEDSIDE. DISCHARGE PAPER WENT OVER AND UNDERSTOOD BY PT. PT NEEDED O2 FOR HOME USE, TAKEN WITH PT AND ALL BELONGINGS TAKEN TOO. PT TAKEN DOWN TO SON'S CAR AT 1548 BY WHEELCHAIR WITH SON AND RUGBY LEAGUE FOOTBALLER. NO COMMENTS, QUESTIONS, OR CONCERNS NOTED.
--- NOTE | 2019-09-06 10:47 | EKG ---
[place] [address] ELECTROCARDIOGRAM REPORT Name: MADIHA CAMERON Room: [address] M.R.#: [id number] Admission: 09/04/19 Attend Phys: Duc Arvizu Discharge: 09/05/19 Date of : 34 Report #: [id number] THIS REPORT FOR: //name// [facility] ED Test Date: 2019-09-04 Test Time: 12:40:58 Pat Name: MADIHA CAMERON Department: Room: [facility] Gender: F Assistant Distribution Manager: : 1930 Requested By: Paco Orantes Order Number: [id number] MD: Sudarshan Root Measurements Intervals [place] Rate: 75 P: 55 [place]: 171 QRS: 27 QRSD: 92 T: 65 QT: 403 QTc: 451 Interpretive Statements Sinus rhythm Probable left atrial enlargement Abnormal R-wave progression, early transition Probable left ventricular hypertrophy with repolarization abnormality Compared to ECG 01/23/2019 13:37:36 No significant changes Electronically Signed On 09-06-2019 10:47:23 FIELD INSTALLATION TECHNICIAN by Sudarshan Root [email or web address] <ELECTRONICALLY SIGNED> By: Sudarshan Root MD, FACC 09/06/19 1047 1240 1240 Sudarshan Root MD, FAC /EPI
== END 2019-09-05 15:50 | disposition home or self-care (01) ==
LOC: M.ERS 12:28 → M.TBA-ER 13:50 → M.2W 13:50
PROVIDERS: Emergency Medicine Emergency Medical Services; ADMIT Family Medicine
DX: R07.89 Other chest pain (principal); I10 Essential (primary) hypertension; K21.9 Gastro-esophageal reflux disease without esophagitis; R79.89 Other specified abnormal findings of blood chemistry; J44.9 Chronic obstructive pulmonary disease, unspecified; M81.0 Age-related osteoporosis without current pathological fracture; K31.84 Gastroparesis; J80 Acute respiratory distress syndrome; R09.02 Hypoxemia; Z90.710 Acquired absence of both cervix and uterus; Z90.49 Acquired absence of other specified parts of digestive tract

== ENCOUNTER 2019-11-19 02:30 | Inpatient (IN) | payer MEDICARE ==
[~2019-11-19] VITALS: Ht 160 cm; Wt 51.7 kg
[2019-11-19] VITALS (8 sets, daily range): BP systolic 117–150; BP diastolic 51–68
[2019-11-19] MEDS ORDERED: TOPROL XL25 MG PO (02:55)
[2019-11-19 02:59] LABS: ABSOLUTE BASOPHILS 0.1 thou/uL (0.0-0.2); ABSOLUTE EOSINOPHILS 0.1 thou/uL (0.0-0.7); ABSOLUTE LYMPHOCYTES 1.5 thou/uL (0.8-5.3); ABSOLUTE MONOCYTES 0.6 thou/uL (0.0-1.2); ABSOLUTE NEUTROPHILS 5.7 thou/uL (1.6-8.1); BASOPHILS 0.7 %; HEMATOCRIT 36.1 % (37.0-47.0); HEMOGLOBIN 12.2 gm/dL (12.0-15.0); LYMPHOCYTES 19.3 %; MCH 31.4 pg (26.0-34.0); MCHC 33.9 g/dL (28.0-37.0); MCV 92.7 fL (80.0-100.0); MPV 7.4 fl. (7.2-11.1); NUCLEATED RBCS 0 /100WBC; PLATELET COUNT* 246 thou/uL (150-400); RBC 3.89 mil/uL (4.20-5.00); RDW-CV 14.1 % (10.5-14.5)
[2019-11-19 03:15] LABS: CALCIUM 8.3 mg/dL (8.5-10.1); CREATININE 0.8 mg/dL (0.6-1.3); POTASSIUM 3.7 mmol/L (3.5-5.1)
[2019-11-19 03:16] LABS: APTT 24.8 Seconds (25.0-31.3); PROTIME 10.1 Seconds (9.20-11.50)
[2019-11-19 03:25] LABS: ALBUMIN 3.5 g/dL (3.4-5.0); MAGNESIUM 1.8 mg/dL (1.8-2.4); TOTAL BILIRUBIN 0.3 mg/dL (<0.1-1.0); TOTAL PROTEIN 6.7 g/dL (6.4-8.2)
--- NOTE | 2019-11-19 07:51 | NUR ---
REPORT RECIEVED FROM ED. ADMISSION DOCUMENTED. PT ORIENTED TO ROOM, FALL AGREEMENT SIGNED. O2 ON 3L NC. REPORT GIVEN TO ONCOMING RN. WILL CONTINUE WITH PLAN OF CARE.
[2019-11-19] MEDS ORDERED: IPRAT-ALBUT 0.5-3 ML INH (09:55)
[2019-11-19] MEDS ORDERED: ALBUTEROL2.5 MG/3 M INH (09:58)
[2019-11-19] MEDS ORDERED: MIRALAX119 GM PO (12:47)
[2019-11-19] MEDS ORDERED: METAMUCIL1 EAC1 PO (12:47)
--- NOTE | 2019-11-19 19:03 | NUR ---
RECEIVED REPORT FROM OLEG BANUELOS. ASSUMED CARE OF PT AROUND 0730. PT A&O X4. DEVELOPMENTAL SPECIALIST IN PLACE TRACING SR WITH SOME PACS. AM ASSESSMENT AND VITALS COMPLETED CHARTED. MEDS PER EMAR. CARDIOLOGY TO SEE TOMORROW. PT HAS DENIED CHEST PAIN THIS SHIFT. PT UP AD LORENZO. VOIDING WITHOUT ISSUE. ALL NEEDS MET AT THIS TIME. LOW FALL RISK PRECAUTIONS IN PLACE. CALL LIGHT IS WITHIN REACH. HOURLY ROUNDING PERFROMED.
[2019-11-20 04:53] VITALS: BP 134/53
--- NOTE | 2019-11-20 07:08 | NUR ---
PT SLEPT MOST OF SHIFT. ASSESSMENT DOCUMENTED. MEDS GIVEN PER E-DEC. IV PATENT. NO REPORTS OF PAIN THIS SHIFT. WILL CONTINUE WITH PLAN OF CARE.
[2019-11-20 09:00] VITALS: BP 132/51
[2019-11-20 12:00] VITALS: BP 139/54
--- NOTE | 2019-11-20 15:04 | EKG ---
[place] [address] ELECTROCARDIOGRAM REPORT Name: KRZYSZTOFZAYMADIHA ORESTES Room: [address] ADM IN M.R.#: [id number] Admission: 11/19/19 Attend Phys: Duc wilder Sa Discharge: Date of : 34 Date of Service: 11/19/19 0235 Report #: [id number] THIS REPORT FOR: //name// [facility] ED Test Date: 2019-11-19 Test Time: 02:35:01 Pat Name: MADIHA CAMERON Department: Room: [facility] Gender: F Ambulatory Nurse: ALYSE : 1930 Requested By: Paco Orantes Order Number: [id number] MD: Blane Patel Measurements Intervals [place] Rate: 102 P: 70 [place]: 161 QRS: 38 QRSD: 83 T: 95 QT: 362 QTc: 472 Interpretive Statements Sinus tachycardia Ventricular premature complex Probable left atrial enlargement Probable LVH with secondary repol abnrm Tall R wave in V2, consider RVH or PMI Compared to ECG 09/04/2019 12:40:58 Ventricular premature complex(es) now present Myocardial infarct finding now present Sinus rhythm no longer present Electronically Signed On 11-20-2019 15:03:42 TELESCOPE OPERATOR by Blane Patel [email or web address] <ELECTRONICALLY SIGNED> By: Gerardo Patel MD, [facility] 11/20/19 1503 4 4 Gerardo Patel MD, [facility] /EPI
[2019-11-20 16:00] VITALS: BP 132/63
[2019-11-20 16:32] VITALS: BP 144/57
--- NOTE | 2019-11-20 16:32 | NUR ---
PATIENT REQUESTED BLOOD PRESSURE CHECK. PATIENT STATES "I FEEL TENSION. DO YOU HAVE ANYTHING TO RELAX ME?" PATIENT STATES "I FEEL SOME CHEST PRESSURE." VS: BP 144/57, MAP 88, P 82, R 16, T 98.2. PETROLEUM REFINERY LABORER: SR. PRN MED BENADRYL GIVEN PER DEC. PATIENT'S BED LOW, CALL LIGHT IN REACH. HOURLY ROUNDING FOR SAFETY AND PATIENT NEEDS.
[2019-11-20 19:40] VITALS: BP 141/58
[2019-11-21] VITALS (7 sets, daily range): BP systolic 114–128; BP diastolic 52–67
--- NOTE | 2019-11-21 06:53 | NUR ---
VSS. SEE MAR. SEE CHARTING. HOURLY ROUNDING FOR SAFETY.
--- NOTE | 2019-11-21 15:40 | NUR ---
pt not in her room, per pt's son, Steven, pt "is at stress test or something like that."
--- NOTE | 2019-11-21 16:00 | 2DMMODE ---
[place] [address] 2 D/M-MODE ECHOCARDIOGRAM Name: KRZYSZTOFZAYMADIHAAN Room: [address] IN M.R.#: [id number] Admission: 11/19/19 Attend Phys: Duc iwlder Sa Discharge: Date of : 34 Date of Service: 11/21/19 1559 Report #: [id number] THIS REPORT FOR: cc: Jameel Rogers MD, Dean L. MD Holkins, John M. MD [facility] ~ APPROVED REPORT Study performed: 11/21/2019 10:57:55 EXAM: Comprehensive 2D, Doppler, and color-flow Echocardiogram Patient Location: Bedside BSA: 1.45 HR: 87 bpm BP: 127/67 mmHg Other Information Study Quality: Good Indications Chest Pain 2D Dimensions IVSd: 10.61 (7-11mm) LVOT Diam: 17.52 (18-24mm) LVDd: 26.45 mm PWd: 8.64 (7-11mm) Ascending Ao: 29.92 (22-36mm) LVDs: 21.20 (25-40mm) Aortic Root: 31.37 mm Volumes Left Atrial Volume (Systole) LA ESV Index: 43.10 mL/m2 Aortic Valve AoV Peak Foster.: 1.49 m/s AO Peak Gr.: 8.89 mmHg LVOT Max P.10 mmHg AO Mean Gr.: 4.64 mmHg LVOT Mean P.51 mmHg LVOT Max V: 1.33 m/s AO V2 VTI: 26.14 cm LVOT Mean V: 0.86 m/s LIZBETH (VTI): 2.42 cm2 LVOT V1 VTI: 26.29 cm AI Mcminn: 1.94 m/s2 AI PHT: 517.89 [place] [address] 2 D/M-MODE ECHOCARDIOGRAM Name: MADIHA CAMERON Room: [address] IN M.R.#: [id number] Admission: 11/19/19 Attend Phys: Duc wilder Sa Discharge: Date of : 34 Date of Service: 11/21/19 1559 Report #: [id number] Mitral Valve E/A Ratio: 0.70 MV Decel. Time: 188.55 ms MV E Max Foster.: 0.65 m/s MV PHT: 54.68 ms MVA (PHT): 4.02 cm2 TDI E/Lateral E': 9.29 E/Medial E': 8.13 Medial E' Foster.: 0.08 m/s Lateral E' Foster.: 0.07 m/s Pulmonary Valve PV Peak Foster.: 1.11 m/s PV Peak Gr.: 4.95 mmHg Tricuspid Valve RAP Estimate: 5.00 mmHg TR Peak Gr.: 24.87 mmHg RVSP: 29.87 mmHg PA Pressure: 29.87 mmHg Left Ventricle The left ventricle is normal size. There is normal LV segmental wall motion. There is normal left ventricular wall thickness. Left ventricular systolic function is normal. The left ventricular ejection fraction is within the normal range. LVEF is 65%. Grade I - abnormal relaxation pattern. Right Ventricle The right ventricle is normal size. The right ventricular systolic function is normal. Atria Left atrium is mildly dilated. Right atrium is mildly dilated. Aortic Valve Aortic valve leaflets are mildly thickened. Mild aortic regurgitation. There is no aortic valvular stenosis. Mitral Valve The mitral valve is normal in structure. There is no mitral valve regurgitation noted. No evidence of mitral valve stenosis. Tricuspid Valve The tricuspid valve is normal in structure. Trace [place]icus[place] [address] 2 D/M-MODE ECHOCARDIOGRAM Name: MADIHA CAMERON Room: [address] IN .R.#: [id number] Admission: 11/19/19 Attend Phys: Duc wilder Sa Discharge: Date of : 34 Date of Service: 11/21/19 1559 Report #: [id number] Pulmonic Valve The pulmonary valve is normal in structure. There is no pulmonic valvular regurgitation. Great Vessels The aortic root is normal in size. IVC is normal in size and collapses >50% with inspiration. Pericardium There is no pericardial effusion. <Conclusion> The left ventricle is normal size. There is normal left ventricular wall thickness. Left ventricular systolic function is normal. The left ventricular ejection fraction is within the normal range. LVEF is 65%. Grade I - abnormal relaxation pattern. The right ventricle is normal size. Left atrium is mildly dilated. Right atrium is mildly dilated. Aortic valve leaflets are mildly thickened. Mild aortic regurgitation. There is no aortic valvular stenosis. The mitral valve is normal in structure. IVC is normal in size and collapses >50% with inspiration. There is no pericardial effusion. There is normal LV segmental wall motion. <ELECTRONICALLY SIGNED> By: Lamont Murdock MD, FACC 11/21/19 1559 1559 1559 Lamont Murdock MD, FACC /INF
--- NOTE | 2019-11-21 16:41 | EKG ---
[place] [address] ELECTROCARDIOGRAM REPORT Name: MADIHA CAMERON Room: [address] ADM IN M.R.#: [id number] Admission: 11/19/19 Attend Phys: Duc wilder Sa Discharge: Date of : 34 Date of Service: 11/19/19 1549 Report #: [id number] THIS REPORT FOR: //name// [facility] Test Date: 2019-11-19 Test Time: 15:49:51 Pat Name: MADIHA ACMERON Department: Room: [address] Gender: F Route Driver: : 1930 Requested By: Francisco Torres Order Number: [id number] Michele MD: Lamont Murdock Measurements Intervals [place] Rate: 66 P: 57 [place]: 177 QRS: 25 QRSD: 92 T: 61 QT: 447 QTc: 469 Interpretive Statements Sinus rhythm Abnormal R-wave progression, early transition Compared to ECG 11/19/2019 02:35:01 Sinus tachycardia no longer present Ventricular premature complex(es) no longer present Myocardial infarct finding no longer present Electronically Signed On 11-21-2019 16:40:09 ACID FILLER by Lamont Murdock [email or web address] <ELECTRONICALLY SIGNED> By: Lamont Murdock MD, FACC 11/21/19 1640 1549 1549 Lamont Murdock MD, FAC /EPI
--- NOTE | 2019-11-21 17:52 | CARDNUC ---
[place] [address] CARDIAC NUCLEAR IMAGING REPORT Name: MADIHA CAMERON Room: [address] IN [facility]#: [id number] Admission: 11/19/19 Attend Phys: Duc wilder Sa Discharge: Date of : 34 Date of Service: 11/21/19 1751 Report #: [id number] THIS REPORT FOR: cc: Jameel Rogers MD, Dean L. MD Liston, Michael J. MD [facility] ~ APPROVED REPORT Imaging Protocol: Rest Tc-99m/Stress Tc-99m 1 day Study performed: 11/20/2019 12:19:00 Indication: Chest pain Patient Location: In-Patient Room #: 209 Stress Tech: Sofi Waters Stress Nurse: Elise Leija RN NM Tech:SOFIA Chacon Ht: 5 ft 3 in Wt: 110 lbs BSA: 1.50 m2 BMI: 19.48 Medical History Medical History: Angina, HX tachycardia, Hypoxia, COPD, 3L O2 NC, HTN. Medications: Metoprolol, Amlodipine, ASA 325 MG, NTG. Allergies: No known drug allergies Cardiac Risk Factors: Age, HTN, COPD, Tachycardia. Previous Cardiac Procedures: None Pretest Chest Pain Characteristics: No chest pain Exercise History: Sedentary Physical Disabilities: Lumbar compression FX, Hip replacement, Left lung lobe removed. Meds Held (24 hrs): Metoprolol, NTG. Resting Data Rest SPECT myocardial perfusion imaging was performed in supine position 30 minutes following the intravenous injection of 11.1 mCi of Tc-99m Sestamibi. Time of rest injection: 1130 Date: 11/21/2019 The images were gated to evaluate regional wall motion and calculate left ventricular ejection fraction. Administration Route: IV Administration Site: [place] [address] CARDIAC NUCLEAR IMAGING REPORT Name: MADIHA CAMERON Room: [address] IN [facility]#: [id number] Admission: 11/19/19 Attend Phys: Duc wilder Sa Discharge: Date of : 34 Date of Service: 11/21/19 1751 Report #: [id number] Pharmacologic Stress Pharmacologic stress test was performed by injecting Regadenoson 0.4 mg IV push over 10-15 seconds immediately followed by the intravenous injection of 31.7 mCi of Tc-99m Sestamibi. Time of stress injection: 1400 Date: 11/21/2019 Administration Route: IV Administration Site: Left Arm Gated Stress SPECT was performed 40 minutes after stress injection. The images were gated to evaluate regional wall motion and calculate left ventricular ejection fraction. Stress only was performed in the Supine position. Stress Test Details Stress Test: Pharmacologic stress testing performed using 0.4 mg of regadenoson per 5 mL given IV over 10 seconds. Reason for pharmacologic stress test: Lumbar compression FX, Hip replaced, Left lung lobe removed.. HR Max Heart Rate (APMHR): 133 bpm Resting HR: 88 bpm Target HR (85% APMHR): 113 bpm Max HR Achieved: 130 bpm % of APMHR: 97 Recovery HR: 112 bpm BP Resting BP: 136/67 mmHg Max BP: 125/61 mmHg Recovery BP: 126/67 mmHg ECG Resting ECG: Sinus Rhythm, LVH with repolarization changes Stress ECG: Sinus Rhythm, LVH with repolarization changes ST Change: None Arrhythmia: None Recovery ECG: Sinus Rhythm, LVH with repolarization changes Recovery ST Change: None Recovery Arrhythmia: None Clinical Reason for Termination: Completed protocol Stress Symptoms: Chest tightness, abdomen fullness, burping. Exercise duration: 00 min 00 sec Exercise capacity: 1.00 [place] [address] CARDIAC NUCLEAR IMAGING REPORT Name: MADIHA CAMERON Room: [address]#: [id number] Admission: 11/19/19 Attend Phys: Duc wilder Sa Discharge: Date of : 34 Date of Service: 11/21/19 1751 Report #: [id number] The patient noted some chest pressure and heaviness with Lexiscan infusion. This was felt to be medication effect in light of perfusion study findings. Nurse Comments An 89 year old female inpatient presented for a sitting Lexiscan r/t CP. Test tolerated. Patient exhibited irregular HR/Tachycardia with PVC's during test and recovery. Patient was escorted via wheelchair by staff to [facility] for imaging. Patient was stable and stated she felt good at that time. Stress ECG Conclusion The baseline 12-lead EKG shows left jugular hypertrophy with repolarization abnormalities. EKGs obtained during and post Lexiscan infusion show sinus rhythm and sinus tachycardia with persistent hypertrophy changes noted. There were unifocal premature ventricular contractions in recovery. Study Quality Study: Good Artifact: No artifact Study Data At rest, the left ventricular ejection fraction was 80%.. Post stress, the left ventricular ejection was 79%.. TID = 1.01. Perfusion Perfusion images obtained at rest and post Lexiscan stress show uniform uptake of the radioisotope throughout the myocardium. There were no defects to suggest infarct or ischemia. Wall Motion LV systolic function is normal on gated studies. There was no evidence of significant underlying wall motion abnormality. Nuclear Conclusion ECG Findings: non-diagnostic Clinical Findings: negative for ischemia Nuclear Findings: negative for ischemia Exercise Capacity: not assessed Left Ventricular Function: normal Risk Study: low Perfusion images show no defect to suggest infarct or ischemia. Left ventricular systolic function appears normal on gated studies. This [place] [address] CARDIAC NUCLEAR IMAGING REPORT Name: MADIHA CAMERON Room: [address]#: [id number] Admission: 11/19/19 Attend Phys: Duc wilder Sa Discharge: Date of : 34 Date of Service: 11/21/19 1751 Report #: [id number] <Conclusion> The baseline 12-lead EKG shows left jugular hypertrophy with repolarization abnormalities. EKGs obtained during and post Lexiscan infusion show sinus rhythm and sinus tachycardia with persistent hypertrophy changes noted. There were unifocal premature ventricular contractions in recovery. <ELECTRONICALLY SIGNED> By: Sudarshan Root MD, FACC 11/21/191750 50 50 Sudarshan Root MD, FACC /INF
--- NOTE | 2019-11-21 18:50 | NUR ---
ODISCHARGE COMPLETED. HOME HEALTH ORDERED. VSS AND PATINET IN NO APPARENT DISTRESS AT THIS TIME. HOURLY ROUDNIG COMPLETD FOR PATIET SAFETY.
== END 2019-11-21 18:45 | disposition home health service (06) | DRG 178 ==
LOC: M.ERS 02:30 → M.TBA-ER 03:44 → M.2W 03:44
PROVIDERS: Emergency Medicine Emergency Medical Services; ADMIT Family Medicine
DX: J69.0 Pneumonitis due to inhalation of food and vomit (principal); J96.11 Chronic respiratory failure with hypoxia; I20.9 Angina pectoris, unspecified; I10 Essential (primary) hypertension; J44.9 Chronic obstructive pulmonary disease, unspecified; Z96.643 Presence of artificial hip joint, bilateral; M54.9 Dorsalgia, unspecified; I27.20 Pulmonary hypertension, unspecified; G47.00 Insomnia, unspecified; F41.9 Anxiety disorder, unspecified; Z79.82 Long term (current) use of aspirin; Z90.710 Acquired absence of both cervix and uterus; Z79.51 Long term (current) use of inhaled steroids; Z87.311 Personal history of (healed) other pathological fracture; Z79.899 Other long term (current) drug therapy; Z99.81 Dependence on supplemental oxygen; Z90.49 Acquired absence of other specified parts of digestive tract

== ENCOUNTER 2020-03-12 12:31 | Inpatient (IN) | payer MEDICARE ==
[~2020-03-12] VITALS: Ht 160 cm; Wt 55.1 kg
[~2020-03-12 12:31] MED LIST changes: +ALBUTEROL2.5 MG/3 M INH; +IPRAT-ALBUT 0.5-3 ML INH; +MIRALAX119 GM PO
[2020-03-12 13:07] VITALS: BP 126/77
[2020-03-12 13:41] LABS: ABSOLUTE EOSINOPHILS 0.1 thou/uL (0.0-0.7); ABSOLUTE LYMPHOCYTES 1.6 thou/uL (0.8-5.3); ABSOLUTE MONOCYTES 0.8 thou/uL (0.0-1.2); ABSOLUTE NEUTROPHILS 4.9 thou/uL (1.6-8.1); BASOPHILS 0.6 %; EOSINOPHILS 0.8 %; HEMATOCRIT 39.2 % (37.0-47.0); HEMOGLOBIN 13.1 gm/dL (12.0-15.0); LYMPHOCYTES 22.1 %; MCH 31.6 pg (26.0-34.0); MCHC 33.5 g/dL (28.0-37.0); MCV 94.3 fL (80.0-100.0); MONOCYTES 10.2 %; MPV 6.9 fl. (7.2-11.1); NUCLEATED RBCS 0 /100WBC; PLATELET COUNT* 263 thou/uL (150-400); POLYS 66.3 %; RBC 4.16 mil/uL (4.20-5.00); WBC 7.5 thou/uL (4.0-11.0)
[2020-03-12 13:47] LABS: CALCIUM 8.5 mg/dL (8.5-10.1); POTASSIUM 4.4 mmol/L (3.5-5.1)
[2020-03-12 13:52] LABS: ALBUMIN 3.6 g/dL (3.4-5.0); TOTAL BILIRUBIN 0.4 mg/dL (<0.1-1.0); TOTAL PROTEIN 7.5 g/dL (6.4-8.2)
--- NOTE | 2020-03-12 15:45 | NUR ---
TUNDE NOTIFIED UPON PT RETURN FROM CT.PT CONNECTED TO O2. PT WAS NOT CONNECTED TO MONITOR SHE WAS NOT PRIOR TO CT
[2020-03-12 16:11] LABS: URINE BILIRUBIN NEGATIVE (Negative); URINE BLOOD NEGATIVE (Negative); URINE CLARITY CLEAR; URINE COLOR YELLOW; URINE GLUCOSE-RANDOM NEGATIVE (Negative); URINE KETONES NEGATIVE (Negative); URINE LEUKOCYTES-REFLEX 2+ (Negative); URINE NITRITE-REFLEX NEGATIVE (Negative); URINE PROTEIN NEGATIVE (Negative); URINE SPECIFIC GRAVITY <= 1.005 (1.005-1.030); URINE UROBILINOGEN 0.2 E.U./dl (0.2-1.0)
[2020-03-12 16:19] LABS: SQUAMOUS 0-3 Few /LPF (0-3)
[2020-03-12 16:20] LABS: BACTERIA-REFLEX >30 Many /HPF (None Seen); CASTS None Seen /LPF (None Seen); CRYSTALS None Seen /LPF (None Seen); URINE RBC 0-2 Rare /HPF (0-2); WBC CLUMPS Few (None Seen)
[2020-03-12] MEDS ORDERED: AMOXICILLIN500 M1 PO (16:34)
[2020-03-12] MEDS ORDERED: ZOFRAN ODT4 MG PO (16:34)
[2020-03-12 16:45] LABS: BE 1.2 mmol/L (-2 to +3); PO2 84.6 mmHg (75.0-100.0)
[2020-03-12 17:40] VITALS: BP 124/60
[2020-03-12 20:00] VITALS: BP 118/44
[2020-03-12 20:21] LABS: BE 0.5 mmol/L (-2 to +3); PO2 93.9 mmHg (75.0-100.0); pH 7.304 (7.340-7.450)
[2020-03-12 20:24] LABS: PCO2 57.3 mmHg (35.0-45.0)
[2020-03-13] VITALS: BP 142/50
--- NOTE | 2020-03-13 06:02 | NUR ---
PT STATED THAT SHE HAD BEEN TEST FOR COVID ABOUT A WEEK AGO AT [facility] AND GOT HER RESULTS BACK AND THAT THE RESULTS WHERE NEGITIVE. WILL PASS INFORMATION TO ON COMMING SHIFT.
--- NOTE | 2020-03-13 07:26 | EKG ---
[place] [address] ELECTROCARDIOGRAM REPORT Name: MADIHA CAMERON Room: [place] [address] ADM IN .R.#: [id number] Admission: 03/12/20 Attend Phys: Mckenzie Rodrigez, Discharge: Date of : 34 Date of Service: 03/12/20 1323 Report #: [id number] THIS REPORT FOR: //name// [facility] ED Test Date: 2020-03-12 Test Time: 13:23:00 Pat Name: MADIHA CAMERON Department: Room: [facility] Gender: F Sand Cutter Operator: PATTI : 1930 Requested By: Xochilt Chávez Order Number: [id number] MD: Sudarshan Root Measurements Intervals [place] Rate: 72 P: 50 ND: 175 QRS: 31 QRSD: 84 T: 63 QT: 408 QTc: 447 Interpretive Statements Sinus rhythm Abnormal R-wave progression, early transition Compared to ECG 11/19/2019 15:49:51 No significant changes Electronically Signed On 03-13-2020 7:25:31 CDT by Sudarshan Root [email or web address] <ELECTRONICALLY SIGNED> By: Sudarshan Root MD, [facility] 03/13/20 0725 1323 1323 Sudarshan Root MD, [facility] /EPI
[2020-03-13 09:12] LABS: HEMATOCRIT 38.4 % (37.0-47.0); HEMOGLOBIN 12.6 gm/dL (12.0-15.0); MCH 31.1 pg (26.0-34.0); MCHC 32.9 g/dL (28.0-37.0); MCV 94.3 fL (80.0-100.0); MPV 6.8 fl. (7.2-11.1); NUCLEATED RBCS 0 /100WBC; PLATELET COUNT* 259 thou/uL (150-400); RBC 4.07 mil/uL (4.20-5.00); RDW-CV 13.6 % (10.5-14.5); WBC 4.4 thou/uL (4.0-11.0)
[2020-03-13 09:22] VITALS: BP 132/58
[2020-03-13 09:34] LABS: ABSOLUTE LYMPHOCYTES 0.5 thou/uL (0.8-5.3); ABSOLUTE NEUTROPHILS 3.9 thou/uL (1.6-8.1); PLATELET ESTIMATE ADEQUATE
[2020-03-13 09:39] LABS: ALBUMIN 3.3 g/dL (3.4-5.0); CALCIUM 8.1 mg/dL (8.5-10.1); CREATININE 0.9 mg/dL (0.6-1.3); MAGNESIUM 2.1 mg/dL (1.8-2.4); POTASSIUM 4.8 mmol/L (3.5-5.1); TOTAL BILIRUBIN 0.3 mg/dL (<0.1-1.0); TOTAL PROTEIN 7.1 g/dL (6.4-8.2)
[2020-03-13 11:34] VITALS: BP 135/60
[2020-03-13 16:00] VITALS: BP 120/40
--- NOTE | 2020-03-13 17:00 | NUR ---
PT.COVID PENDING. CM UNABLE TO SPEAK DIRECTLY WITH PT. CALLED DAUGHTER,MARKUS. SHE SAID PT.LIVES ALONE AND DOES WELL. 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 SHE HAS A NEBULIZER AND O2 AT HOME. DOESN'T WEAR O2 AT NIGHT BECAUSE SHE SAID THE NOISE KEEPS HER AWAKE. ALSO HAS A WALKER BUT DOESN'T ROUTINELY USE IT. PTS SON DRIVES HER TO THE STORE AND TAKES HER TO APPTS IF PT.DOESN'T FEEL LIKE DRIVING. ADVANCE DIRECTIVE ON FILE AND NAMES DAUGHTER DPOA. MARKUS SAID SHE BELIEVES HER MOM IS A DNR. PT.IS LISTED HERE FULL CODE. NOTIFIED RN TO PASS ON SO CAN DISCUSS WITH PT.TOMORROW. PT.HAS A HX OF [facility] IN THE PAST.
[2020-03-13 20:20] VITALS: BP 117/46
[2020-03-14] VITALS: BP 137/69
[2020-03-14 04:00] VITALS: BP 119/46
[2020-03-14 05:38] LABS: ABSOLUTE LYMPHOCYTES 0.5 thou/uL (0.8-5.3); ABSOLUTE MONOCYTES 0.3 thou/uL (0.0-1.2); ABSOLUTE NEUTROPHILS 9.7 thou/uL (1.6-8.1); BASOPHILS 0.1 %; HEMATOCRIT 35.1 % (37.0-47.0); HEMOGLOBIN 11.8 gm/dL (12.0-15.0); LYMPHOCYTES 4.9 %; MCH 31.6 pg (26.0-34.0); MCHC 33.6 g/dL (28.0-37.0); MPV 7.4 fl. (7.2-11.1); NUCLEATED RBCS 0 /100WBC; PLATELET COUNT* 250 thou/uL (150-400); RBC 3.73 mil/uL (4.20-5.00); RDW-CV 13.3 % (10.5-14.5); WBC 10.5 thou/uL (4.0-11.0)
[2020-03-14 05:47] LABS: CALCIUM 8.3 mg/dL (8.5-10.1); CREATININE 0.9 mg/dL (0.6-1.3); MAGNESIUM 2.1 mg/dL (1.8-2.4); POTASSIUM 4.2 mmol/L (3.5-5.1)
--- NOTE | 2020-03-14 06:37 | NUR ---
PATIENT PROGRESSING TOWARDS GOALS: PATIENT STATES STOOLS HAVE "NORMALIZED." DENIES NAUSEA/VOMITING/DIARRHEA. AFEBRILE. PATIENT DENIES SHORTNESS OF AIR. HOPEFUL TO BE DISCHARGED HOME TODAY. COVID SWAB RESULTS BACK-NONE DETECTED. CALL LIGHT WITHIN REACH
[2020-03-14 09:51] VITALS: BP 123/43
[2020-03-14 12:30] VITALS: BP 121/53
--- NOTE | 2020-03-14 13:02 | NUR ---
ASSUMED CARE OF PT THIS AM AROUND 07- GAMES MANAGER IN PLACE ORDERED, TRACING SR- UPON ASSESSMENT PT NOTED TO BE RESTING IN BED, WATCHING TV- PT A&O X4- CONT OF BOWEL AND BLADDER- UP AD-LORENZO IN ROOM TO BED SIDE COMMODE- COURSE LUNG SOUNDS NOTED TO RLL, DYSPNEA NOTED ON EXERTION- VSS, O2 SAT 95% ON 3L VIA NC- ABD SOFT/ROUND/NON-TENDER, BS X4 QUADS- BM REPORTED THIS AM- IV NOTED TO RIGHT AC INTACT ANS SL, IV ABT GIVEN THIS AM PRESCRIBED- GOOD PO INTAKE NOTED WITH MEALS- PT DENIES ANY C/O PAIN/DISCOMFORT AT THIS TIME- CALL LIGHT AND PERSONAL BELONGINGS WITH IN REACH- ALL NEEDS MET AT THIS TIME-WCTM
[2020-03-14 17:10] VITALS: BP 141/59
[2020-03-14 20:40] VITALS: BP 109/55
[2020-03-15 00:32] VITALS: BP 148/82
[2020-03-15 04:10] VITALS: BP 117/60
--- NOTE | 2020-03-15 05:46 | NUR ---
PATIENT PROGRESSING TOWARDS GOALS: REMAINS ON 3L O2 NC, DENIES SHORTNESS OF AIR. STATES SHE "ISN'T SURE WHY SHE WAS NOT SENT HOME YESTERDAY." EDUCATED PATIENT ON UPDATED PLAN OF CARE, INCLUDING SPEECH EVALUATION TO RULE OUT ASPIRATION. PATIENT VERBALIZES UNDERSTANDING. PATIENT NPO UNTIL ST EVAL. PATIENT SEEN UTILIZING INCENTIVE SPIROMETER THROUGHOUT SHIFT. CALL LIGHT WITHIN REACH
[2020-03-15 07:51] VITALS: BP 141/58
--- NOTE | 2020-03-15 08:12 | NUR ---
ASSUMED CARE OF PT THIS AM AROUND 0715- POLISHING MACHINE TENDER IN PLACE ORDERED, TRACING SR- UPON ASSESSMENT PT NOTED TO BE RESTING IN BED, WATCHING TV- PT A&O X4- CONT OF BOWEL AND BLADDER- UP AD-LORENZO IN ROOM, STEADY GAIT NOTED- LCTA, DIMINISHED IN BASES- VSS, O2 SAT 99% ON 3L VIA NC- ABD SOFT/ROUND/NON-TENDER, BS X4 QUADS- LAST BM REPORTED 03/14/20- IV NOTED TO LEFT AC INTACT AND SL, IV ABT GIVEN THIS AM PRESCRIBED- +1 BLE EDEMA NOTED-PT CURRENLTY NPO FOR PLANNED ST EVAL- DENIES ANY C/O PAIN/DISCOMFORT AT THIS TIME- CALL LIGHT AND PERSONAL BELONGINGS WITH IN REACH- ALL NEEDS MET AT THIS TIME-WCTM
[2020-03-15 12:11] VITALS: BP 140/60
--- NOTE | 2020-03-15 16:00 | NUR ---
DISCUSSED WITH TODAY. MOST LIKELY DISCHARGE HOME TOMORROW WITH HOME HEALTH. PT/OT EVALS TODAY.
[2020-03-15 17:35] VITALS: BP 134/66
[2020-03-15 20:00] VITALS: BP 151/58
[2020-03-16 04:00] VITALS: BP 140/60
[2020-03-16 04:53] LABS: HEMOGLOBIN 11.9 gm/dL (12.0-15.0); MCH 31.5 pg (26.0-34.0); MCHC 33.9 g/dL (28.0-37.0); MPV 8.2 fl. (7.2-11.1); RBC 3.76 mil/uL (4.20-5.00); RDW-CV 13.7 % (10.5-14.5); WBC 12.1 thou/uL (4.0-11.0)
[2020-03-16 05:07] LABS: CALCIUM 8.6 mg/dL (8.5-10.1); MAGNESIUM 2.4 mg/dL (1.8-2.4); POTASSIUM 4.2 mmol/L (3.5-5.1); TOTAL BILIRUBIN 0.3 mg/dL (<0.1-1.0); TOTAL PROTEIN 5.8 g/dL (6.4-8.2)
--- NOTE | 2020-03-16 05:54 | NUR ---
No acute event this shift. AOX4, up ad radha, O2 sat 90's 3L NC. Denies pain. Hourly rounding, call light within reach, will continue to monitor.
[2020-03-16 08:00] VITALS: BP 134/58
[2020-03-16 11:32] VITALS: BP 140/66
[2020-03-16] MEDS ORDERED: KEFLEX500 M1 PO (12:50)
[2020-03-16] MEDS ORDERED: PREDNISONE 20 M20 MG PO (12:50)
[2020-03-16 13:06] VITALS: BP 140/66
--- NOTE | 2020-03-16 15:17 | NUR ---
ORDERS RECEIVED AND CHART REVIEWED, HOWEVER PATIENT DC'ED PRIOR TO P.T. EVALUATION. TEOFILO MICHELE, MPT
--- NOTE | 2020-03-16 16:44 | NUR ---
PT.DISCHARGED BEFORE HOMEHEALTH INFORMATION PUT IN DISCHARGE ORDERS. CM SET UP HH WITH [facility], SHE HAD USED THEM BEFORE. FAXED FACE SHEET,H&P AND DISCHARGE SUMMARY WITH MED LIST TO [facility]. SPOKE WITH INTAKE/[phone]. CALLED PT.TO INFORM OF HH SET UP.
--- NOTE | 2020-03-18 21:46 | CON ---
[address] [address] CONSULTATION Name: MADIHA CAMERON Room: [address] IN ..#: [id number] Admission: 03/12/20 Attend Phys: Mckenzie Rodrigez MD Discharge: 03/16/20 Date of : 34 Report #: [id number] THIS REPORT FOR: //name// cc: Jameel Rogers MD, Dean L. MD ~ THIS REPORT FOR: //name// CC: Jameel Rodrigez DATE OF SERVICE: 03/13/2020 REQUESTING PHYSICIAN: Mckenzie Rodrigez MD INDICATION FOR CONSULTATION: Respiratory failure. HISTORY OF PRESENT ILLNESS: This is an 89-year-old female. Interestingly, she is a lifetime nonsmoker. The patient, however, has a history of oxygen dependent COPD. The patient's did use to smoke. The patient also has had resection of part of her left lung done. According to the records, the patient may have had a remote history of a pulmonary malignancy. The patient, however, states that she is not aware of having lung cancer in the past and that she had surgery on her lung for COPD. The patient is now admitted after having been unwell for the last 3-4 days. The patient reports that she ate at a [employer] restaurant on Thursday to celebrate her birthday. She reports that subsequently she did have abdominal pain. She reported, according to the ER records, to be subsequently having chills and sweats. She also was reported to be having increasing shortness of breath. The patient, according to the records from the ER, denied having any increase in cough. The patient's son, however, according to the records, reported that she did have an increase in cough. The patient did not have any sputum production. Despite having reports of chills and sweats, there is no fever. She did not have chest pain. Does not have any other upper respiratory complaints. Does not report loss of smell. The patient does report that she has passed black stools or at least 1 black stool. She had been having diarrhea. She is reported to have had guaiac testing in the ER, which is negative. When I was called last evening, I reviewed her arterial blood gas performed. Around 4:30 p.m., I was told that she had subsequently been placed on a BiPAP. I, therefore, ordered repeat arterial blood gas testing, which in fact is noted to be performed on 3 liters oxygen via nasal cannula. I recommended keeping the patient on BiPAP at night while asleep. The patient reports that she did not like the BiPAP last night. There is only a limited duration [place] [address] CONSULTATION Name: MADIHA CAMERON Room: [address] IN M.R.#: [id number] Admission: 03/12/20 Attend Phys: Mckenzie Rodrigez MD Discharge: 03/16/20 Date of : 32 Report #: [id number] started last night. There is no swelling of lower extremities. There is no calf pain. She did have nausea earlier, which has now subsided. REVIEW OF SYSTEMS: I asked her a total of 12 questions for review of systems. The patient answers to the negative except as mentioned above. PAST MEDICAL HISTORY: COPD, on oxygen, but a lifetime nonsmoker. Resection of part of the left lung. Per the records, the patient may have had a malignancy in her lung. The patient, however, states that she is not aware of this and that the resection may have been for issue related to COPD. Left hip replacement, right hip replacement, hysterectomy, colonoscopy. She has had 2 bowel blockages in the past. The patient's last available echocardiogram is from a few months ago, which shows a left ventricular ejection fraction of 65% without elevation in right heart pressures. There is a previous echocardiogram from September of 2019, which also shows a pulmonary artery systolic pressure of 38. SOCIAL HISTORY: She is a lifetime nonsmoker. There is no known history of heavy alcohol use or illegal drug use. The patient has had some exposure to secondhand smoke including that her was a smoker. CURRENT MEDICATIONS: List in [facility] reviewed. HOME MEDICATIONS: List also in [facility] reviewed. FAMILY HISTORY: As discussed, there is a history of smoking in her family and she has had exposure to secondhand smoke. No other pertinent family history is known at this time. There is no known history of alpha-1 antitrypsin deficiency in her family. ALLERGIES: No known drug allergies. PHYSICAL EXAMINATION: GENERAL: She is alert, awake and oriented, does not appear to be in any distress at this time. VITAL SIGNS: Pulse of 78 and a blood pressure of 135/60. She is saturating 98%. She is on 2 liters oxygen via nasal cannula. She is afebrile with a T-max of 36.6. HEENT: Head is normocephalic and atraumatic. There is no throat erythema. NECK: Does not show raised JVP, asymmetry, mass or lymph nodes. CHEST: Symmetrical expansion on inspection and palpation. On auscultation, breath sounds are decreased bilaterally. Breath sounds are essentially absent at the left lung base. HEART: Regular. There is no murmur. [facility] [address] [place] [address] CONSULTATION Name: MATYELADIOMADIHA CARLISLE Room: [address] IN [facility].#: [id number] Admission: 03/12/20 Attend Phys: Mckenzie Rodrigez MD Discharge: 03/16/20 Date of : 32 Report #: [id number] ABDOMEN: Soft and nontender. EXTREMITIES: Lower extremities show no edema and no calf tenderness. SKIN: Dry and intact. NEUROLOGICAL: Moves all extremities bilaterally equally and spontaneously. There is no focal deficit identified. LABORATORY DATA: The patient's CT of the abdomen and pelvis report is reviewed. I reviewed the lower lung films accompanying this. There is elevation in the left hemidiaphragm consistent with previous surgery on the left lung. There are air bronchograms noted at the right lung base. These findings, however, do not appear to be a change compared with the patient's previous CAT scans. The patient's chest x-ray is also reviewed. It has no other additional findings; chronic changes consistent with COPD, however, are noted. The patient's CBC as well as chemistries are in [employer] and these are reviewed. I ordered COVID-19 testing, which is pending at this time. Arterial blood gases are repeated twice and are as discussed above. ASSESSMENT AND PLAN: 1. Ykdqt-wv-ygttdvr hypoxemic and hypercarbic respiratory failure. It does appear that the patient has chronic respiratory failure secondary to chronic obstructive pulmonary disease. The reason why the patient has chronic obstructive pulmonary disease does need to be defined further. She herself is a lifetime nonsmoker; however, she has had secondhand exposure to cigarette smoke. Her arterial blood gases appear to point towards an acute component to her respiratory failure in addition to chronic. I do feel that the patient will benefit from using a BiPAP or Trilogy device while asleep long-term. I discussed this with the patient. The patient stated that she would not be interested in having either of these set up at her home. I did, however, ask her to consider wearing BiPAP for a few days while she is still here, as there may be benefit. 2. Chronic obstructive pulmonary disease exacerbation. The patient appears to be providing a limited history. She has given varying statements regarding whether she has shortness of breath or not. Per the ER records, she did have an increase in shortness of breath. Also, her son had reported that she had been coughing, although the patient had not. As above, based on arterial blood gases, there is an acute component of respiratory failure in addition to chronic; therefore, I would go ahead and treat her with corticosteroids. I would also go ahead and treat her with nebulized bronchodilators. The reason why the patient has COPD is not fully defined at this time. She is a lifetime nonsmoker. Therefore, I would also go ahead and do alpha-1 antitrypsin level. This in fact may not impact her management, but may be of significance to her other family members in case the deficiency in alpha-1 antitrypsin is found as this is an inherited disease. 3. Pulmonary infiltrates/rule out COVID-19. The patient does have some infiltrates as discussed above. However, these appear identical to her previous CAT scans and more likely represent chronic changes than pneumonia; however, for [address] [address] CONSULTATION Name: MADIHA CAMERON Room: [address] IN [place].#: [id number] Admission: 03/12/20 Attend Phys: Mckenzie Rodrigez MD Discharge: 03/16/20 Date of : 32 Report #: [id number] now, I agree with continuing antibiotics until her clinical picture is better defined. The patient is reported to have had an increase in shortness of breath. The patient also reported to have had chills and sweats. In addition, the patient's son had reported, according to the ER records, that she has been coughing. It is for this reason that I did order a COVID-19 screen as well. 4. Abdominal pain/black stools. Would defer followup to the GI service who have been consulted. The patient is reported to have had guaiac testing performed in the Emergency Room, which was negative. 5. Evaluation for thromboembolic phenomena. Overall, my suspicion is low. I ordered a D-dimer for tomorrow morning. If elevated, then I may consider ordering venous Dopplers to follow. Thanks for this consultation. <ELECTRONICALLY SIGNED> By: Huy Connors MD 03/18/20 2146 1538 1947Aroxana Connors MD /nt
== END 2020-03-16 13:30 | disposition home health service (06) | DRG 177 ==
LOC: M.ERS 12:31 → M.TBA-ER 17:00 → M.2W 17:00
PROVIDERS: Internal Medicine Critical Care Medicine; Personal Emergency Response Attendant; ADMIT Internal Medicine; ATTEND Internal Medicine
PROC: 5A09357 Assistance with Respiratory Ventilation, Less than 24 Consecutive Hours, Continuous Positive Airway Pressure (ICD-10-PCS; principal; 2020-03-12)
PROC: 5A09357 Assistance with Respiratory Ventilation, Less than 24 Consecutive Hours, Continuous Positive Airway Pressure (ICD-10-PCS; 2020-03-13)
DX: J15.6 Pneumonia due to other Gram-negative bacteria (principal); J96.21 Acute and chronic respiratory failure with hypoxia; J96.22 Acute and chronic respiratory failure with hypercapnia; J44.1 Chronic obstructive pulmonary disease with (acute) exacerbation; J44.0 Chronic obstructive pulmonary disease with (acute) lower respiratory infection; K44.9 Diaphragmatic hernia without obstruction or gangrene; Z20.828 Contact with and (suspected) exposure to other viral communicable diseases; Z96.643 Presence of artificial hip joint, bilateral; Z79.899 Other long term (current) drug therapy; Z85.118 Personal history of other malignant neoplasm of bronchus and lung; Z90.710 Acquired absence of both cervix and uterus

== ENCOUNTER 2020-04-02 09:06 | Emergency (ER) | payer MEDICARE ==
[~2020-04-02] VITALS: Ht 157.5 cm; Wt 49.9 kg
[~2020-04-02 09:06] MED LIST changes: +AMOXICILLIN500 M1 PO; +ZOFRAN ODT4 MG PO
[2020-04-02 09:39] LABS: ABSOLUTE EOSINOPHILS 0.1 thou/uL (0.0-0.7); ABSOLUTE LYMPHOCYTES 1.2 thou/uL (0.8-5.3); ABSOLUTE MONOCYTES 0.5 thou/uL (0.0-1.2); ABSOLUTE NEUTROPHILS 3.8 thou/uL (1.6-8.1); BASOPHILS 0.7 %; EOSINOPHILS 1.5 %; HEMATOCRIT 34.8 % (37.0-47.0); HEMOGLOBIN 11.7 gm/dL (12.0-15.0); LYMPHOCYTES 20.9 %; MCH 31.4 pg (26.0-34.0); MCHC 33.7 g/dL (28.0-37.0); MONOCYTES 8.9 %; MPV 6.6 fl. (7.2-11.1); NUCLEATED RBCS 0 /100WBC; PLATELET COUNT* 239 thou/uL (150-400); RBC 3.74 mil/uL (4.20-5.00); RDW-CV 13.7 % (10.5-14.5); WBC 5.6 thou/uL (4.0-11.0)
[2020-04-02 09:48] LABS: CALCIUM 8.4 mg/dL (8.5-10.1); CREATININE 0.9 mg/dL (0.6-1.3); POTASSIUM 3.8 mmol/L (3.5-5.1)
[2020-04-02 09:59] LABS: APTT 24.7 Seconds (25.0-31.3); INR 0.9; PROTIME 9.8 Seconds (9.20-11.50)
[2020-04-02 10:02] LABS: ALBUMIN 3.1 g/dL (3.4-5.0); CK-MB MASS 1.2 ng/mL (<0.5-3.6); MAGNESIUM 2.1 mg/dL (1.8-2.4); TOTAL BILIRUBIN 0.4 mg/dL (<0.1-1.0); TOTAL PROTEIN 6.5 g/dL (6.4-8.2)
--- NOTE | 2020-04-02 15:38 | EKG ---
[place] [address] ELECTROCARDIOGRAM REPORT Name: KRZYSZTOFMADIHA COLLAZO Room: [facility]#: [id number] Admission: 04/02/20 Attend Phys: Discharge: Date of : 34 Date of Service: 04/02/20 [facility] Report #: [id number] THIS REPORT FOR: //name// [facility] ED Test Date: 2020-04-02 Test Time: 10:38:12 Pat Name: MADIHA CAMERON Department: Room: Gender: F Cad Designer: [employer] : 1930 Requested By: Yfn Mora Order Number: [id number] MD: Dima Veras Measurements Intervals [place] Rate: 65 P: 51 [place]: 174 QRS: 30 QRSD: 101 T: 45 QT: 437 QTc: 455 Interpretive Statements Sinus rhythm artifact noted Abnormal R-wave progression, early transition Probable left ventricular hypertrophy Electronically Signed On 04-02-2020 15:37:41 CDT by Dima Veras [email or web address] <ELECTRONICALLY SIGNED> By: Dima Veras MD, [facility] 04/02/20 1537 1038 1038 Dima Veras MD, FACC /EPI
[2020-04-02 17:36] VITALS: BP 131/70
--- NOTE | 2020-04-03 09:11 | EKG ---
[place] [address] ELECTROCARDIOGRAM REPORT Name: MADIHA CAMERON ORESTES Room: [facility]#: [id number] Admission: 04/02/20 Attend Phys: Discharge: 04/02/20 Date of : 32 Date of Service: 04/02/20913 Report #: [id number] THIS REPORT FOR: //name// [facility] ED Test Date: 2020-04-02 Test Time: 09:14:40 Pat Name: MADIHA CAMERON Department: Room: Gender: F Online Content Developer: ANABELA : 1930 Requested By: Yfn Mora Order Number: [id number] Michele MD: Sudarshan Root Measurements Intervals [place] Rate: 73 P: 39 [place]: 184 QRS: 24 QRSD: 94 T: 51 QT: 399 QTc: 440 Interpretive Statements Sinus rhythm Atrial premature complex Abnormal R-wave progression, early transition Consider left ventricular hypertrophy Compared to ECG 03/12/2020 13:23:00 Atrial premature complex(es) now present Electronically Signed On 04-03-2020 9:10:45 CDT by Sudarshan Root [email or web address] <ELECTRONICALLY SIGNED> By: Sudarshan Root MD, FACC 04/03/2010 3 3 Sudarshan Root MD, [facility] /EPI
== END 2020-04-02 17:37 | disposition home or self-care (01) ==
LOC: M.ERS 09:06
PROVIDERS: Emergency Medicine
DX: R07.89 Other chest pain (principal); J44.9 Chronic obstructive pulmonary disease, unspecified; Z90.710 Acquired absence of both cervix and uterus; Z96.643 Presence of artificial hip joint, bilateral; Z90.2 Acquired absence of lung [part of]

== ENCOUNTER 2020-05-07 18:48 | Inpatient (IN) | payer MEDICARE ==
[~2020-05-07] VITALS: Ht 160 cm; Wt 50.4 kg
[2020-05-07 18:59] VITALS: BP 168/70
[2020-05-07 19:42] LABS: ABSOLUTE LYMPHOCYTES 1.7 thou/uL (0.8-5.3); ABSOLUTE MONOCYTES 1.1 thou/uL (0.0-1.2); ABSOLUTE NEUTROPHILS 9.5 thou/uL (1.6-8.1); BASOPHILS 0.4 %; EOSINOPHILS 0.2 %; HEMATOCRIT 37.2 % (37.0-47.0); HEMOGLOBIN 12.3 gm/dL (12.0-15.0); LYMPHOCYTES 13.7 %; MCH 30.8 pg (26.0-34.0); MCV 93.5 fL (80.0-100.0); MONOCYTES 9.2 %; MPV 7.3 fl. (7.2-11.1); NUCLEATED RBCS 0 /100WBC; PLATELET COUNT* 315 thou/uL (150-400); POLYS 76.5 %; RBC 3.98 mil/uL (4.20-5.00); RDW-CV 13.8 % (10.5-14.5); WBC 12.4 thou/uL (4.0-11.0)
[2020-05-07 19:51] LABS: PROTIME 10.1 Seconds (9.20-11.50)
--- NOTE | 2020-05-07 19:59 | NUR ---
RESPIRATORY THERAPIST IS AT BEDSIDE ADMINISTERING RESPIRATORY TREATMENT.
[2020-05-07 20:05] LABS: CALCIUM 8.5 mg/dL (8.5-10.1); CREATININE 1.2 mg/dL (0.6-1.3); POTASSIUM 3.7 mmol/L (3.5-5.1)
[2020-05-07 20:08] LABS: ALBUMIN 3.5 g/dL (3.4-5.0); TOTAL BILIRUBIN 0.5 mg/dL (<0.1-1.0); TOTAL PROTEIN 7.2 g/dL (6.4-8.2)
[2020-05-07 20:59] LABS: URINE BLOOD NEGATIVE (Negative); URINE CLARITY CLEAR; URINE COLOR YELLOW; URINE GLUCOSE-RANDOM 1+ (Negative); URINE KETONES 1+ (Negative); URINE NITRITE-REFLEX NEGATIVE (Negative); URINE PROTEIN NEGATIVE (Negative); URINE UROBILINOGEN 0.2 E.U./dl (0.2-1.0)
[2020-05-07 21:06] LABS: URINE BILIRUBIN 1+ (Negative); URINE LEUKOCYTES-REFLEX 2+ (Negative)
[2020-05-07 21:07] LABS: ICTOTEST (BILI CONFIRMATORY) Negative (Negative)
[2020-05-07 21:20] LABS: BACTERIA-REFLEX 1-9 Few /HPF (None Seen); HYALINE CASTS 0-3 Few /LPF (None Seen); MUCUS 0-3 Light strn/LPF (None Seen); SQUAMOUS 4-10 Moderate /LPF (0-3)
[2020-05-07 21:21] LABS: CRYSTALS None Seen /LPF (None Seen); URINE RBC None Seen /HPF (0-2)
--- NOTE | 2020-05-07 23:48 | NUR ---
PATIENT PLACED ON HOSPTTAL BED FOR COMFORT WHILE BOARDING IN ED.
--- NOTE | 2020-05-08 00:21 | NUR ---
RECIEVED REPORT AND ASSUMED CARE OF PT.
[2020-05-08 04:00] VITALS: BP 135/50
[2020-05-08 10:59] VITALS: BP 133/67
[2020-05-08 11:16] VITALS: BP 125/57
--- NOTE | 2020-05-08 13:17 | EKG ---
[place] [address] ELECTROCARDIOGRAM REPORT Name: MADIHA CAMERON Room: [address] ADM IN .R.#: [id number] Admission: 05/08/20 Attend Phys: Dipesh Kent, Discharge: Date of : 34 Date of Service: 05/07/201912 Report #: [id number] THIS REPORT FOR: //name// [facility] ED Test Date: 2020-05-07 Test Time: 19:13:17 Pat Name: MADIHA CAMERON Department: Room: [facility] Gender: F Personal Development Mentor: EVELIN : 1930 Requested By: Naida Sanchez Order Number: [id number] MD: Sudarshan Root Measurements Intervals [place] Rate: 99 P: 53 CT: 169 QRS: 33 QRSD: 88 T: 64 QT: 374 QTc: 480 Interpretive Statements Sinus rhythm Abnormal R-wave progression, early transition Consider left ventricular hypertrophy Compared to ECG 04/02/2020 10:38:12 No significant changes Electronically Signed On 05-08-2020 13:17:31 CDT by Sudarshan Root [email or web address] <ELECTRONICALLY SIGNED> By: Sudarshan Root MD, FACC 05/08/20 1317 12 12 Sudarshan Root MD, FAC /EPI
[2020-05-08 16:00] VITALS: BP 120/50
--- NOTE | 2020-05-08 17:32 | NUR ---
A&OX4, P,W,D. UP WALKING TO BATHROOM WITH STEADY GAIT. PATIENT HAS HER NON-SKID SOCKS ON. SON CAME OUT AND SAID SHE IS HAVING LIQUID STOOLS. INFORMED HIM TO NOT FLUSH AND CALL THE NURSE WITH NEXT STOOL SO WE CAN LOOK AT IT. ALSO TALKED TO PATIENT ABOUT SAME THING AND INFORMED HER TO CALL NURSE AND NOT FLUSH NEXT STOOL SO WE CAN LOOK AT IT. PATIENT VERBALIZED UNDERSTANDING. IV LEFT AC SALINE LOCKED. PT DEIDRA 02 AT 3L PER NC. 02 SAT'S 95%. WILL CONTINUE TO MONITOR.
[2020-05-08 20:36] VITALS: BP 120/54
[2020-05-09 04:01] LABS: HEMATOCRIT 33.1 % (37.0-47.0); HEMOGLOBIN 10.8 gm/dL (12.0-15.0); MCH 30.5 pg (26.0-34.0); MCHC 32.8 g/dL (28.0-37.0); MCV 92.9 fL (80.0-100.0); MPV 7.2 fl. (7.2-11.1); RBC 3.56 mil/uL (4.20-5.00); RDW-CV 14.1 % (10.5-14.5); WBC 12.9 thou/uL (4.0-11.0)
[2020-05-09 04:37] LABS: CALCIUM 8.1 mg/dL (8.5-10.1); CREATININE 0.9 mg/dL (0.6-1.3); POTASSIUM 3.5 mmol/L (3.5-5.1)
--- NOTE | 2020-05-09 05:01 | NUR ---
PT A&OX4, ON 3L NC, VSS, PT DENIES ANY PAIN, PT SLEEPING WELL. ASSESSMENTS AND HOURLY ROUNDINGS COMPLETE. WILL CONTINUE TO MONITOR.
[2020-05-09 08:20] VITALS: BP 140/58
--- NOTE | 2020-05-09 11:06 | NUR ---
CM SPOKE TO THE PT TO DISCUSS HER HOME SITUATION, DISCHARGE PLANNING, AND TO INFORM OF THE ROLE OF CM. PT A&O. 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 PT'S OWNS 0 DME. PT HAS HX OF HH WITH [facility]. PT PLANS TO RETURN HOME AT D/C. DISCHARGE PLANNING NEEDS TBD AT THIS TIME. PT/OT ORDERED. CM WILL REMAIN AVAILABLE TO ASSIST AND FOLLOW NEEDED.
[2020-05-09 16:27] VITALS: BP 136/63
--- NOTE | 2020-05-09 17:45 | NUR ---
Pt AOx4. Up ad radha in room. VSS. Pt is tolerating IV antibiotics. Requiring 2L O2 to maintain O2 sats. Pt is SOB c exertion and has a community reinvestment act officer cough. No c/o pain or discomfort. Hourly rounding complete, will continue to monitor
[2020-05-09 21:50] VITALS: BP 150/57
[2020-05-10 04:36] LABS: HEMATOCRIT 33.3 % (37.0-47.0); HEMOGLOBIN 10.9 gm/dL (12.0-15.0); MCH 30.6 pg (26.0-34.0); MCHC 32.9 g/dL (28.0-37.0); MCV 92.9 fL (80.0-100.0); MPV 7.7 fl. (7.2-11.1); RBC 3.58 mil/uL (4.20-5.00); RDW-CV 13.9 % (10.5-14.5)
[2020-05-10 04:40] VITALS: BP 145/72
[2020-05-10 05:06] LABS: ALBUMIN 2.9 g/dL (3.4-5.0); CALCIUM 8.3 mg/dL (8.5-10.1); CREATININE 0.7 mg/dL (0.6-1.3); MAGNESIUM 2.1 mg/dL (1.8-2.4); POTASSIUM 3.6 mmol/L (3.5-5.1); TOTAL BILIRUBIN 0.3 mg/dL (<0.1-1.0); TOTAL PROTEIN 6.1 g/dL (6.4-8.2)
--- NOTE | 2020-05-10 05:21 | NUR ---
PT A&O X 4. SAT 96% ON 3L BY NC. UP TO BR INDEPENDENTLY. MEDS GIVEN ORDERED. BREATHING TREATMENT Q4H. SPUTUM SENT TO THE LAB AND RESULT PENDING. PT SEEMED A LITTLE ANXIOUS THIS MORNING. WILL CONTINUE TO MONITOR.
[2020-05-10 09:19] VITALS: BP 155/74
--- NOTE | 2020-05-10 10:21 | NUR ---
Pt AOx4. Pt complaining to nurse that she "doesnt feel good". Patient c/o racing heart and increased congestion. Pt is coarse throughout, on 3L O2. Pt is mildly tachycardic. MD paged and new orders received. MD recommending tele monitoring, EKG stat done and CXR done. Pt tolerated well. Report given to nurse on 2West. Pt transferred via wheelchair to room 202 with belongings.
--- NOTE | 2020-05-10 15:44 | EKG ---
[place] [address] ELECTROCARDIOGRAM REPORT Name: MADIHA CAMERON Room: [address] ADM IN .R.#: [id number] Admission: 05/08/20 Attend Phys: Dipesh Kent, Discharge: Date of : 34 Date of Service: 05/10/20 0910 Report #: [id number] THIS REPORT FOR: //name// [facility] Test Date: 2020-05-10 Test Time: 09:10:48 Pat Name: MADIHA CAMERON Department: Room: [facility] Gender: F Net Applications Developer: JOSE : 1930 Requested By: Mckenzie Rodrigez Order Number: [id number] MD: Sudarshan Root Measurements Intervals [place] Rate: 96 P: 64 [place]: 168 QRS: 26 QRSD: 92 T: 48 QT: 364 QTc: 460 Interpretive Statements Sinus rhythm Atrial premature complexes Abnormal R-wave progression, early transition Consider left ventricular hypertrophy Compared to ECG 05/07/2020 19:13:17 Atrial premature complex(es) now present Electronically Signed On 05-10-2020 15:44:36 CDT by Sudarshan Root [email or web address] <ELECTRONICALLY SIGNED> By: Sudarshan Root MD, FACC 05/10/20 1544 0910 0910 Sudarshan Root MD, FACC /EPI
[2020-05-10 17:18] VITALS: BP 133/60
[2020-05-10 19:45] VITALS: BP 148/71
--- NOTE | 2020-05-10 23:51 | NUR ---
PT HEART RATE INCREASING INTO 150'S, CHARGE NURSE NOTIFIED. PT SITTING ON SIDE OF BED TALKING BUT ASYMPTOMATIC. 122/78 145 18 98.4 96% O2 3L. CHARGE NURSE OLEG NOTIFIED. EKG OBTAINED SHOWING AFIB RVR. MESSAGE SENT TO DR CASEY THROUGH [facility]. CHARGE NURSE NOTIFIED NSG STACKER TENDER TO MARY JANE CASEY. ORDERS RECEIVED FOR CARDIZEM DRIP INITIATION. CARE TRANSFERRED TO OLEG BANUELOS FOR IMPLEMENTATION OF ORDERS.
[2020-05-11] VITALS (10 sets, daily range): BP systolic 116–135; BP diastolic 44–78
--- NOTE | 2020-05-11 05:23 | NUR ---
ASSUMED CARE OF PT WHEN PT WENT INTO AFIB RVR WITH RATES FROM 150'S TO 180'S. I CONCUR WITH DILCIA BANUELOSRELOCATION COMMISSIONER. CARDIZEM STARTED AT 10ML/HR. PT TOLERATED WELL. CARDIZEM TITRATED TO 5ML/HR THIS SHIFT. FALL PRECAUTIONS IN PLACE PT IS FORGETFUL AT TIMES. WILL CONTINUE WITH PLAN OF CARE.
--- NOTE | 2020-05-11 09:27 | EKG ---
[place] [address] ELECTROCARDIOGRAM REPORT Name: MADIHA CAMERON Room: [address] ADM IN M.R.#: [id number] Admission: 05/08/20 Attend Phys: Dipesh Kent, Discharge: Date of : 34 Date of Service: 05/10/20 2356 Report #: [id number] THIS REPORT FOR: //name// [facility] Test Date: 2020-05-10 Test Time: 23:56:01 Pat Name: MADIHA CAMERON Department: Room: [address] Gender: F Bisque Kiln Drawer: : 1930 Requested By: Francisco Torres Order Number: [id number] Michele MD: Dima Veras Measurements Intervals [place] Rate: 146 P: OR: QRS: 37 QRSD: 79 T: 224 QT: 249 QTc: 388 Interpretive Statements Atrial fibrillation with rapid V-rate Abnormal R-wave progression, early transition Probable LVH with secondary repol abnrm Compared to ECG 05/10/2020 09:10:48 Sinus rhythm no longer present Electronically Signed On 05-11-2020 9:26:51 CDT by Dima Veras [email or web address] <ELECTRONICALLY SIGNED> By: Dima Veras MD, FAC 05/11/20 0926 2356 2356 Dima Veras MD, FAC /EPI
--- NOTE | 2020-05-11 09:31 | EKG ---
[place] [address] ELECTROCARDIOGRAM REPORT Name: MADIHA CAMERON Room: [address] ADM IN .R.#: [id number] Admission: 05/08/20 Attend Phys: Dipesh Kent, Discharge: Date of : 34 Date of Service: 05/11/20819 Report #: [id number] THIS REPORT FOR: //name// [facility] Test Date: 2020-05-11 Test Time: 08:20:24 Pat Name: MADIHA CAMERON Department: Room: [address] Gender: F Special Procedures Tech: : 1930 Requested By: Francisco Torres Order Number: [id number] Michele MD: Dima Veras Measurements Intervals [place] Rate: 93 P: 53 [place]: 168 QRS: 32 QRSD: 95 T: 63 QT: 372 QTc: 463 Interpretive Statements Sinus rhythm Supraventricular bigeminy Consider RVH or posterior infarct Compared to ECG 05/10/2020 23:56:01 Atrial fibrillation no longer present Electronically Signed On 05-11-2020 9:31:50 CDT by Dima Veras [email or web address] <ELECTRONICALLY SIGNED> By: Dima Veras MD, [facility] 05/11/2031 9 9 Dima Veras MD, [facility] /EPI
--- NOTE | 2020-05-11 11:14 | NUR ---
Pt went into Afib last night, now on cardizem gtt. CM discussed dispo with Pt, Pt declined HH at discharge. Anticipate dc in a few days. Following.
--- NOTE | 2020-05-11 11:48 | NUR ---
ASSUMED CARE OF PT AT 0730. PT RESTING IN BED WAITING FOR BREAKFAST. A&0X4, DENIES ANY PAIN OR SHORTNESS OF BREATH AT THIS TIME. PT TRACING AFIB ON THE CORPORATE TAX PREPARER THIS AM- AT APPROXIMATELY 0820 PT NOTED TO BE CONVERTED TO SINUS RHYTHM-EKG OBTAINED TRACING SR. AT APPROXIMATELY 1050 PT NOTED TO BE BACK IN AFIB-RATE CONTROLLED IN THE 70'S-80'S. CARDIOLOGY CONSULT IN PLACE. CARDIZEM GTT INFUSING AT 5ML/HR- DR GARCIA HERE TO SEE PT THIS AM-ORDERS RECEIVED TO START SOTALOL AND ELIQUIS. -REFER TO EMAR. IV INFILTRATED THIS AM- 2 NEW IV'S PLACED TO R HAND AND LEFT FOREARM. ON 3L NC SAT 98%. PT UP SBA TO BATHROOM. PT GOAL FOR TODAY IS CONVERT TO SINUS RHYTHM AND MAINTAIN SINUS RHYTHM AND OBTAIN SPUTUM. AM ASSESSMENT CHARTED. MEDICATIONS PER DEC. PT REPOSITIONS SELF WITH REMINDERS. HOURLY ROUNDING OBSERVED. BED IN LOW POSITION. CALL LIGHT WITHIN REACH. WILL CONTINUE PLAN OF CARE.
--- NOTE | 2020-05-11 16:46 | CON ---
[address] [address] CONSULTATION Name: MATYELADIOMADIHA CARLISLE Room: [address] IN .R.#: [id number] Admission: 05/08/20 Attend Phys: Dipesh Kent MD Discharge: Date of : 34 Report #: [id number] THIS REPORT FOR: //name// cc: Jameel Rogers MD, Dean L. MD ~ THIS REPORT FOR: //name// CC: Jameel Carrasquillo MD DATE OF SERVICE: 05/11/2020 CARDIOLOGY CONSULTATION HISTORY OF PRESENT ILLNESS: The patient is an 89-year-old single white female who I was asked to see in the hospital today after she was noted to be in atrial fibrillation. The history was obtained from the patient as well as current records. The patient has had several hospitalizations here at [facility] in the past. She was admitted here in 2018 with a small bowel obstruction. She was admitted here later in 2017 with cellulitis. She was admitted here in 12/2018 with exacerbation of her asthma. She continues to live by herself, although she is not very active. She was admitted here in November of this year with chest pain as felt to be noncardiac. The patient was admitted in March of this year with exacerbation of her COPD. She came to the Emergency Room 3 days ago complaining of increasing shortness of breath and some nausea. She complained of feeling weak. She was admitted to a monitored bed. Last night, she went into rapid atrial fibrillation. She was started on IV diltiazem and converted to sinus rhythm. She notes in the past, she has had occasional episodes where her heart would race. However, she has had no syncope or heart murmur. She denies a history of myocardial infarction. She does get short of breath if she over exerts herself. She has had no edema. PAST MEDICAL HISTORY: She has had previous left lower lobectomy for nonmalignant disease. She has had previous cholecystectomy, hysterectomy, and abdominal surgery. She has no history of hypertension and diabetes. MEDICATIONS: On admission included amlodipine, metoprolol, albuterol inhaler. ALLERGIES: She has no known drug allergies. FAMILY HISTORY: Negative for heart disease. SOCIAL HISTORY: She has been twice, currently lives by herself here in [place]. No smoking. [place] [address] CONSULTATION Name: MADIHA CAMERON Room: [address]#: [id number] Admission: 05/08/20 Attend Phys: Dipesh Kent MD Discharge: Date of : 34 Report #: [id number] REVIEW OF SYSTEMS: She has had no history of stroke, liver disease, GI bleeding, kidney disease, cancer, chronic skin condition, psychiatric illness. PHYSICAL EXAMINATION: GENERAL: Revealed an elderly female lying in bed. She appeared in no distress. VITAL SIGNS: She had a blood pressure of 130/70, pulse is 70. She is afebrile. HEENT: She was anicteric. Conjunctivae are pink. Mucous membranes are moist. NECK: Veins do not appear distended. CHEST: Clear to auscultation without wheezes. CARDIOVASCULAR: Regular rate and rhythm, grade 2 systolic ejection murmur. ABDOMEN: Soft. EXTREMITIES: Had no pitting edema. IMAGING: Her ECG on admission showed a sinus rhythm, PAC, early transition. Last night, she had an ECG at 12:00 midnight showed rapid atrial fibrillation. ECG this morning shows a sinus rhythm, occasional PAC. Her workup, the patient had an echocardiogram in November of this year that showed an ejection fraction of 65%, biatrial enlargement, aortic sclerosis, and mild aortic insufficiency. Her workup, she had portable chest x-ray on admission that showed elevation of left hemidiaphragm, atelectasis, and cardiomegaly. Her CT scan of the abdomen on admission showed no acute abnormalities, elevated left hemidiaphragm, mucus plugging in the right lung, cardiomegaly, calcified coronary arteries, and kidney stone. LABORATORY DATA: Sodium 139, creatinine 0.7. Liver function studies were normal. Albumin is only 2.9. Troponin 0.06. BNP 628. In November, TSH was 1.1. Her white blood cell count 12.0, hemoglobin 10.9, and hematocrit 33.3. IMPRESSION AND RECOMMENDATIONS: 1. Paroxysmal atrial fibrillation. I would recommend starting sotalol. Because of her high CHADS score, I would consider anticoagulation with Eliquis. 2. History of asthma. 3. Hypertension. The patient had been on a calcium micheline and beta micheline in the past. 4. Previous lobectomy for benign disease. <ELECTRONICALLY SIGNED> By: Dima Veras MD, FACC 05/11/20 1646 [id number] Veras MD, FAC /nt
--- NOTE | 2020-05-11 18:05 | NUR ---
NO ACUTE CHANGES THROUGHOUT SHIFT. REFER TO CHARTING. PT SLOWLY PROGRESSING TOWARDS GOALS. UNABLE TO OBTAIN SPUTUM PT IS NOT COUGHING ANYTHING UP. PT CONTINUES TO TRACE SR THROUGHOUT AFTERNOON- RATE IN THE 60'S-70'S. PT ON SOTALOL LOAD. CARDIZEM GTT CONTINUES TO INFUSE AT 5ML/HR. VSS. PT UP TO CHAIR FOR MEALS. TOLERATED WELL. VISITOR AT BEDSIDE THROUGHOUT AFTERNOON. MEDS PER DEC. PT REPOSITIONS SELF WITH REMINDERS. HOURLY ROUNDING OBSERVED. BED IN LOW POSITION. CALL LIGHT WITHIN REACH. WILL CONTINUE PLAN OF CARE.
[2020-05-12] VITALS: BP 129/51
[2020-05-12 04:00] VITALS: BP 128/61
--- NOTE | 2020-05-12 04:35 | NUR ---
ASSUMED PT CARE AT APPROX 1930. PT IS AWAKE AND ORIENTED X4. PT IS TRACING SR ON THE SENIOR PRINCIPAL. CARDIZEM INFUSION STOPPED AT APPROX 2240 PT's HR IN THE UPPER 50's. PT REMAINED SR THROUGHOUT THIS SHIFT. PT DENIES PAIN/DISCOMFORT. PT IS ABLE TO REST MOST OF THE NIGHT. CALL LIGHT WITHIN REACH. HOURLY ROUNDING DONE FOR PT SAFETY. HIGH FALL PRECAUTIONS IN PLACE.
[2020-05-12 04:51] LABS: CALCIUM 8.6 mg/dL (8.5-10.1); CREATININE 0.8 mg/dL (0.6-1.3); MAGNESIUM 2.1 mg/dL (1.8-2.4); POTASSIUM 4.5 mmol/L (3.5-5.1)
[2020-05-12 04:54] LABS: HEMATOCRIT 36.1 % (37.0-47.0); MCH 30.8 pg (26.0-34.0); MCHC 33.3 g/dL (28.0-37.0); MCV 92.3 fL (80.0-100.0); MPV 7.7 fl. (7.2-11.1); RBC 3.91 mil/uL (4.20-5.00); RDW-CV 13.7 % (10.5-14.5); WBC 10.6 thou/uL (4.0-11.0)
[2020-05-12 08:00] VITALS: BP 117/48
--- NOTE | 2020-05-12 11:50 | NUR ---
RECIEVED REPORT AROUND 0730. ASSUMED CARE. VS AND ASSESSMENT CHARTED. MEDICATION PER DEC. PT ATTACHED TO HEART MONITOR. NO COMPLAINTS OF PAIN. SON AT BEDSIDE THIS AM. CALL LIGHT WITHIN REACH. WILL CONTINUE TO MONITOR.
[2020-05-12 12:02] VITALS: BP 120/54
[2020-05-12 16:06] VITALS: BP 120/54
--- NOTE | 2020-05-12 18:46 | NUR ---
NO NEW CHANGES FROM MORNING ASSESSMENT. MEDICATION PER DEC. NO COMPLAINTS OF PAIN. HEART MONITOR INTACT. PATIENT LYING IN BED. NEW IV IN RIGHT UPPER ARM 22G. CALL LIGHT WITHIN REACH. WILL CONTINUE TO MONITOR.
[2020-05-12 21:00] VITALS: BP 137/78
[2020-05-13] VITALS: BP 135/44
[2020-05-13 03:55] VITALS: BP 126/53
--- NOTE | 2020-05-13 05:56 | NUR ---
VITALS STABLE, AFEBRILE. PT'S ONLY COMPLAINT WAS INSOMNIA. ABLE TO SLEEP FOLLOWING SLEEP MEDS. OTHERWISE UNEVENTFUL NIGHT. DENIES PAIN. ABLE TO USE BATHROOM WITH STAND BY ASSIST. CALL LIGHT WITHIN REACH. WILL CONTINUE MONITORING.
[2020-05-13 08:00] VITALS: BP 119/41
[2020-05-13] MEDS ORDERED: ELIQUIS5 MG PO (10:08)
[2020-05-13] MEDS ORDERED: SORINE 80 MG TA80 M1 PO (10:08)
[2020-05-13] MEDS ORDERED: PREDNISONE 20 M20 MG PO (10:08)
[2020-05-13] MEDS ORDERED: LEVAQUIN 500 M500 M3 PO (10:08)
--- NOTE | 2020-05-13 11:03 | NUR ---
RECIEVED REPORT AROUND 729. ASSUMED CARE. VS AND ASSESSMENT CHARTED. MEDICATION PER DEC. PT ATTACHED TO HEART MONITOR AT . NO REPORTS OF PAIN THIS MORNING. 2+ RADIAL AND PEDAL PULSES. CALL LIGHT WITHIN REACH. WILL CONTINUE TO MONITOR.
[2020-05-13 12:00] VITALS: BP 135/41
[2020-05-13 12:42] VITALS: BP 135/41
--- NOTE | 2020-05-13 13:29 | NUR ---
RECIEVED DISCHARGE ORDERS FROM DR. ROBERTS. WENT OVER DISCHARGE WITH PATIENT. COMMUNICATED UNDERSTANDING. IV AND HEART MONITOR TAKEN OFF.
== END 2020-05-13 14:05 | disposition home or self-care (01) | DRG 871 ==
LOC: M.ERS 18:48 → M.TBA-ER 23:05 → M.ORTHSURG 05-08 07:22 → M.TBA-ER 05-08 08:19 → M.ORTHSURG 05-08 11:10 → M.2W 05-10 09:43
PROVIDERS: Emergency Medicine; Internal Medicine; ADMIT Internal Medicine; ATTEND Internal Medicine
DX: A41.9 Sepsis, unspecified organism (principal); J15.6 Pneumonia due to other Gram-negative bacteria; J96.21 Acute and chronic respiratory failure with hypoxia; J44.1 Chronic obstructive pulmonary disease with (acute) exacerbation; J44.0 Chronic obstructive pulmonary disease with (acute) lower respiratory infection; I48.20 Chronic atrial fibrillation, unspecified; N30.00 Acute cystitis without hematuria; I48.0 Paroxysmal atrial fibrillation; B96.5 Pseudomonas (aeruginosa) (mallei) (pseudomallei) as the cause of diseases classified elsewhere; Z20.828 Contact with and (suspected) exposure to other viral communicable diseases; Z96.643 Presence of artificial hip joint, bilateral; Z90.710 Acquired absence of both cervix and uterus; Z79.899 Other long term (current) drug therapy; Z90.49 Acquired absence of other specified parts of digestive tract

== ENCOUNTER 2020-07-14 11:38 | Inpatient (IN) | payer MEDICARE ==
[~2020-07-14] VITALS: Ht 152.4 cm; Wt 48.1 kg
--- NOTE | ~2020-07-14 | CON ---
[address] [address] CONSULTATION Name: KRZYSZTOFZAYMADIHA ORESTES Room: [address] IN M.R.#: [id number] Admission: 07/14/20 Attend Phys: Mckenzie Rodrigez MD Discharge: Date of : 34 Report #: [id number] THIS REPORT FOR: //name// cc: Christina Brady Stefany RNP ~ THIS REPORT FOR: //name// DATE OF SERVICE: 07/17/2020 Please note at the time of this dictation, the patient was seen and physically examined by myself. REASON FOR CONSULTATION: Difficulty swallowing. HISTORY OF PRESENT ILLNESS: This is an 89-year-old female who was brought to the hospital for increased shortness of air, cough and she was having nighttime chills and sweats at that time. She states that her cough has not been productive and that she had been fine doing normal activities. She does state that she tends to eat very fast and does not swallow her food very well. She did undergo a video swallow that showed that it was abnormal and that she had some aspiration. The patient was seen by us back in 2018, she had a Schatzki's ring that was dilated with the 51-[place]. 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 Colonoscopy showed a transverse polyp that was a tubular adenoma at that time. The patient states as long as she takes her MiraLax on a daily basis, her bowels will move regularly. She states her difficulty swallowing, has been ongoing for some time. ALLERGIES: No known drug allergies. MEDICATIONS: From home include her Eliquis, sotalol, amlodipine. She has been on prednisone, albuterol, MiraLax and Metamucil. PAST MEDICAL HISTORY: COPD. She has had UTIs in the past. PAST SURGICAL HISTORY: She had a left lung lobe removal, left hip replacement, right hip replacement, hysterectomy. FAMILY HISTORY: Noncontributory. SOCIAL HISTORY: Lives with her son. Denies any alcohol, tobacco or illegal drug use at this time. REVIEW OF SYSTEMS: Twelve-point review of systems is essentially negative except what is mentioned in the HPI. PHYSICAL EXAMINATION: [place] [address] CONSULTATION Name: MADIHA CAMERON Room: [address]#: [id number] Admission: 07/14/20 Attend Phys: Mckenzie Rodrigez MD Discharge: Date of : 32 Report #: [id number] VITAL SIGNS: Temperature 36.9, pulse 66, respirations 20, blood pressure 154/69. HEART: Regular rate and rhythm. LUNGS: Diminished with a few little crackles in the bases. ABDOMEN: Soft, positive bowel sounds in all 4 quadrants with no masses or tenderness noted. LABORATORY DATA: Hemoglobin 10.5, white count is 14.4, platelets 295. BUN is 31. GFR 79. Her chest x-ray showed bilateral bibasilar infiltrates. She had a video swallow done yesterday that showed abnormality with aspiration. She went down earlier this morning for barium swallow and those results are not available at this time. IMPRESSION: 1. Dysphagia. 2. Aspiration pneumonia. 3. Constipation. 4. Anemia. 5. Leukocytosis. 6. Anticoagulant therapy, Eliquis secondary to atrial fibrillation. PLAN: 1. Awaiting results of barium swallow. 2. Continue MiraLax. 3. We will have to have Eliquis held for several days to perform an EGD with dilatation. Timing of this to be determined. 4. Further recommendations to be made once Dr. Howard sees the patient later today. Thank you for allowing us to participate in this patient's care. Please do not hesitate to call with any questions in regard to this consult. By: [id number] Howard MD /nt
[~2020-07-14 11:38] MED LIST changes: +ELIQUIS5 MG PO; +LEVAQUIN 500 M500 M3 PO; +SORINE 80 MG TA80 M1 PO
[2020-07-14 11:48] VITALS: BP 114/72
[2020-07-14] MEDS ORDERED: NORVASC 2.5 MG2.5 M1 PO (11:53)
[2020-07-14] MEDS ORDERED: PREDNISONE 20 M20 M1 PO (11:54)
[2020-07-14 12:21] LABS: HEMATOCRIT 35.8 % (37.0-47.0); HEMOGLOBIN 11.5 gm/dL (12.0-15.0); MCH 30.1 pg (26.0-34.0); MCHC 32.1 g/dL (28.0-37.0); MCV 93.9 fL (80.0-100.0); MPV 6.8 fl. (7.2-11.1); NUCLEATED RBCS 0 /100WBC; PLATELET COUNT* 306 thou/uL (150-400); RBC 3.81 mil/uL (4.20-5.00); RDW-CV 14.8 % (10.5-14.5)
[2020-07-14 12:27] LABS: CALCIUM 8.5 mg/dL (8.5-10.1); POTASSIUM 3.8 mmol/L (3.5-5.1)
[2020-07-14 12:32] LABS: ALBUMIN 3.1 g/dL (3.4-5.0); MAGNESIUM 2.1 mg/dL (1.8-2.4); TOTAL BILIRUBIN 0.7 mg/dL (<0.1-1.0); TOTAL PROTEIN 6.6 g/dL (6.4-8.2)
[2020-07-14 12:53] LABS: PLATELET ESTIMATE ADEQUATE
[2020-07-14 13:18] LABS: BE 7.4 mmol/L (-2 to +3); PO2 78.6 mmHg (75.0-100.0); pH 7.373 (7.340-7.450)
[2020-07-14 13:20] LABS: PCO2 60.5 mmHg (35.0-45.0)
[2020-07-14 13:41] LABS: URINE BILIRUBIN NEGATIVE (Negative); URINE BLOOD NEGATIVE (Negative); URINE CLARITY CLEAR; URINE COLOR YELLOW; URINE GLUCOSE-RANDOM TRACE (Negative); URINE KETONES NEGATIVE (Negative); URINE LEUKOCYTES-REFLEX TRACE (Negative); URINE NITRITE-REFLEX NEGATIVE (Negative); URINE PROTEIN NEGATIVE (Negative); URINE SPECIFIC GRAVITY 1.015 (1.005-1.030); URINE UROBILINOGEN 0.2 E.U./dl (0.2-1.0)
[2020-07-14 13:54] LABS: BACTERIA-REFLEX 1-9 Few /HPF (None Seen); CASTS None Seen /LPF (None Seen); CRYSTALS None Seen /LPF (None Seen); SQUAMOUS 0-3 Few /LPF (0-3); URINE RBC 0-2 Rare /HPF (0-2); URINE WBC-REFLEX 0-5 Rare /HPF (0-5)
[2020-07-14 17:43] VITALS: BP 123/45
[2020-07-14 18:55] VITALS: BP 130/55
[2020-07-14 20:30] VITALS: BP 130/57
[2020-07-15] VITALS: BP 126/47
[2020-07-15 04:00] VITALS: BP 117/51
[2020-07-15 04:47] LABS: BE 0.3 mmol/L (-2 to +3); PCO2 46.9 mmHg (35.0-45.0); pH 7.363 (7.340-7.450)
[2020-07-15 04:51] LABS: PO2 160.2 mmHg (75.0-100.0)
[2020-07-15 08:07] LABS: HEMATOCRIT 35.2 % (37.0-47.0); HEMOGLOBIN 11.3 gm/dL (12.0-15.0); MCH 30.2 pg (26.0-34.0); MCHC 32.1 g/dL (28.0-37.0); MCV 94.1 fL (80.0-100.0); MPV 6.8 fl. (7.2-11.1); RBC 3.74 mil/uL (4.20-5.00); WBC 12.7 thou/uL (4.0-11.0)
[2020-07-15 08:10] VITALS: BP 128/45
[2020-07-15 08:18] LABS: CALCIUM 7.9 mg/dL (8.5-10.1); CREATININE 0.8 mg/dL (0.6-1.3); POTASSIUM 4.4 mmol/L (3.5-5.1)
[2020-07-15 08:23] LABS: ALBUMIN 2.6 g/dL (3.4-5.0); MAGNESIUM 2.1 mg/dL (1.8-2.4); TOTAL BILIRUBIN 0.4 mg/dL (<0.1-1.0); TOTAL PROTEIN 6.4 g/dL (6.4-8.2)
[2020-07-15 12:00] VITALS: BP 113/50
[2020-07-15 16:30] VITALS: BP 120/50
[2020-07-15 20:29] VITALS: BP 134/61
[2020-07-16] VITALS: BP 163/81
[2020-07-16 06:02] LABS: HEMATOCRIT 31.7 % (37.0-47.0); HEMOGLOBIN 10.3 gm/dL (12.0-15.0); MCH 30.7 pg (26.0-34.0); MCHC 32.6 g/dL (28.0-37.0); MCV 94.2 fL (80.0-100.0); MPV 7.2 fl. (7.2-11.1); RBC 3.36 mil/uL (4.20-5.00); WBC 16.6 thou/uL (4.0-11.0)
[2020-07-16 06:26] LABS: ALBUMIN 2.5 g/dL (3.4-5.0); CREATININE 0.8 mg/dL (0.6-1.3); MAGNESIUM 2.3 mg/dL (1.8-2.4); POTASSIUM 4.4 mmol/L (3.5-5.1); TOTAL BILIRUBIN 0.2 mg/dL (<0.1-1.0); TOTAL PROTEIN 5.7 g/dL (6.4-8.2)
[2020-07-16 08:00] VITALS: BP 148/57
[2020-07-16 12:00] VITALS: BP 108/47
--- NOTE | 2020-07-16 18:22 | EKG ---
[place] [address] ELECTROCARDIOGRAM REPORT Name: MADIHA CAMERON ORESTES Room: [address] ADM IN M.R.#: [id number] Admission: 07/14/20 Attend Phys: Mckenzie Rodrigez, Discharge: Date of : 34 Date of Service: 07/14/20 1151 Report #: [id number] THIS REPORT FOR: //name// [facility] ED Test Date: 2020-07-14 Test Time: 11:51:36 Pat Name: MADIHA CAMERON Department: Room: [address] Gender: F [employer]: CCD : 1930 Requested By: Xochilt Chávez Order Number: [id number] Michele MD: Sudarshan Root Measurements Intervals [place] Rate: 74 P: 48 SC: 152 QRS: 36 QRSD: 91 T: 62 QT: 433 QTc: 481 Interpretive Statements Sinus rhythm Atrial premature complex Abnormal R-wave progression, early transition Compared to ECG 05/11/2020 08:20:24 Myocardial infarct finding no longer present Electronically Signed On 07-16-2020 18:22:27 CDT by Sudarshan Root [email or web address] <ELECTRONICALLY SIGNED> By: Sudarshan Root MD, FACC 07/16/20 1822 1151 1151 Sudarshan Root MD, FACC /EPI
[2020-07-16 20:42] VITALS: BP 120/60
[2020-07-17] VITALS: BP 123/55
[2020-07-17 05:20] LABS: HEMATOCRIT 32.2 % (37.0-47.0); HEMOGLOBIN 10.5 gm/dL (12.0-15.0); MCH 30.5 pg (26.0-34.0); MCHC 32.5 g/dL (28.0-37.0); MCV 93.9 fL (80.0-100.0); MPV 7.5 fl. (7.2-11.1); RBC 3.43 mil/uL (4.20-5.00); RDW-CV 15.2 % (10.5-14.5); WBC 14.4 thou/uL (4.0-11.0)
[2020-07-17 05:36] LABS: CALCIUM 7.9 mg/dL (8.5-10.1); CREATININE 0.7 mg/dL (0.6-1.3); MAGNESIUM 2.4 mg/dL (1.8-2.4); POTASSIUM 4.4 mmol/L (3.5-5.1)
[2020-07-17 08:00] VITALS: BP 154/69
[2020-07-17 16:57] VITALS: BP 139/65
[2020-07-17 20:00] VITALS: BP 156/77
[2020-07-18 00:07] VITALS: BP 127/56
[2020-07-18 04:18] LABS: HEMATOCRIT 33.9 % (37.0-47.0); MCH 30.3 pg (26.0-34.0); MCHC 32.3 g/dL (28.0-37.0); MPV 7.3 fl. (7.2-11.1); NUCLEATED RBCS 0 /100WBC; PLATELET COUNT* 320 thou/uL (150-400); RBC 3.61 mil/uL (4.20-5.00); RDW-CV 14.9 % (10.5-14.5); WBC 14.4 thou/uL (4.0-11.0)
[2020-07-18 05:10] LABS: ALBUMIN 2.5 g/dL (3.4-5.0); CALCIUM 8.1 mg/dL (8.5-10.1); CREATININE 0.6 mg/dL (0.6-1.3); MAGNESIUM 2.9 mg/dL (1.8-2.4); POTASSIUM 4.8 mmol/L (3.5-5.1); TOTAL BILIRUBIN 0.5 mg/dL (<0.1-1.0)
[2020-07-18 06:25] LABS: ABSOLUTE LYMPHOCYTES 0.3 thou/uL (0.8-5.3); ABSOLUTE MONOCYTES 1.2 thou/uL (0.0-1.2); ANISOCYTOSIS 1+; OVALOCYTES 1+; PLATELET ESTIMATE ADEQUATE; POIKILOCYTOSIS 1+
[2020-07-18 08:00] VITALS: BP 164/75
[2020-07-18 12:00] VITALS: BP 161/62
[2020-07-18 16:25] VITALS: BP 151/75
[2020-07-18 20:00] VITALS: BP 154/85
[2020-07-19 07:58] VITALS: BP 147/79
[2020-07-19 16:32] VITALS: BP 113/54
[2020-07-19 21:00] VITALS: BP 130/61
[2020-07-20 08:00] VITALS: BP 117/86
[2020-07-20] MEDS ORDERED: CEFDINIR300 MG PO (09:10)
[2020-07-20 15:00] VITALS: BP 130/61
== END 2020-07-20 16:45 | disposition home health service (06) | DRG 177 ==
LOC: M.ERS 11:38 → M.2W 13:41 → M.TBA-ER 13:41 → M.2W 18:52 → M.3W 07-18 13:39
PROVIDERS: Internal Medicine Critical Care Medicine; Personal Emergency Response Attendant; ADMIT Internal Medicine; ATTEND Internal Medicine
DX: J69.0 Pneumonitis due to inhalation of food and vomit (principal); J96.22 Acute and chronic respiratory failure with hypercapnia; J96.21 Acute and chronic respiratory failure with hypoxia; J44.1 Chronic obstructive pulmonary disease with (acute) exacerbation; K22.10 Ulcer of esophagus without bleeding; R13.10 Dysphagia, unspecified; I48.91 Unspecified atrial fibrillation; K59.00 Constipation, unspecified; D64.9 Anemia, unspecified; I10 Essential (primary) hypertension; K22.2 Esophageal obstruction; Z85.118 Personal history of other malignant neoplasm of bronchus and lung; Z90.710 Acquired absence of both cervix and uterus; Z96.643 Presence of artificial hip joint, bilateral; Z90.49 Acquired absence of other specified parts of digestive tract; Z79.899 Other long term (current) drug therapy; Z79.01 Long term (current) use of anticoagulants; Z20.828 Contact with and (suspected) exposure to other viral communicable diseases